=== PATIENT | male | born 1975 | race Caucasian/White ===

== ENCOUNTER 2018-07-21 09:37 | Emergency (ER) | payer OTHER, SELFPAY ==
[2018-07-21 09:38] VITALS: BP 122/66; PULSE 102; RESP 16; TEMP 36.7; O2SAT 99; BMI 35.9
[2018-07-21] MEDS: Smz/Tmp Ds Tablet 1 TABLET PO (11:36)
[2018-07-21] MEDS: Ketorolac 30 MG/ML Syringe IV (11:36)
[2018-07-21 13:46] VITALS: BP 135/85; PULSE 77; RESP 18; O2SAT 98
--- NOTE | 2018-07-21 13:53 | ED.DCSUM_ITS ---
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 He has never had an abscess in the past. No fevers or systemic symptoms. Not a diabetic. - Past Medical History (1) TIA (transient ischemic attack) Status: Chronic (2) Vitamin D deficiency Status: Chronic (3) Anxiety disorder Status: Chronic (4) DVT (deep venous thrombosis) Status: Chronic Past Medical History - Allergies and Home Meds Allergies/Adverse Reactions: Allergies cortisone Allergy (Verified 11/08/16 22:24) Shortness of breath Primary Care Physician: Gonzalo Barger MD [Family Provider] - 3-5 Days if not improving Surgical History: - - tailbone cyst removed left ankle triple arthrodesis Smoking Status: Unknown if ever smoked - Family History Paternal Family History: Reports: Diabetes, Heart Disease Review of Systems All systems negative except as indicated Gastrointestinal: Reports: Abdominal pain Skin: Reports: Rash, Abscess Physical Exam Inital Vital Signs reviewed: Yes General: Well nourished, Well developed, Obese Head: Normocephalic, Atraumatic Eyes: Perrl, EOMI ENT: Moist mucous membranes, No rhinorrhea Neck: Supple, Nontender Abdomen: Soft, Nondistended, Normal bowel sounds, Tender - skin-deep only; LLQ abd wall abscess w/ significant amount of surrounding cellulitis. Skin: - - palpable pointing abscess left lower abd wall w/ surr cellulitis. no spont d/c Neurological: Alert, Oriented x3, Cranial nerves II-XII grossly intact, Normal Strength, Normal Sensation Psychological: Normal affect Diagnostic/Tx/Re-eval - Medical Decision Making Patient requires incision and drainage along with antibiotics for what is a significant surrounding cellulitis around the cutaneous abscess. There is the appearance of a possible abrasion over right where the abscess is located, unknown if that actually occurred or not given the history. He was given a dose of IV vancomycin given the significant cellulitis diameter, which was more than 10 cm, and incision and drainage was performed. See procedure note. I luis a line around the area so that the patient can monitor this. We discussed withdrawing the packing in 48 hours as long as things are appearing to be improving. He was placed on Bactrim to cover suspected MRSA. Encouraged to return for any worsening problems or issues and he is comfortable with this plan. Procedures Procedure(s): complex I&D abscess left lower abd wall --prepped with chlorhexidine, locally anesthetized with 6 cc of plain 1% lidocaine, incised with a #11 blade, a large amount of pus was expressed, it was then probed and deloculated and further purulent discharge was expressed. Cavity was irrigated , packed with strip gauze, dressed with bacitracin. ED Disposition - Plan for ED Patient: Disposition: Home or Assisted Living Chief Complaint: Wound Diagnosis: Cutaneous abscess of abdominal wall Instructions: ED Abscess IandD Prescriptions: Smz/Tmp Ds [Bactrim Ds] 1 tab PO BID #20 tab Referrals: Gonzalo Barger MD [Family Provider] - 3-5 Days if not improving Additional Instructions: If redness/discharge/pain improving in 48 hours, pull packing out completely and discard. Then continue dressing as needed with gauze/antibiotic ointment. In the next 2 days, change dressing as often as you need to to keep clean, dry. Take antibiotics as prescribed until completely gone.
== END 2018-07-21 14:01 | disposition home or self-care (01) ==
PROVIDERS: Emergency Provider Emergency Medicine; PCP Family Medicine
DX: L02.211 Cutaneous abscess of abdominal wall (principal); E66.9 Obesity, unspecified; E55.9 Vitamin D deficiency, unspecified; F41.9 Anxiety disorder, unspecified; Z86.718 Personal history of other venous thrombosis and embolism; Z86.73 Personal history of transient ischemic attack (TIA), and cerebral infarction without residual deficits
CPT/HCPCS: 99285; J7040; A4216

== ENCOUNTER 2018-09-09 08:06 | Emergency (ER) | payer OTHER, SELFPAY ==
[2018-09-09 08:07] VITALS: BP 131/77; PULSE 98; RESP 17; TEMP 36.8; O2SAT 97; BMI 36.2
--- NOTE | 2018-09-09 08:27 | ED.VISSUMM ---
- ER Visit Summary Date of Service: 09/09/18 Chief Complaint: Abdominal abscess History of Present Illness: The patient is a 43 M who presents with abdominal abscess that has been getting worse over the past 3 days. Patient states that 3 weeks ago he had a abscess in the left lower quadrant of his abdomen. Patient had incision and drainage performed at that time. Patient feels like the abscess is returning. Patient also noted some redness and swelling over the suprapubic area. Patient states that the pain is worse with any pressure or palpation. Patient denies any discharge or drainage from that area. Patient admits to some mild purulent drainage from the left lower quadrant area. Patient denies any fevers but admits to subjective chills. Patient denies any nausea or vomiting. Patient denies any urinary complaints. Physical Examination: Vital signs are stable. Patient is afebrile. Patient is in no acute distress. Skin is warm and dry. There is erythema, tenderness, and induration over the suprapubic area. There is no fluctuance. There is no active discharge or drainage. There is also some mild tenderness and mild erythema over the left lower quadrant of the abdomen. There is no induration over this area. There is no active drainage. There is no fluctuance over this area. The remainder the abdomen is soft and nontender. Bowel sounds are normal. Heart was regular rate and rhythm. Lungs are clear and equal bilaterally. There is good respiratory effort noted. The remaining physical exam is within normal limits. Emergency Department Course and Treatment: I do not feel an area of fluctuance that would be amenable to incision and drainage at this time. Patient was instructed to use warm compresses to the areas. Patient was given prescription for clindamycin. Patient was instructed to follow-up with his primary care physician in 5-7 days. Patient understood and was agreeable with the plan. All questions were answered. Disposition: Discharged home Impression: Abdominal wall cellulitis This note was generated with [employer] dictation software. It may contain incorrect words, spelling, and punctuation that were not noted in review of the chart prior to signing ED Disposition - Plan for ED Patient: Disposition: Home or Assisted Living Chief Complaint: Wound Diagnosis: Abdominal wall cellulitis, Obesity (BMI 30-39.9) Instructions: ED Infec Skin Cellulitis Prescriptions: Clindamycin HCl [Cleocin] 300 mg PO Q6H #40 cap Referrals: Annette Jackson DO [Primary Care Provider] -
[2018-09-09 09:17] VITALS: BP 108/74; PULSE 62; RESP 15; O2SAT 98
== END 2018-09-09 09:18 | disposition home or self-care (01) ==
PROVIDERS: Emergency Provider Emergency Medicine; Family Provider Family Medicine; PCP Family Medicine
DX: L03.311 Cellulitis of abdominal wall (principal); K21.9 Gastro-esophageal reflux disease without esophagitis; F17.210 Nicotine dependence, cigarettes, uncomplicated
CPT/HCPCS: 99282

== ENCOUNTER 2020-07-03 21:45 | Emergency (ER) | payer OTHER, SELFPAY ==
[2020-07-03 21:46] VITALS: BP 143/70; PULSE 90; RESP 18; TEMP 37.1; O2SAT 98; BMI 36.2
--- NOTE | 2020-07-03 22:49 | ED.VIS.GEN ---
History of Present Illness Chief Complaint: Abscess Informant: Patient Onset: Yesterday Context: Gradual Onset Timing: Continuous Narrative: Patient is a 44-year-old male with history of acid reflux and abdominal wall abscesses presenting with abscesses to his lower abdominal wall. Patient states he first noticed them yesterday with some pain in his lower center of his abdomen and then today there started to be drainage. Patient states he has had prior abscesses in the past, last year and before, in similar areas that had to be drained and packed. 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 He sweats a lot all day. He denies any other complaints at this time. Is not take anything for pain. States he cannot take NSAIDs because of his stomach. Past Medical History - Allergies and Home Meds Allergies/Adverse Reactions: Allergies cortisone Allergy (Verified 07/03/20 21:48) Shortness of breath Primary Care Physician: Annette Jackson DO [Primary Care Provider] - Past Medical History: - - GERD, abscess Surgical History: - - tailbone cyst removed left ankle triple arthrodesis Smoking Status: Heavy Smoker (>10/day) - Family History Paternal Family History: Reports: Diabetes, Heart Disease Review of Systems General: Denies: Chills, Fever, Sweats Eyes: Denies: Visual changes - bilaterally, Diplopia ENT: Denies: Rhinorrhea, Sore throat Cardiovascular: Denies: Chest pain, Palpitations Respiratory: Denies: Dyspnea, Cough, Dyspnea on exertion Gastrointestinal: Denies: Abdominal pain, Nausea, Vomiting, Diarrhea, Melena, Hematochezia Genitourinary: Denies: Dysuria, Hematuria, Frequency Musculoskeletal: Denies: Back pain, Extremity Pain Skin: Reports: Abscess - Lower abdominal wall. Denies: Rash, Wounds Neurological: Denies: Headache, Weakness, Numbness Physical Exam Vital Signs/Narrative: Vital Signs Temp Pulse Resp BP Pulse Ox 07/03/20 21:46 98.8 F 90 18 143/70 H 98 Inital Vital Signs reviewed: Yes 1 - abscess 2 - abscess General: Well nourished, Well developed, No Acute Distress Head: Normocephalic, Atraumatic Eyes: Perrl, EOMI ENT: Moist mucous membranes, No rhinorrhea Neck: Supple, Nontender Cardiovascular: Regular rate, Regular rhythm, No murmurs Respiratory: No distress, CTA bilaterally, Chest nontender Abdomen: Soft, Nontender, Nondistended, Normal bowel sounds. Negative for: Guarding, Rebound tenderness Back: Nontender, Normal Inspection Extremities: Nontender, No edema Skin: Normal color, - - Multiple scattered areas of erythema consistent with abscess/folliculitis of the lower abdomen where the pannus fold is. Right lower abd abscess is 4 cm in length with overriding fluctuance, erythema and induration. Edema extends past the area of induration and fluctuance. Mid abdomen abscess is 3 cm in length with a small amount of purulent drainage already coming no significant induration. Above the right lower abscess is a 1 cm area of erythema with no associated fluctuance or drainage at this time. Neurological: Alert, Oriented x3, Cranial nerves II-XII grossly intact, Normal Strength, Normal Sensation Psychological: Normal affect, Normal Mood Diagnostic/Tx/Re-eval - Medical Decision Making Patient has abscess with surrounding erythema. Initially like 2 abscesses I suspect is actually 1 but tracks with 2 different areas of drainage. I&D is performed. See procedure note. Patient is given first dose of pain medication as well as antibiotics in the emergency room. He will also be prescribed in [place] for the other area of folliculitis. He is counseled on localized wound care for abscesses. He is given return precautions. He is instructed to try to keep the area clean and dry. He states he is off of the rest of the week from work. Procedures Procedure(s): Incision and drainage. Area anesthetized with 1% lidocaine. Once adequate analgesia is achieved #11 blade used to make a 1.5 cm incision across the area of maximal fluctuance. A large amount of purulent drainage is expressed. The second area, medial to the first is also open with a 0.5 cm incision after analgesia injected. Only blood expressed. Hemostats were used to open up loculations. Area is irrigated with normal saline. Quarter inch packing placed in the main site. Patient tolerated procedure well with no immediate complications. Bacitracin and dressing applied. ED Disposition - Plan for ED Patient: Disposition: Home or Assisted Living Diagnosis: Abscess of skin of abdomen Instructions: ED Abscess Incision And Drainage Prescriptions: Smz/Tmp Ds [Bactrim Ds] 1 tab PO BID #14 tab Prescription Printed Mupirocin [Bactroban] 1 applic TOPICAL TID #1 tube Prescription Printed Cephalexin [Keflex] 500 mg PO [id number] #28 cap Prescription Printed Hydrocodone Bitart/Apap 5-325 [[place] 5MG-325MG] 1 tab PO Q6H PRN PRN 3 Days #12 tab PRN Reason: Pain Prescription Printed Referrals: Annette Jackson DO [Primary Care Provider] - Additional Instructions: Bacitracin ointment to the areas that did not receive an incision and drainage today. Apply warm compresses to encourage further drainage. Please follow-up with your primary care doctor for wound recheck in 1 week. If packing was placed, please remove it after 3 to 5 days if it does not fall out on its own. Soaking in warm water before doing this will make it easier.
[2020-07-03] MEDS: HYDROcodone Bitartrate/Apap 5/325 Tablet PO (23:17)
[2020-07-03] MEDS: Smz/Tmp Ds Tablet 1 TABLET PO (23:17)
[2020-07-03] MEDS: Cephalexin 500 MG Capsule PO (23:17)
[2020-07-04 00:28] VITALS: BP 136/88; PULSE 92; RESP 18; O2SAT 97
== END 2020-07-04 00:28 | disposition home or self-care (01) ==
PROVIDERS: Emergency Provider Emergency Medicine; PCP Family Medicine
DX: L02.211 Cutaneous abscess of abdominal wall (principal); K21.9 Gastro-esophageal reflux disease without esophagitis; Z82.49 Family history of ischemic heart disease and other diseases of the circulatory system
CPT/HCPCS: 49020; 99283

== ENCOUNTER 2021-02-11 08:14 | Emergency (ER) | payer OTHER, SELFPAY ==
[2021-02-11 08:15] VITALS: BP 151/84; PULSE 107; RESP 16; TEMP 36.6; O2SAT 96; BMI 39.0
[2021-02-11] MEDS: Smz/Tmp Ds Tablet 1 TABLET PO (08:46)
--- NOTE | 2021-02-11 10:10 | ED.DCSUM_ITS ---
History of Present Illness Chief Complaint: Abscess Narrative: Patient presenting for evaluation secondary to abdominal wall abscess. Patient reports that he frequently gets these, typically has them incised and drained in the emergency department. Current one has been in place for approximately 2 to 3 days. There is pain associated with it. No fevers or constitutional symptoms. Patient denies that he is diabetic or immunosuppressed. Patient states that he is been taking [id number] analgesics for pain that have not really been alleviating his symptoms. Review of systems otherwise negative. Past Medical History - Allergies and Home Meds Allergies/Adverse Reactions: Allergies cortisone Allergy (Verified 07/03/20 21:48) Shortness of breath Primary Care Physician: Annette Jackson DO [Primary Care Provider] - Prior records reviewed: Yes Past Medical History: - - Higher history of skin abscesses Surgical History: - - tailbone cyst removed left ankle triple arthrodesis Lives: Spouse/ Significant Other Smoking Status: Never smoker Alcohol: None Drugs: None - Family History Paternal Family History: Reports: Diabetes, Heart Disease Review of Systems All systems negative except as indicated General: Denies: Chills, Fever, Sweats Eyes: Denies: Visual changes - bilaterally, Diplopia ENT: Denies: Rhinorrhea, Sore throat Cardiovascular: Denies: Chest pain, Palpitations Respiratory: Denies: Dyspnea, Cough, Dyspnea on exertion Gastrointestinal: Denies: Abdominal pain, Nausea, Vomiting, Diarrhea, Melena, Hematochezia Genitourinary: Denies: Dysuria, Hematuria, Frequency Musculoskeletal: Denies: Back pain, Extremity Pain Skin: Reports: Abscess Neurological: Denies: Headache, Weakness, Numbness Physical Exam Vital Signs/Narrative: Vital Signs Temp Pulse Resp BP Pulse Ox 02/11/21 08:15 97.9 F 107 H 16 151/84 H 96 Inital Vital Signs reviewed: Yes General: Well nourished, Well developed, Obese, No Acute Distress Head: Normocephalic, Atraumatic Eyes: Perrl, EOMI ENT: Moist mucous membranes, No rhinorrhea Neck: Supple, Nontender Cardiovascular: Regular rhythm, No murmurs, Tachycardia Respiratory: No distress, CTA bilaterally, Chest nontender Abdomen: Soft, Nondistended, Normal bowel sounds, - - Examination the abdomen shows a area of fluctuance near the right side of the suprapubic region with surrounding erythema. There is surrounding induration. No lymphangitic streaking. No subcutaneous emphysema. Fluctuance measures approximately 4 cm. Back: Nontender, Normal Inspection Extremities: Nontender, No edema Skin: Normal color, No rash Neurological: Alert, Oriented x3, Cranial nerves II-XII grossly intact, Normal Strength, Normal Sensation Psychological: Normal affect, Normal Mood Diagnostic/Tx/Re-eval - Medical Decision Making Patient presented with an abdominal abscess. I performed a bedside ultrasound on the patient to ensure that this was fluctuance and not from a hernia or bowel. I did confirm this. Incision and drainage was performed as noted in the procedure note. Patient will be placed on Bactrim due to concomitant cellulitis. Due to the recurrence of this the patient will be given a referral to plastic surgery. Procedures Procedure(s): Patient was given written consent for incision and drainage of his abdominal abscess. He was placed in a supine position. Direct lighting was utilized. Area was anesthetized using field block, a total of 10 cc of 1% lidocaine were utilized. The area was cleansed with alcohol. 10 blade was utilized and a superficial cruciate incision was made over the area of greatest fluctuance. A large amount of bloody purulent material was expressed. Loculations were broken with hemostats, the area was irrigated with 250 cc of saline. It was left open. I do not feel that packing was necessary. Patient t olerated this well. ED Disposition - Plan for ED Patient: Disposition: Home or Assisted Living Diagnosis: Abdominal wall abscess Instructions: ED Abscess Incision And Drainage Prescriptions: Smz/Tmp Ds [Bactrim Ds] 1 tablet PO BID #14 tab Transmission Status: Pending to [id number] Referrals: Gonzalo Hunt MD [STAFF PHYSICIAN] - 3-5 Days
[2021-02-11 10:30] VITALS: BP 119/81; PULSE 69; RESP 16; O2SAT 97
[2021-02-11] MEDS: Lidocaine 1% (20 ml mdv) 20 ML Vial INFILT (10:30)
== END 2021-02-11 10:55 | disposition home or self-care (01) ==
PROVIDERS: Emergency Provider Emergency Medicine; PCP Family Medicine
DX: L02.211 Cutaneous abscess of abdominal wall (principal); E66.9 Obesity, unspecified; Z82.49 Family history of ischemic heart disease and other diseases of the circulatory system; Z83.3 Family history of diabetes mellitus
CPT/HCPCS: 10060; 99282

== ENCOUNTER 2022-06-18 04:41 | Emergency (ER) | payer OTHER, SELFPAY ==
[2022-06-18 04:43] VITALS: BP 125/86; PULSE 94; RESP 16; TEMP 36.9; O2SAT 96; BMI 39.4
--- NOTE | 2022-06-18 05:12 | RAD_ITS ---
EXAM: XR LEFT WRIST COMPLETE, 3 OR MORE VIEWS CLINICAL INDICATION: pain pain TECHNIQUE: Frontal, lateral and oblique views of the left wrist. This report was created using [employer] report generation technology. COMPARISON: X-ray hand. FINDINGS: BONES/JOINTS: Unremarkable. No acute fracture. No subluxation. Normal alignment. Preservation of the joint space. No sclerotic or destructive changes observed. SOFT TISSUES: Unremarkable. No soft tissue swelling or gas. No radiopaque foreign body. RAD/Wrist min 3 Views IMPRESSION: Negative left wrist x-rays. Electronically Signed: Tony Wright MD at 6:19 EDT ,
--- NOTE | 2022-06-18 05:12 | RAD_ITS ---
EXAM: XR LEFT HAND COMPLETE, 3 OR MORE VIEWS CLINICAL INDICATION: pain pain TECHNIQUE: Frontal, lateral and oblique views of the left hand. This report was created using [employer] report generation technology. COMPARISON: X-ray left wrist. FINDINGS: BONES/JOINTS: Unremarkable. No acute fracture. No subluxation. Normal alignment. Preservation of the joint space. No sclerotic or destructive changes observed. SOFT TISSUES: Unremarkable. No soft tissue swelling or gas. No radiopaque foreign body. RAD/Hand Min 3 Views IMPRESSION: Negative left hand x-rays. Electronically Signed: Tony Wright MD at 6:19 EDT ,
[2022-06-18] MEDS: Ketorolac 30 MG/ML Syringe IM (05:22)
--- NOTE | 2022-06-18 06:38 | EDS_ITS ---
HPI History of Present Illness Chief Complaint: Upper Extremity Injury Narrative Narrative: Patient is a 46-year-old male with past medical history of transischemic attack as well as tobacco dependence who presents from work with left wrist injury. 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 He states he has pain with any type of motion and there was concern for underlying fracture with the symptoms and therefore he was sent in for evaluation. The patient reports he is right-hand dominant. [facility] Medical History (Updated 06/18/22 @ 06:[address] Tomasz Lewis, DO) Anxiety disorder DVT (deep venous thrombosis) GERD (gastroesophageal reflux disease) Hypoxia Left ankle effusion Left leg numbness Left leg weakness Lethargy Obesity (BMI 30-39.9) Smoker TIA (transient ischemic attack) Tobacco dependence Vitamin D deficiency Home Medications omeprazole 20 mg capsule,delayed release 20 mg PO DAILY 12/28/14 [History Last Taken 11/08/16] Vitamin D3 5,000 iu PO BID Vitamin D deficiency 01/17/16 [History Last Taken 11/08/16] Allergy/AdvReac Type Severity Reaction Status Date / Time cortisone Allergy Shortness Verified 02/13/21 08:51 of breath Social History (Updated 02/13/21 @ 14:54 by Estela MACARIO, PA-C) Smoking Status: Current some day smoker tobacco type: cigarettes ROS ROS ED Constitutional Constitutional ED: Denies chills or fever(s) ENT ENT ED: Denies sore throat Cardiovascular Cardiovascular: Denies chest pain Respiratory/Chest Respiratory/Chest: Denies cough or dyspnea Gastrointestinal Gastrointestinal: Denies abdominal pain, diarrhea, nausea or vomiting Genitourinary Genitourinary ED: Denies dysuria Musculoskeletal Musculoskeletal: Reports other Details: Positive left wrist pain ; Denies myalgias Integumentary Denies Abrasions or rash Neurologic Neurologic: Denies headache(s) or paresthesias Hematologic/Lymphatic Hematologic/Lymphatic: Denies easy bleeding or easy bruising EXAM Physical Exam Const Vital Signs: 06/18/22 04:43 Temperature 98.4 F Temperature Source Oral Pulse Rate 94 Respiratory Rate 16 Blood Pressure 125/86 H Blood Pressure Mean 99 Pulse Ox 96 Oxygen Delivery Method Room Air Positive well nourished, well developed and obese General Appearance ED: well developed Nutritional Appearance: obese Eyes PERRL and EOMs intact bilaterally Neck supple Resp normal respiratory effort and clear to auscultation bilaterally Cardio regular rate and regular rhythm Extremity Extremity Narrative: Left upper extremity is neurovascularly intact; AIN/PIN are intact and normal. There is soft tissue swelling dorsal aspect of the distal left forearm/wrist and hand. No obvious bony deformity or joint effusion. No ligamentous laxity or tendon injury noted. Active range of motion is decreased secondary to pain. No pain in the anatomical snuffbox. Remainder the exam is normal. Neuro oriented x3 and CN's II-XII intact bilaterally Sensorium / Orientation: alert Psych mental status grossly normal Skin no rashes or lesions noted MDM MDM MDM Narrative Medical decision making narrative: Patient presented to the ER after report of of sudden onset left pain with lifting. He does have soft tissue swelling but no obvious bony deformity or joint effusion. Clinically he presents as a wrist sprain but with concern for underlying fracture x-rays were ordered. X-rays revealed no acute fracture or dislocation or joint effusion or foreign body. Therefore at this time there is no need for further work-up he can be placed in a wrist brace for stabilization but as he is neurovascularly intact without signs of decreased blood flow or [place]ch [place] issue/injury he is otherwise safe for discharge Radiography Diagnostic Testing: Clinical Impression(s) from Imaging Studies Hand X-Ray 06/18/22 05:12 IMPRESSION: Negative left hand x-rays. Electronically Signed: Tony Wright MD at 6:19 EDT Reading Location ID and State: [facility] / [place] , Service support , Wrist X-Ray 06/18/22 05:12 IMPRESSION: Negative left wrist x-rays. Electronically Signed: Tony Wright MD at 6:19 EDT , Treatment and Re-Evaluation Narrative: X-ray of the left hand and left wrist as documented by the emergency medicine physician reveals no acute fracture dislocation joint effusion or foreign body Discharge Plan Triage Chief Complaint: Upper Extremity Injury ED Provider: Tomasz Lewis Dx/Rx/DC Orders Clinical Impression: Left wrist sprain, Tobacco dependence Instructions: ED Wrist Sprain Prescriptions: No Action omeprazole 20 MG capsule 20 mg PO DAILY Label Comments: heartburn Vitamin D3 5,000 iu PO BID Label Comments: supplement Stand Alone Forms: Work Status Form Primary Care Provider: Anentte Jackson Referrals: Annette Jackson DO [Primary Care Provider] - Disposition Disposition: Home, Self Care
[2022-06-18 06:46] VITALS: BP 134/96; PULSE 79; RESP 16; O2SAT 96
== END 2022-06-18 06:53 | disposition home or self-care (01) ==
PROVIDERS: Emergency Provider Emergency Medicine; PCP Family Medicine; Visit Provider Emergency Medicine
DX: S63.92XA Sprain of unspecified part of left wrist and hand, initial encounter (principal); F17.210 Nicotine dependence, cigarettes, uncomplicated; E55.9 Vitamin D deficiency, unspecified; Z79.899 Other long term (current) drug therapy; E66.9 Obesity, unspecified; Z68.39 Body mass index [BMI] 39.0-39.9, adult; K21.9 Gastro-esophageal reflux disease without esophagitis; Z86.718 Personal history of other venous thrombosis and embolism; X50.0XXA Overexertion from strenuous movement or load, initial encounter; Y93.89 Activity, other specified; Y99.0 Civilian activity done for income or pay; Y92.89 Other specified places as the place of occurrence of the external cause
CPT/HCPCS: 73110; 73130; 96372; 99283

== ENCOUNTER 2022-07-20 02:56 | Inpatient (IN) | payer OTHER, SELFPAY ==
[2022-07-20] VITALS (41 sets, daily range): BP systolic 136–187; BP diastolic 67–110; PULSE 54–93; RESP 1–27; TEMP 36.3–37.1; O2SAT 91–100; BMI 39.4; BMI 37.8
--- NOTE | 2022-07-20 03:00 | EKG12_ITS ---
Test Reason : CP Blood Pressure : / mmHG Vent. Rate : 066 BPM Atrial Rate : 066 BPM P-R Int : 152 ms QRS Dur : 086 ms QT Int : 400 ms P-R-T Axes : 035 063 047 degrees QTc Int : 419 ms Normal sinus rhythm Normal ECG Confirmed by JAZZY HUTCHINSON, ALVARADO ([id number]), makeup editor ALLY ZHENG ([id number]) on 07/21/2022 6:17:16 AM Referred By: BB Confirmed By:ALVARADO PURCELL MD
--- NOTE | 2022-07-20 03:14 | CT_ITS ---
STUDY: CT HEAD STROKE PROTOCOL W/O CONTRAST INJECTION REASON FOR EXAM: Male, 46 years old. Neurologic deficit, acute stroke suspected. Left sided weakness. TECHNIQUE: Transaxial CT imaging of the brain was performed without administration of intravenous contrast material. Individualized dose optimization techniques were used for this CT. COMPARISON: March 07, 2016. FINDINGS: Normal soft tissue structures. Normal calvarium. Normal size ventricles and extra-axial spaces for the patient''s age. Normal white matter tracts of the cerebral hemispheres. Old bilateral basal ganglia lacunar infarctions new since the prior study. Normal thalami. Normal brainstem. Normal cerebellum. There is a small area of low attenuation in the right insular cortex which is probably old. A subacute infarction cannot be entirely excluded. There is no intracranial hemorrhage. There are no findings of an acute ischemic infarction. Normal visualized paranasal sinuses. ASPECT score: 10 CT/STROKE Brain/Head without Cont IMPRESSION: No intracranial hemorrhage. Small area of low attenuation which probably represents old ischemia right insular cortex. A subacute infarction cannot be entirely excluded. Old bilateral basal ganglia lacunar infarctions. N.B. : The above Results were Read Back by Darwin Irizarry MD to Jason Bryant MD, and understanding confirmed on 07/20/2022 03:50:52 (ET). Electronically Signed: Darwin Irizarry MD at 4:00 EDT Reading Location ID and State: [id number] / , Service support ,
--- NOTE | 2022-07-20 03:14 | CT_ITS ---
We are attempting to reach an attending provider to discuss findings. An addendum with communication details will be sent when the communication is complete. STUDY: CTA HEAD AND NECK WITH CONTRAST REASON FOR EXAM: Male, 46 years old. Neurologic deficit. Left-sided weakness. RADIATION DOSAGE (If Supplied By Facility): CTDIvol = ( 26.59 ) mGy, DLP = ( 2144.85 ) mGycm TECHNIQUE: CT angiography was performed with a multi-detector CT scanner. Data acquisition was obtained from the skull base through the vertex following intravenous administration of 100 mL Isovue-370. MIP images were reconstructed from the axial data set. Post-processing of the angiographic images was performed, with multiplanar reformation and 3D reconstruction. Individualized dose optimization techniques were used for this CT. COMPARISON: CT head July 20, 2022. FINDINGS: Normal bilateral petrous carotid arteries. Normal right cavernous carotid artery with a normal supraclinoid bifurcation. Normal left cavernous carotid artery with a normal supraclinoid bifurcation. Normal right A1 segments of the anterior cerebral artery. Normal left A1 segments of the anterior cerebral artery. Normal intact anterior communicating artery (ACOM). Normal bilateral A2 segments of the anterior cerebral arteries. Normal right M1 and M2 segments of the middle cerebral arteries, with a normal M1 bifurcation. Normal left M1 and M2 segments of the middle cerebral arteries, with a normal M1 bifurcation. Normal right posterior communicating artery (PCOM). Normal left posterior communicating artery (PCOM). Normal bilateral vertebral arteries. Normal basilar artery with a normal basilar bifurcation. The visualized bilateral superior cerebellar (SCA) arteries are normal. Normal right P1, P2 and visualized P3 segments of the posterior cerebral artery. origin of the left posterior cerebral artery which is a normal variant. There is no demonstrated aneurysm of the [place]. No change in appearance of the brain since the prior recent study. AORTIC ARCH: Normal visualized aortic arch. Normal origins of the brachiocephalic, left common carotid, and left subclavian arteries. RIGHT CAROTID ARTERIES: Normal right common carotid artery (CCA). Normal right common carotid bulb. Normal origin of the right internal carotid (ICA) artery without a hemodynamically significant stenosis. Normal visualized cervical portion of the right internal carotid artery. Normal origin of the right external carotid artery (ECA). LEFT CAROTID ARTERIES: Normal left common carotid artery (CCA). Normal left common carotid bulb. Normal origin of the left internal carotid (ICA) artery without a hemodynamically significant stenosis. Normal visualized cervical portion of the left internal carotid artery. Normal origin of the left external carotid artery (ECA). VERTEBRAL ARTERIES: Normal bilateral vertebral arteries. CT/STROKE CTA Head AND Neck W/Con IMPRESSION: Normal CTA Head and neck with contrast. Electronically Signed: Darwin Irizarry MD at 4:09 EDT Reading Location ID and State: [id number] / , Service support ,
--- NOTE | 2022-07-20 03:14 | CT_ITS ---
STUDY: CTA CHEST REASON FOR EXAM: Male, 46 years old. Stroke symptoms, chest pain. RADIATION DOSAGE (If Supplied By Facility): CTDIvol = ( 26.59 ) mGy, DLP = ( 2144.85 ) mGycm TECHNIQUE: The examination was performed with the intravenous administration of 100 mL Isovue-370. Post-processing of the angiographic images was performed, with multiplanar reformation and maximum intensity projections.. Individualized dose optimization techniques were used for this CT. COMPARISON: None. FINDINGS: Normal enhancement of the main pulmonary artery and right and left pulmonary arteries. Normal enhancement of the bilateral peripheral pulmonary arteries. There is no demonstrated pulmonary embolism. Normal thoracic aorta and visualized great vessels. There is no demonstrated aortic dissection. Normal heart and pericardium. Coronary artery calcifications vs artifact. Normal mediastinum. Normal hilar regions. Normal visualized trachea and bronchi. The lungs are well expanded. No focal infiltrates or effusions. No pneumothorax. Normal pleura. Normal chest wall structures. Normal osseous structures. 1.5 cm stone dependent portion of the gallbladder. CT/CTA Chest W/WO Contrast IMPRESSION: No pulmonary embolus or thoracic aortic dissection. Coronary artery calcifications versus artifact. Cholelithiasis. Electronically Signed: Darwin Irizarry MD at 4:38 EDT Reading Location ID and State: [id number] / , Service support ,
--- NOTE | 2022-07-20 03:15 | ED.VIS.STROK ---
HPI History of Present Illness Chief Complaint: Chest Pain Informant: patient Onset/Context/Timing Onset: Hours (1) Context: Sudden Onset Timing: Continuous Quality and Location: Positive for Left Arm Parasthesia, Left Leg Parasthesia, Left Arm Weakness and Left Leg Weakness Onset: Sudden Current Severity: Severe Maximum Severity: Severe Worsened by: Nothing Relieved by: Nothing Associated Symptoms Associated Symptoms: Positive for Headache (Started after nitro given by EMS) and Chest Pain; Negative for Nausea or Vomiting Narrative Narrative: Patient states he was at work. He was lifting things and all of a sudden his left side gave out on him like it was not there anymore. He states shortly after that he had severe 10/10 chest pain. EMS was called, evaluated him, they gave him nitroglycerin for the chest pain, and brought him here to the emergency department. Patient states his left side still weak and numb. He states he had a TIA in 2013, he is supposed to be on aspirin every day but he does not take it, and he smokes. [facility] Medical History (Updated 07/20/22 @ 04:[address] Elza Kan MD) Anxiety disorder DVT (deep venous thrombosis) GERD (gastroesophageal reflux disease) Obesity (BMI 30-39.9) Smoker TIA (transient ischemic attack) Tobacco dependence Vitamin D deficiency Home Medications omeprazole 20 mg capsule,delayed release 20 mg PO DAILY 12/28/14 [History Last Taken 11/08/16] Vitamin D3 5,000 iu PO BID Vitamin D deficiency 01/17/16 [History Last Taken 11/08/16] Allergy/AdvReac Type Severity Reaction Status Date / Time cortisone Allergy Shortness Verified 07/20/22 03:02 of breath Family History (Updated 07/20/22 @ 03:[address] Elza Kan MD) Father Heart disease Diabetes Surgical History (Updated 07/20/22 @ 03:[address] Elza Kan MD) History of ankle surgery History of removal of cyst Hx of arthrodesis Social History (Updated 07/20/22 @ 03:[address] Elza Kan MD) household members: none Smoking Status: Current some day smoker tobacco type: cigarettes Smoking packs per day: 0.5 Smoking cigarettes per day: 10.0 alcohol intake: current alcohol intake frequency: a few times a month substance use type: does not use ROS ROS ED Constitutional Constitutional ED: Denies chills or fever(s) Eyes Eyes: Denies change in vision or diplopia ENT ENT ED: Denies rhinorrhea or sore throat Cardiovascular Cardiovascular: Reports chest pain; Denies palpitations Respiratory/Chest Respiratory/Chest: Denies cough or dyspnea Gastrointestinal Gastrointestinal: Denies abdominal pain, diarrhea, nausea or vomiting Genitourinary Genitourinary ED: Denies dysuria or hematuria Musculoskeletal Musculoskeletal: Denies back pain or neck pain Integumentary Denies abscess or rash Neurologic Neurologic: Reports headache(s), paresthesias and weakness Psychiatric Psychiatric: Denies anxiety or suicidal thoughts EXAM Physical Exam Const Vital Signs: 07/20/22 02:58 07/20/22 03:46 07/20/22 03:14 Temperature 97.9 F Temperature Source Temporal Pulse Rate 65 62 Respiratory Rate 18 27 H Blood Pressure 148/96 H 162/67 H 136/68 H Blood Pressure Mean 113 90 Blood Pressure Source Blood Pressure Position Blood Pressure Location Pulse Ox 91 96 Oxygen Delivery Method Room Air Room Air 07/20/22 03:20 07/20/22 03:46 07/20/22 04:01 Temperature 97.9 F 97.9 F Temperature Source Temporal Temporal Temporal Pulse Rate 62 62 55 L Respiratory Rate 25 H 27 H 17 Blood Pressure 136/68 H 136/68 H 156/110 H Blood Pressure Mean 90 90 125 Blood Pressure Source Monitor Monitor Monitor Blood Pressure Position Semi-Fowlers Semi-Fowlers Semi-Fowlers Blood Pressure Location Right Arm Right Arm Right Arm Pulse Ox 96 96 96 Oxygen Delivery Method Room Air Room Air Room Air 07/20/22 04:01 Temperature Temperature Source Pulse Rate 60 Respiratory Rate 22 H Blood Pressure 168/100 H Blood Pressure Mean 122 Blood Pressure Source Monitor Blood Pressure Position Semi-Fowlers Blood Pressure Location Right Arm Pulse Ox 97 Oxygen Delivery Method Room Air Positive well nourished and well developed General Appearance ED: well developed and NAD HEENT Reports moist mucous membranes normocephalic and atraumatic Eyes PERRL and EOMs intact bilaterally Neck full ROM, no lymphadenopathy and supple Neck Narrative: No audible carotid bruits Chest Wall inspection of chest normal and palpation of chest normal Resp normal respiratory effort and clear to auscultation bilaterally Cardio regular rate, regular rhythm, no murmurs and peripheral pulses 2+ throughout Rate: Negative for tachycardic Peripheral Pulses: radial pulses present bilateral 2+ GI non-tender and non-distended Auscultation: normoactive bowel sounds Palpation: soft Back/Spine no CVA tenderness General Back: other FROM Extremity normal to inspection General Extremety ED: Negative for edema, pulses abnormal or tenderness General Extremity: Negative for edema or pulses abnormal Neuro oriented x3 and CN's II-XII intact bilaterally Neuro Narrative: Weak on left side with decreased sensation no jeana-inattention see below Sensorium / Orientation: awake and alert Psych mental status grossly normal Skin no rashes or lesions noted and no wounds NIHSS NIHSS Initial: 1a Level of Consciousness: 0 1b LOC Questions (Score 2 if aphasic/stupor): 0 1c LOC Commands (Only score 1st attempt): 0 2 Best Gaze (If aphasic, use reflexive mvmts.): 0 3 Visual: 0 4 Facial Palsy: 0 5 Motor Arm Right (UN = amputation/fusion): 0 5 Motor Arm Left: 1 6 Motor Leg Right: 0 6 Motor Leg Left: 2 7 Limb ataxia (Only + if out of proportion): 0 8 Sensory (Aphasia/stupor=0 or 1, coma=2): 2 9 Best Language: 0 10 Dysarthria (mute, coma=2, intubated=UN): 0 11 Extinction and Inattention (only scored if +): 0 Total Score: 5 MDM MDM MDM Narrative Medical decision making narrative: EMS nor nursing gave me any indication that this patient may be an acute stroke but upon my evaluation I am concerned that he has an acute stroke. I called a stroke alert myself right after my evaluation. His NIH is 5, his leg is worse than his arm, and I do not think this is simply referred discomfort to his arm from his chest discomfort, which he states interestingly is almost completely resolved after the nitroglycerin that EMS gave. Furthermore, he is a smoker, with a history of a TIA and on the CT, lacunar infarct, and he is noncompliant with his aspirin and takes no antiplatelet or anticoagulant otherwise. He is high risk for a stroke and a tPA candidate given the severity of his deficits and the timing, and likelihood he is having an acute ischemic stroke. I discussed this with the patient, as well as a low risk of bleeding, and he was agreeable with my judgment. I went through the tPA checklist, he has no contraindications, I ordered tPA early, upon return from CT prior to [facility] being in, I reviewed the CT, showing no hemorrhage and radiologist confirming that, in looking at his aortic arch which I also CT aid in confirming that the patient does not have an acute dissection, I confirmed to nursing to give the tPA. During this, Dr. Riojas came on telemedicine monitor and evaluated the patient with me and agrees with giving tPA. His platelets returned at 268, and he has no contraindications. CTA negative for LVO. Plan is to admit to ICU. Lab Data Attestation: I reviewed the patient's lab results. Labs: Laboratory Results - last 24 hr 07/20/22 07/20/22 07/20/22 02:44 02:44 02:44 WBC 19.5 H RBC 4.73 Hgb 14.7 Hct 43.9 MCV 92.8 MCH 31.1 MCHC 33.5 RDW Std Deviation 44.0 H RDW Coeff of Francisca 12.9 Plt Count 268 MPV 10.8 Immature Gran % (Auto) 1.200 H Neut % (Auto) 71.5 H Lymph % (Auto) 15.3 L Moca % (Auto) 9.0 Eos % (Auto) 2.4 Baso % (Auto) 0.6 Absolute Neuts (auto) 14.0 H Absolute Lymphs (auto) 2.99 Nucleated RBC % 0 Diff Path Review May foll PT 13.2 INR 1.0 APTT 28.1 Sodium 138 Potassium 3.8 Chloride 106 Carbon Dioxide 25.0 Anion Gap 7 BUN 13 Creatinine 0.91 Estim Creat Clear Calc 108.03 Est GFR (MDRD) Af Amer 116 Est GFR (MDRD) Non-Af 95 BUN/Creatinine Ratio 14.3 Glucose 127 H Calcium 8.8 Magnesium Troponin I High Sens 5 TSH POC Glucose 07/20/22 07/20/22 02:44 03:18 WBC RBC Hgb Hct MCV MCH MCHC RDW Std Deviation RDW Coeff of Francisca Plt Count MPV Immature Gran % (Auto) Neut % (Auto) Lymph % (Auto) Moca % (Auto) Eos % (Auto) Baso % (Auto) Absolute Neuts (auto) Absolute Lymphs (auto) Nucleated RBC % Diff Path Review PT INR APTT Sodium Potassium Chloride Carbon Dioxide Anion Gap BUN Creatinine Estim Creat Clear Calc Est GFR (MDRD) Af Amer Est GFR (MDRD) Non-Af BUN/Creatinine Ratio Glucose Calcium Magnesium 2.0 Troponin I High Sens TSH 1.13 POC Glucose 137 H Radiography Diagnostic Testing: Clinical Impression(s) from Imaging Studies Brain CT 07/20/22 03:14 IMPRESSION: No intracranial hemorrhage. Small area of low attenuation which probably represents old ischemia right insular cortex. A subacute infarction cannot be entirely excluded. Old bilateral basal ganglia lacunar infarctions. N.B. : The above Results were Read Back by Darwin Irizarry MD to Jason Bryant MD, and understanding confirmed on 07/20/2022 03:50:52 (ET). Electronically Signed: Darwin Irizarry MD at 4:00 EDT Reading Location ID and State: [place] / , Service support , ADDENDUM: 07/20/22 0407 IMPRESSION: No intracranial hemorrhage. Small area of low attenuation which probably represents old ischemia right insular cortex. A subacute infarction cannot be entirely excluded. Old bilateral basal ganglia lacunar infarctions. N.B. : The above Results were Read Back by Darwin Irizarry MD to Jason Bryant MD, and understanding confirmed on 07/20/2022 03:50:52 (ET). Electronically Signed: Darwin Irizarry MD at 4:00 EDT Reading Location ID and State: [place] , Service support , Chest CTA 07/20/22 03:14 IMPRESSION: No pulmonary embolus or thoracic aortic dissection. Coronary artery calcifications versus artifact. Cholelithiasis. Electronically Signed: Darwin Irizarry MD at 4:38 EDT Reading Location ID and State: [place] / , Service support , Head/Neck CTA 07/20/22 03:14 IMPRESSION: Normal CTA Head and neck with contrast. Electronically Signed: Darwin Irizarry MD at 4:09 EDT Reading Location ID and State: [place] Es[place]ivel MD , Service support , ADDENDUM: 07/20/22 0445 IMPRESSION: Normal CTA Head and neck with contrast. N.B. : , AA, confirmed on 07/20/2022 04:38:37 (ET) that the referring physician received the results and does not require a verbal communication. Electronically Signed: Darwin Irizarry MD at 4:09 EDT , Rhythm Strip Rhythm Strip: Sinus Rhythm Rate: 65 Ectopy: None EKG Initial EKG: Attestation: I personally reviewed and interpreted this EKG as follows: Interpretation: Sinus Rhythm and No Acute Injury Pattern Comments: Normal EKG Stroke Documentation Questions Stroke Team Activated: Yes (Upon my evaluation in ED) Reviewed Inclusion/Exclusion criteria: Yes Was Patient considered for Endovascular Intervention?: No-CTA negative, determined not to be an endovascular candidate IV Alteplase (t-PA) Administered: Yes No contraindications for IV Alteplase (t-PA) administration.: Yes Alteplase (t-PA) risks, benefits, alternative discussed: Yes Critical Care Time Critical Care Time: Yes Critical care time (excluding procedures): 30-74 minutes (45 min), Including time spent:, Discussing w/Patient &/or Family/Personal Lines Agent, Discussing w/Consultants, Arranging Admission or Transfer and Performing Direct Patient Care at Bedside Discharge Plan Dx/Rx/DC Orders Clinical Impression: Acute ischemic right MCA stroke, Chest pain Disposition Disposition: Acute Care Hospital [facility]
[2022-07-20 03:36] LABS: Absolute Lymphocyte Count 2.99 X10^3/uL (0.83-4.51); Basophil# 0.11 X10^3/uL; Basophil% 0.6 % (0-1); Eosinophil# 0.46 X10^3/uL; Eosinophils% 2.4 % (0-5); Hematocrit 43.9 % (40-54); Hemoglobin 14.7 g/dL (13.0-16.5); Lymphocyte # 2.99 X10^3/ul (0.83-4.51); Lymphocyte % 15.3 % (19-41); Mean Corp Hgb Conc 33.5 g/dL (32-36); Mean Corpuscular Hgb 31.1 pg (27.0-32.0); Mean Corpuscular Volume 92.8 fL (80-94); Mean Platelet Vol. 10.8 fl (6.2-12.0); Monocyte# 1.75 X10^3/uL; NRBC Flagged by Analyzer 0 % (0-5); Neutrophil # 13.96 X10^3/uL (2.7-7.7); Neutrophil % 71.5 % (47-70); POSITIVE DIFFERENTIAL YES; Platelet Count 268 K/mm3 (150-450); RBC Distribution Width CV 12.9 % (11.6-14.6); Red Blood Count 4.73 M/mm3 (4.6-6.2); White Blood Count 19.5 K/mm3 (4.4-11.0)
[2022-07-20 03:40] LABS: Differential Indicated SCAN CRITERIA MET
[2022-07-20 03:41] LABS: Prothrombin Time (Protime)PT. 13.2 SECONDS (11.7-14.9)
[2022-07-20 03:42] LABS: Partial Thromboplast Time 28.1 Seconds (24.1-36.2)
[2022-07-20 03:50] LABS: Anion Gap 7 (5-15); BUN 13 mg/dL (7-18); BUN/Creat Ratio 14.3 RATIO (10-20); Calcium,Total 8.8 mg/dL (8.5-10.1); Chloride 106 mmol/L (98-107); Creatinine, Serum 0.91 mg/dL (0.70-1.30); EST Glomerular Filtration Rate 95 mL/min (>60); Est Glom Filt Rate - Afr Amer 116 mL/min (>60); Estimated Creatinine Clearance 108.03 ml/min; Glucose 127 mg/dL (74-106); Potassium 3.8 mmol/L (3.5-5.1); Sodium Level 138 mmol/L (136-145); Troponin-I HS 5 pg/mL (3.0-78.0)
[2022-07-20 04:01] LABS: Bedside Glucose 137 mg/dL (74-106)
--- NOTE | 2022-07-20 04:10 | RAD_ITS ---
STUDY: X-RAY CHEST REASON FOR EXAM: Male, 46 years old. Neurologic deficit, stroke suspected. TECHNIQUE: Single AP portable view of the chest. COMPARISON: February 06, 2016. FINDINGS: No focal infiltrates or effusions. No pneumothorax. Normal size heart. Normal mediastinum and eder. Normal visualized pulmonary arteries. Normal visualized aortic arch and descending thoracic aorta. Normal visualized thoracic spine. Normal visualized ribs, clavicles, and shoulders. There is no demonstrated abnormality of the visualized soft tissue structures of the upper abdomen. RAD/Chest 1 View IMPRESSION: No acute cardiopulmonary disease. Electronically Signed: Darwin Irizarry MD at 4:43 EDT Reading Location ID and State: [id number] / , Service support ,
--- NOTE | 2022-07-20 04:17 | PCM.HP.STD ---
HPI - General General Date of Admission: 07/20/22 Date of Service: 07/20/22 Chief Complaint: L sided weakness, paresthesias, chest pain. HPI Narrative The patient is a 46 y/o M w/ PMHx: Anxiety and Depression, GERD, Tobacco use, Obesity, Hx VTE (DVT), Hx TIA 2013 non-compliant with daily ASA therapy who presents to the [facility] ED on 07/20/22 with history of onset while at work at ~ 2 am while attempting to lift items, sudden onset L sided weakness and paresthesias with immediately onset following chest discomfort, noted to be severe, pressure-like sensation rated 10 out of 10 with associated dyspnea, diaphoresis, nausea without emesis with EMS call who administered NG with onset headache following w/ ongoing L sided weakness/paresthesias upon ED evaluation. Initial ED NIHSS 5 with 1 for left motor arm, 2 left motor leg, 2 sensory. Upon ED arrival he notes chest pain notably improved, 1-2/10 in severity with still some mild nausea complaints. Given presentation immediate stroke alert called and patient felt tPA candidate. Work-up in the ED included T97.9, heart rate 65, BP 140/96, respiratory rate 18, 91% on room air, CBC with WBC 19.5, hemoglobin 14.7, platelet 268 with left shift, unremarkable coags, BMP unremarkable aside glucose 127, troponin 5, CT brain with no acute intracranial hemorrhage, small area of low-attenuation probably personal banking representative of an old ischemic right insular cortex, however a subacute infarction cannot entirely be excluded, old bilateral basal ganglia lacunar infarctions, CTA head and neck without acute findings, CTPA with no pulmonary embolus or thoracic aortic dissection, coronary artery calcifications versus artifact and evidence of cholelithiasis, chest x-ray with no acute cardiopulmonary findings EKG with SR without acute evidence of ischemia. In the ED patient initiated on maintenance IV fluids, administer Tylenol 650 mg x 1 and as noted initiated on alteplase. Following onset TPA upon evaluation patient with improved sensation to the LLE, able to lift LLE off bed with drift but it does not hit and LUE also improved. [facility] Medical History (Updated 07/20/22 @ 04:[address] Elza Kan MD) Anxiety disorder DVT (deep venous thrombosis) GERD (gastroesophageal reflux disease) Obesity (BMI 30-39.9) Smoker TIA (transient ischemic attack) Tobacco dependence Vitamin D deficiency Home Medications omeprazole 20 mg capsule,delayed release 20 mg PO DAILY 12/28/14 [History Last Taken 11/08/16] Vitamin D3 5,000 iu PO BID Vitamin D deficiency 01/17/16 [History Last Taken 11/08/16] Allergy/AdvReac Type Severity Reaction Status Date / Time cortisone Allergy Shortness Verified 07/20/22 03:02 of breath Family History (Updated 07/20/22 @ 03:[address] Elza Kan MD) Father Heart disease Diabetes Family History other other (Patient denies knowledge of his maternal family history. She left when he was 8 years old.) Surgical History (Updated 07/20/22 @ 03:[address] Elza Kan MD) History of ankle surgery History of removal of cyst Hx of arthrodesis Social History (Updated 07/20/22 @ 04:[address] Elza Kan MD) household members: significant other Smoking Status: Current some day smoker tobacco type: cigarettes Smoking packs per day: 0.5 Smoking cigarettes per day: 10.0 alcohol intake: current alcohol intake frequency: a few times a month substance use type: does not use ROS ROS Narrative Admission Review of Systems: CONSTITUTIONAL: No weight loss, fever, chills, + weakness or fatigue. HEENT: Eyes: No visual loss, blurred vision, double vision or yellow sclerae. Ears, Nose, Throat: No hearing loss, sneezing, congestion, runny nose or sore throat. SKIN: No rash or itching, lesions, wounds. CARDIOVASCULAR: + chest pain, chest pressure or chest discomfort, No palpitations, edema, orthopnea, syncopal events. RESPIRATORY: No shortness of breath, cough or sputum, wheezing, hemoptysis. GASTROINTESTINAL: No anorexia, nausea, vomiting or diarrhea, abdominal pain, melena, BRBPR. GENITOURINARY: No dysuria, frequency, urgency or retention. NEUROLOGICAL: + Left-sided weakness, lower extremity greater than upper extremity, paresthesias, headache. No dizziness, syncope, paralysis, ataxia, change in bowel or bladder control, seizure. MUSCULOSKELETAL: + muscle, back pain, joint pain or stiffness. HEMATOLOGIC: No anemia, bleeding or bruising. LYMPHATICS: No enlarged nodes. No history of splenectomy. PSYCHIATRIC: + history of depression or anxiety. ENDOCRINOLOGIC: No reports of sweating, cold or heat intolerance. No polyuria or polydipsia. ALLERGIES: No history of asthma, hives, eczema or rhinitis. Vital Signs Vital Signs Vital Signs: 07/20/22 02:58 07/20/22 03:46 07/20/22 03:14 Temperature 97.9 F Temperature Source Temporal Pulse Rate 65 62 Respiratory Rate 18 27 H Blood Pressure 148/96 H 162/67 H 136/68 H Blood Pressure Mean 113 90 Blood Pressure Source Blood Pressure Position Blood Pressure Location Pulse Ox 91 96 Oxygen Delivery Method Room Air Room Air 07/20/22 03:20 Temperature 97.9 F Temperature Source Temporal Pulse Rate 62 Respiratory Rate 25 H Blood Pressure 136/68 H Blood Pressure Mean 90 Blood Pressure Source Monitor Blood Pressure Position Semi-Fowlers Blood Pressure Location Right Arm Pulse Ox 96 Oxygen Delivery Method Room Air Weight Weight: 283 lb 4.704 oz Body Mass Index (BMI) 39.4 Physical Exam Narrative Physical Examination: General: Awake, alert, oriented x 3 and cooperative, seated upright in the ED bed in no apparent distress, notes headache from NG, mild nausea, chest pain improved, 1-2/10 in severity. Skin: Normal color, normal turgor, no icterus, no cyanosis. HEENT: AT/NC, EOMI, PERRLA, MMM, no carotid bruits or JVD noted. Lungs: Mildly diminished, greater bases, poor effort, no rales, ronchi or wheezing. Heart: Regular rate and rhythm; no gallop, rub audible. Abdomen: Soft, obese, NTTP, ND, distant normal BS, no HSM. Extremities: No cyanosis, clubbing, or edema. Neurological: Patient awake, alert, oriented as noted, cognitive function appears baseline intact; pupils equally reactive to light and accommodation, cranial nerves grossly normal, moving all 4 extremities with improving left-sided weakness, left lower extremity greater than left upper extremity, difficulty with left-sided finger-nose and [id number] L sided but improved since initial evaluation per discussion with RN, right side intact, equivocal Babinski, sensation decreased/altered left side but improving, prior LLE without sensation, now tingling/pins, able to keep LLE off bed with drift, LUE minimal drift. Psychiatric: Affect appears fatigued otherwise normal, no acute evidence of depressive or anxiety feelings but does have underlying history. Results Lab / Micro Data Result Diagrams: 07/20/22 02:44 07/20/22 02:44 Labs: Laboratory Results - last 24 hr 07/20/22 02:44: WBC 19.5 H, RBC 4.73, Hgb 14.7, Hct 43.9, MCV 92.8, MCH 31.1, MCHC 33.5, RDW Std Deviation 44.0 H, RDW Coeff of Francisca 12.9, Plt Count 268, MPV 10.8, Immature Gran % (Auto) 1.200 H, Neut % (Auto) 71.5 H, Lymph % (Auto) 15.3 L, Bee % (Auto) 9.0, Eos % (Auto) 2.4, Baso % (Auto) 0.6, Absolute Neuts (auto) 14.0 H, Absolute Lymphs (auto) 2.99, Nucleated RBC % 0, Diff Path Review March07/20/22 02:44: PT 13.2, INR 1.0, APTT 28.1 07/20/22 02:44: Sodium 138, Potassium 3.8, Chloride 106, Carbon Dioxide 25.0, Anion Gap 7, BUN 13, Creatinine 0.91, Estim Creat Clear Calc 108.03, Est GFR (MDRD) Af Amer 116, Est GFR (MDRD) Non-Af 95, BUN/Creatinine Ratio 14.3, Glucose 127 H, Calcium 8.8, Troponin I High Sens 5 07/20/22 03:18: POC Glucose 137 H Rhythm Strip Rhythm Strip: Sinus Rhythm Rate: 65 Ectopy: None Radiology Impression Brain CT 07/20/22 03:14 IMPRESSION: No intracranial hemorrhage. Small area of low attenuation which probably represents old ischemia right insular cortex. A subacute infarction cannot be entirely excluded. Old bilateral basal ganglia lacunar infarctions. N.B. : The above Results were Read Back by Darwin Irizarry MD to Jason Bryant MD, and understanding confirmed on 07/20/2022 03:50:52 (ET). Electronically Signed: Darwin Irizarry MD at 4:00 EDT Reading Location ID and State: [phone] / , Service support , ADDENDUM: 07/20/22 0407 IMPRESSION: No intracranial hemorrhage. Small area of low attenuation which probably represents old ischemia right insular cortex. A subacute infarction cannot be entirely excluded. Old bilateral basal ganglia lacunar infarctions. N.B. : The above Results were Read Back by Darwin Irizarry MD to Jason Bryant MD, and understanding confirmed on 07/20/2022 03:50:52 (ET). Electronically Signed: Darwin Irizarry MD at 4:00 EDT Reading Location ID and State: [phone] / , Service support , Head/Neck CTA 07/20/22 03:14 IMPRESSION: Normal CTA Head and neck with contrast. Electronically Signed: Darwin Irizarry MD at 4:09 EDT Reading Location ID and State: [id number] / , Service support , Assessment & Plan Assessment/Plan (1) CVA (cerebral vascular accident): (2) Chest pain: PLAN: Plan The patient is a 46 y/o M w/ PMHx: Anxiety and Depression, GERD, Tobacco use, Obesity, Hx VTE (DVT), Hx TIA 2013 non-compliant with daily ASA therapy who presents to the [facility] ED on 07/20/22 with history of onset while at work at ~ 2 am while attempting to lift items, sudden onset L sided weakness and paresthesias with immediately onset following chest discomfort, noted to be severe, pressure-like sensation rated 10 out of 10 with associated dyspnea, diaphoresis, nausea without emesis with EMS call who administered NG with onset headache following w/ ongoing L sided weakness/paresthesias upon ED evaluation. #1. Left upper extremity weakness, paresthesias concerning for CVA with history of prior TIA: Patient was administered tPA in the ED. Will admit to the ICU per protocol, request medical laboratory manager consultation, request neurology consultation, will obtain MRI Brain, obtain echocardiogram, PT/OT/Speech/Nutrition evaluation per protocol. Will consult Neurology for evaluation. Will allow permissive HTN with as needed agents especially given tPA administration, plan to initiate antiplatelet therapy once follow-up CT head in 24 hours with no acute intracranial findings, placed on high-dose statin w/ AM FLP, fall precautions. FLP in AM. Magnesium level pending. TSH pending. Hemoglobin A1c pending. However of note from review of external medication source patient had been prescribed 12/09/2021 metformin 500 mg p.o. twice daily by his primary care physician thus suspected underlying at least prediabetes. UDS requested per Neurology recommendation. #2. Chest Pain: EKG in ED with SR without acute evidence of ischemia, CTPA with no acute evidence PE or dissection, initial trop 5. Will place on a monitored bed to assure no acute myocardial infarction with serial cardiac enzymes once allowed following TPA administration lab enforced holiday and EKGs. Magnesium level pending. FLP in AM. Given attempt for permissive hypertension we will hold on usage of nitroglycerin. Plan to initiate antiplatelet therapy once repeat CT head demonstrates no acute intracranial findings 24 hours from tPA administration. Echo requested as noted above. Pending evaluation of #1 may consider further work-up for chest discomfort. #3. Elevated BP without hypertensive diagnosis: Patient from review of records into the past has had several visits with elevated blood pressures above baseline however there are several with normal range as well, current presentation with BP above goal however given #1 we will maintain permissive hypertension with as needed agents per stroke protocol. #4. Leukocytosis, unclear etiology: Admission CBC with WBC 19.5 with notable left shift, unclear specific etiology, CTPA with no acute evidence of PE or dissection nor any acute cardiopulmonary findings, will request UA/UCx. Procalcitonin requested. #5. Transient Hypoxia: Unclear specific etiology, CTPA with no acute evidence of PE or dissection, denies history with prior remote testing but certainly potential AUSTEN underlying etiology thus will maintain on continuous pulse oximeter. Following initial 91% improved and remained 97-98% on RA. #6. Suspected Diabetes mellitus type II versus Prediabetes: From outside medication evaluation patient had been prescribed 12/09/2021 metformin 500 mg p.o. twice daily by his primary care physician however this from records has not been refilled since. Admission glucose 127. Hemoglobin A1c pending. Will maintain in the interim on ADA diet, Accu-Cheks with insulin sliding scale with nutrition consultation. #7. Anxiety and depression: Patient had previously been on regimen, encourage continued follow-up with counseling and medications if appropriate. #8. Tobacco Abuse: Encouraged cessation, inpatient consultation per RT, NR if desired. #9. Obesity: Weight loss and lifestyle changes encouraged. #10. History DVT: Given acute presentation #1 with usage of tPA will defer any chemoprophylaxis at this time #11. GERD: We will maintain on PPI. #12. DVT prophylaxis: SCDs, hold chemoprophylaxis given tPA administration, initiate once repeat CT head with no acute intracranial findings. Charges/Coding Visit Charges Inpatient E&M: 26229 Init Hosp L3
[2022-07-20 04:44] LABS: Color, Urine Yellow (Yellow); Glucose, Dipstick Normal (Normal); Ketone-Dipstick Negative (Negative); Leukocyte Esterase-Dipstick Negative /ul (Negative); Nitrite-Dipstick Negative (Negative); Occult Blood-Urine 25 /ul (Negative); Protein-Dipstick 15 mg/dl (Negative); Specific Gravity, Urine 1.015 (1.002-1.030); Squamous Epithelial Cells - UA 0 SEEN /hpf (0-5); Urine Bilirubin Dipstick Negative (Negative); Urine Clarity Clear (Clear); Urine Urobilinogen Normal (Normal); Urine pH 6.5 (5.0 - 8.0); White Blood Cells 0 SEEN /hpf (0-5)
[2022-07-20 04:45] LABS: Thyroid Stim Hormone (TSH) 1.13 uIU/mL (0.358-3.74)
[2022-07-20 04:51] LABS: Bacteria RARE /hpf (None Seen); Mucous, Urine RARE /hpf (<or=2+); Red Blood Cells-Urine 0-5 SEEN /hpf (0-5)
[2022-07-20] MEDS: Acetaminophen 325 MG Tablet 650 MG PO ×3 (05:07→22:51)
[2022-07-20] MEDS: Ondansetron 4 MG/2 ML Vial IV ×2 (05:08→11:23)
[2022-07-20 05:26] LABS: Amphetamine Urine VISTA NEGATIVE (<1000 ng/mL); Barbiturate Urine VISTA NEGATIVE (< 200 ng/mL); Benzodiazepine Urine VISTA NEGATIVE (< 200 ng/mL); Cocaine Urine VISTA NEGATIVE (< 300 ng/mL); Ecstacy Urine VISTA NEGATIVE (< 500 ng/mL); Methadone Urine VISTA NEGATIVE (< 300 ng/mL); PCP Urine VISTA NEGATIVE (< 25 ng/mL); THC Urine VISTA NEGATIVE (< 50 ng/mL); Vista UDS pH Range 5
--- NOTE | 2022-07-20 05:41 | ECHOCS_ITS ---
Reason For Study: CVA Procedure This was a 2D Doppler, Color Flow transthoracic echocardiogram. The study was technically difficult. PT was scanned in supine position, refused to lie in left lateral position for imaging. Contrast injection was performed. Exam performed portable in ICU/CCU. Left Ventricle Based upon the 2D echocardiographic and contrast enhanced images obtained there appears to be grossly normal left ventricular size, wall motion, and systolic function. The estimated ejection fraction is 55 %. No evidence for diastolic dysfunction. Right Ventricle Based upon the 2D echocardiographic images obtained there appears to be grossly normal right ventricular size and systolic function. Atria Normal left atrium. Normal right atrium. No doppler evidence for ASD. Bubble contrast study negative for right to left interatrial shunt. Mitral Valve There is no mitral annular calcification. Normal mitral valve. Trivial mitral valve insufficiency. Tricuspid Valve Normal tricuspid valve. Aortic Valve The aortic valve is not well visualized. Pulmonic Valve The pulmonic valve is not well visualized. Great Vessels The aortic root is not well visualized. Pericardium/Pleural No pericardial effusion. Medication Performed a rapid injection of agitated mix of 9 cc saline and 1cc air to assess for atrial septal defect. Diluted definity 4.0ml given slow IV push to enhance endocardial definition. MMode/2D Measurements & Calculations RVDd: 2.8 cm LAV(MOD-bp): 64.0 ml LA A4 area: 20.8 cm2 LAV(MOD-bp) Indexed: 26.7 ml/m2 LAV(MOD-sp2): 58.2 ml LAV(MOD-sp4): 68.5 ml RA A4 area: 13.3 cm2 Time Measurements MV dec time: 0.21 sec Doppler Measurements & Calculations MV E max gilbert: 90.5 cm/sec Lat Peak E' Gilbert: 18.3 cm/sec Med Peak E' Gilbert: 14.0 cm/sec MV A max gilbert: 46.3 cm/sec E/E' lat: 4.9 E/E' med: 6.5 MV E/A: 2.0 MV V2 max: 95.5 cm/sec Ao V2 max: 149.8 cm/sec MV max P.7 mmHg MV dec slope: 441.5 cm/sec2 Ao max P.0 mmHg MV V2 mean: 41.7 cm/sec Ao V2 mean: 106.1 cm/sec MV mean P.90 mmHg Ao mean P.0 mmHg MV V2 VTI: 28.2 cm Ao V2 VTI: 32.7 cm LV V1 max: 105.4 cm/sec PA V2 max: 110.1 cm/sec LV V1 max P.4 mmHg LV V1 mean P.0 mmHg LV V1 mean: 67.0 cm/sec LV V1 VTI: 21.0 cm ECHO/Echo Complete W/ Contrast Interpretation Summary The study was technically difficult. Contrast injection was performed. Based upon the 2D echocardiographic and contrast enhanced images obtained there appears to be grossly normal left ventricular size, wall motion, and systolic function. The estimated ejection fraction is 55 %. Trivial mitral valve insufficiency. The aortic root is not well visualized. No evidence for diastolic dysfunction. Bubble contrast study negative for right to left interatrial shunt. Ordering Physician: Elza Kan Referring Physician: Annette Jackson Performed By: Myrtle Delcid, JOHNATHAN, RVT
[2022-07-20] MEDS: 0.9% Normal Saline 1,000 ML 100 ML IV (06:13)
[2022-07-20 06:45] LABS: Cholesterol 223 mg/dL (200); High Density Lipoprotein 33 mg/dL; Triglycerides 128 mg/dL; Very Low Density Lipoprotein 26 mg/dL (5-40)
--- NOTE | 2022-07-20 07:18 | EX.PCM.CONCC ---
Assessment & Plan Assessment/Plan (1) Obesity (BMI 30-39.9): (2) Tobacco dependence: (3) Left leg numbness: PLAN: Plan RECOMMENDATIONS: 1. Continue post tPA protocol 2. Therapies as ordered 3. Anticipate neurology consultation after 24 hours 4. As needed blood pressure control. Cannot exclude nicardipine drip 5. Await hemoglobin A1c IMPRESSIONS: 1. Left-sided weakness and paresthesia with history of TIA Clinical concern for acute CVA. Patient evaluated by neurology who recommended tPA. Patient appears to be tolerating this well for now. Patient will need to have 24 hours of monitoring and post tPA protocol in the intensive care unit. Patient's blood pressures have been trending up. Cannot exclude the need for initiation of nicardipine drip. Patient does appear to have hypertension at baseline with elevated triglycerides. Telemetry to be continue to evaluate for arrhythmia 2. Chest pain/hypertension EKG shows no acute evidence of ischemia. Initial troponin of 5. Likely initiate antiplatelet therapy once 24 hours has elapsed and no intracranial complications are noted. Echocardiogram was ordered and evaluation of problem #1. Clinical suspicion for elevated BP at baseline. Patient not on any antihypertensives at this time. Will use as needed in the acute phase given tPA, but cannot exclude the need for initiation of medications prior to discharge. 3. Transient hypoxia Unclear etiology. Saturations have been doing well on room air. Patient is a non-smoker. Patient would likely benefit from outpatient complete pulmonary function test for quantification clarification of lung function. This, but no infiltrates are appreciated on CT of the chest. Patient also has no evidence of dissection or PE. Did encourage smoking cessation. 4. Obesity/anxiety/depression/tobacco abuse/history of TIA/history of DVT/GERD Complicates care, management, recovery and prognosis. Patient will likely need to be placed on Lovenox once tPA window is closed. Encourage smoking cessation. No PE is noted. Patient does not have swelling of the lower extremities to suggest DVT. D-dimer likely of low utility given tPA. HPI Consult Data Date of Consult: 07/20/22 HPI Narrative Reason for Consultation: CVA HPI Narrative: IRASEMA CUTLER is a 46 M, with past medical history listed below, who presents to [facility] on 07/20/2022 secondary to acute onset of chest pain. Patient described this as 10 out of 10 and sudden in onset. Patient reportedly was unlocking a padlock when it happened. Patient had reported that he had paresthesia and weakness of left leg and had fallen. EMS was called and patient was given nitroglycerin and brought to the emergency department. Patient reportedly did have a history of a TIA in 2013 and is supposed to be an aspirin daily, but denies taking it. Patient is an active tobacco user. In the ER, patient was afebrile and hypertensive at 162/67. Patient was saturating well on room air at 96%, but tachypneic at 22 breaths/min. An NIH was performed and he received 1.4 motor left arm, 2 points for motor left leg and one-point for sensory with a total NIH of 4. Laboratory data showed a white blood cell count of 19.5, hemoglobin of 14.7 and platelets of 268. Coagulation studies and chemistries were unremarkable. Multiple CTs were completed and personally reviewed. CT of the head was unremarkable except for old bilateral basal ganglia lacunar infarcts. CTA of the chest was unremarkable except for coronary artery calcifications and a CTA of the head and neck was unremarkable. Telestroke was consulted and patient was given tPA and transferred to the intensive care unit for further evaluation. Since being in the intensive care unit, patient reports his lower extremity is slightly improved compared to previous. Patient previously had no sensation and now reports [id number]. Patient has not had any bleeding complications reported. Patient is not reporting any recent trauma, but did sprain his wrist 3 weeks ago. Patient has been going through therapy. No bleeding has been reported. Patient does report that he does not follow with his PCP on a regular basis. Patient does not check his blood pressures routinely. Patient denies any illicit drug use or alcohol. Patient reports he was of his usual health yesterday. Patient has not had pain like this previously. Patient reportedly has never had a cardiac work-up in the last 5 years. Review of systems otherwise negative from a constitutional, HEENT, respiratory, cardiovascular, GI, genitourinary, musculoskeletal, skin, neurologic, psychiatric and hematologic system unless stated above. FORMERLY [facility], 1928–1983 Medical History Anxiety disorder DVT (deep venous thrombosis) GERD (gastroesophageal reflux disease) Obesity (BMI 30-39.9) Smoker TIA (transient ischemic attack) Tobacco dependence Vitamin D deficiency Home Medications omeprazole 20 mg capsule,delayed release 20 mg PO DAILY 12/28/14 [History Last Taken 11/08/16] Vitamin D3 5,000 iu PO BID Vitamin D deficiency 01/17/16 [History Last Taken 11/08/16] Allergy/AdvReac Type Severity Reaction Status Date / Time cortisone Allergy Shortness Verified 07/20/22 03:02 of breath Family History Father Heart disease Diabetes Family History other Surgical History History of ankle surgery History of removal of cyst Hx of arthrodesis Social History household members: significant other Smoking Status: Current every day smoker tobacco type: cigarettes alcohol intake: current alcohol intake frequency: a few times a month substance use type: does not use ROS ROS Narrative See HPI Physical Exam Const alert and oriented x3 General Appearance: cooperative HEENT normocephalic and head/scalp atraumatic HEENT Narrative: No facial droop Eyes PERRL, EOMs intact bilaterally and conjunctivae normal Neck full ROM and no lymphadenopathy Lymph Lymphatic: no lymphadenopathy noted Chest inspection of chest normal Resp normal respiratory effort and no use of accessory muscles Effort and Inspection: able to speak in complete sentences; Negative for actively coughing or uses accessory muscles Auscultation: clear to auscultation bilaterally; Negative for rales, rhonchi or wheezes Cardio regular rate, regular rhythm, S1 normal heart sound, S2 normal heart sound, no murmurs, no rub and no gallops GI normal to inspection, nondistended, normoactive bowel sounds no CVA tenderness Extremity no clubbing, cyanosis or edema Skin no rashes or lesions noted Neuro oriented x3 and CN's II-XII intact bilaterally Neuro Narrative: Decreased sensation on Left. No dysarthria. Left-sided weakness. Psych cooperative and affect normal Lab / Micro Data Result Diagrams: 07/20/22 02:44 07/20/22 02:44 Labs: Laboratory Results - last 24 hr 07/20/22 02:44: WBC 19.5 H, RBC 4.73, Hgb 14.7, Hct 43.9, MCV 92.8, MCH 31.1, MCHC 33.5, RDW Std Deviation 44.0 H, RDW Coeff of Francisca 12.9, Plt Count 268, MPV 10.8, Immature Gran % (Auto) 1.200 H, Neut % (Auto) 71.5 H, Lymph % (Auto) 15.3 L, [place] % (Auto) 9.0, Eos % (Auto) 2.4, Baso % (Auto) 0.6, Absolute Neuts (auto) 14.0 H, Absolute Lymphs (auto) 2.99, Nucleated RBC % 0, Diff Path Review March foll 07/20/22 02:44: PT 13.2, INR 1.0, APTT 28.1 07/20/22 02:44: Sodium 138, Potassium 3.8, Chloride 106, Carbon Dioxide 25.0, Anion Gap 7, BUN 13, Creatinine 0.91, Estim Creat Clear Calc 108.03, Est GFR (MDRD) Af Amer 116, Est GFR (MDRD) Non-Af 95, BUN/Creatinine Ratio 14.3, Glucose 127 H, Calcium 8.8, Troponin I High Sens 5 07/20/22 02:44: Magnesium 2.0, TSH 1.13 07/20/22 02:44: Triglycerides 128, Cholesterol 223 H, LDL Cholesterol 164 H, VLDL Cholesterol 26, HDL Cholesterol 33 L 07/20/22 03:18: POC Glucose 137 H 07/20/22 04:38: Urine Opiates Screen NEGATIVE, Urine Methadone Screen NEGATIVE, Ur Barbiturates Screen NEGATIVE, Ur Phencyclidine Scrn NEGATIVE, Ur Amphetamines Screen NEGATIVE, MDMA (Ecstasy) Screen NEGATIVE, U Benzodiazepines Scrn NEGATIVE, Urine Cocaine Screen NEGATIVE, U Cannabinoids Screen NEGATIVE, Ur Drug Screen Comment 07/20/22 04:38: Urine Color Yellow, Urine Clarity Clear, Urine pH 6.5, Ur Specific [place] 1.015, Urine Protein 15 H, Urine Glucose (UA) Normal, Urine Ketones Negative, Urine Occult Blood 25 H, Urine Nitrite Negative, Urine Bilirubin Negative, Urine Urobilinogen Normal, Ur Leukocyte Esterase Negative, Urine RBC 0-5 SEEN, Urine WBC 0 SEEN, Ur Squamous Epith Cells 0 SEEN, Urine Bacteria RARE, Urine Mucus RARE Micro: Microbiology 07/20/22 04:21 Nasal Secretion SARS-CoV-2 Antigen (Rapid) - Final Rhythm Strip Rhythm Strip: Sinus Rhythm Rate: 65 Ectopy: None Radiology Impression Brain CT 07/20/22 03:14 IMPRESSION: No intracranial hemorrhage. Small area of low attenuation which probably represents old ischemia right insular cortex. A subacute infarction cannot be entirely excluded. Old bilateral basal ganglia lacunar infarctions. N.B. : The above Results were Read Back by Darwin Irizarry MD to Jason Bryant MD, and understanding confirmed on 07/20/2022 03:50:52 (ET). Electronically Signed: Darwin Irizarry MD at 4:00 EDT Reading Location ID and State: [place] Esqu[place] MD , Service support , ADDENDUM: 07/20/22 0407 IMPRESSION: No intracranial hemorrhage. Small area of low attenuation which probably represents old ischemia right insular cortex. A subacute infarction cannot be entirely excluded. Old bilateral basal ganglia lacunar infarctions. N.B. : The above Results were Read Back by Darwin Irizarry MD to Jason Bryant MD, and understanding confirmed on 07/20/2022 03:50:52 (ET). Electronically Signed: Darwin Irizarry MD at 4:00 EDT Reading Location ID and State: [place] Es[place] MD , Service support , Chest CTA 07/20/22 03:14 IMPRESSION: No pulmonary embolus or thoracic aortic dissection. Coronary artery calcifications versus artifact. Cholelithiasis. Electronically Signed: Darwin Irizarry MD at 4:38 EDT Reading Location ID and State: [place] Es[place] MD , Service support , Head/Neck CTA 07/20/22 03:14 IMPRESSION: Normal CTA Head and neck with contrast. Electronically Signed: Darwin Irizarry MD at 4:09 EDT Reading Location ID and State: [place] MD , Service support , ADDENDUM: 07/20/22 0445 IMPRESSION: Normal CTA Head and neck with contrast. N.B. : , AA, confirmed on 07/20/2022 04:38:37 (ET) that the referring physician received the results and does not require a verbal communication. Electronically Signed: Darwin Irizarry MD at 4:09 EDT Reading Location ID and State: [place] / , Service support , Chest X-Ray 07/20/22 04:10 IMPRESSION: No acute cardiopulmonary disease. Electronically Signed: Darwin Irizarry MD at 4:43 EDT Reading Location ID and State: [place] / , Service support , Charges/Coding Visit Charges Inpatient E&M: 17678 Init Hosp L3
[2022-07-20 07:20] LABS: Hemoglobin A1c 5.5 % (3.8-5.6)
[2022-07-20 08:00] LABS: Bedside Glucose 149 mg/dL (74-106)
[2022-07-20] MEDS: Pantoprazole Sodium 20 MG Tablet PO (08:15)
[2022-07-20 11:25] LABS: Bedside Glucose 148 mg/dL (74-106)
--- NOTE | 2022-07-20 11:50 | CASEMGMT ---
LIV CHAUDHARI Face to Face with patient for initial transition planning/care coordination assessment. RN CM introduced self and role at [facility]. Patient lying in bed, alert and oriented, significant other at bedside. Patient willing to participate in assessment and is able to answer all questions appropriately. Care providers, pharmacy, and demographics verified. Patient wishes to discharge home. Patient has been on bedrest, will monitor patient's activity and need for outpatient therapy vs HHC. Patient states he has no further needs or concerns at this time. CM to follow for discharge planning needs that may arise. PCP: Renetta Specialists: none Preferred Pharmacy: [facility]; [facility] retail at discharge Insurance: MMO Prescription Benefit: yes Living Will/HPOA: yes, significant other LNOK: significant other Living Arrangements: Patient lives with significant other in a 2 story home with bed and bath on first floor. 2 steps and no railing to enter. Patient states he was independent at home prior to hospitalization. Transportation: self, DME/HHC: Patient denies DME in the home. No previous HHC or SNF. Disposition Plan: Patient to discharge home with family support and follow-up plans in place. Will follow for outpatient therapy vs HHC. Christine FLORES, RN, CM
[2022-07-20 13:54] LABS: Procalcitonin < 0.04 ng/mL (0.00-0.09)
[2022-07-20 16:15] LABS: Bedside Glucose 106 mg/dL (74-106)
[2022-07-20] MEDS: Atorvastatin Calcium 80 MG Tablet PO (20:53)
[2022-07-20] MEDS: Labetalol (Prefilled) 20 MG/4 ML IV (21:09)
[2022-07-20] MEDS: 0.9% Saline Lock 10 ML Syringe IV (21:10)
[2022-07-20 21:16] LABS: Bedside Glucose 98 mg/dL (74-106)
[2022-07-21] VITALS (24 sets, daily range): BP systolic 108–159; BP diastolic 64–97; PULSE 63–90; RESP 14–26; TEMP 35.8–36.6; O2SAT 91–99; BMI 37.8
--- NOTE | 2022-07-21 04:00 | CT_ITS ---
We are attempting to reach an attending provider to discuss findings. An addendum with communication details will be sent when the communication is complete. EXAM: CT HEAD WITHOUT INTRAVENOUS CONTRAST CLINICAL INDICATION: TPA administration [address] head TECHNIQUE: Multiple axial images were obtained of the head without intravenous contrast. CTDIvol = ( 44 ) mGy, DLP = ( 914 ) mGycm This CT exam was performed using one or more of the following dose reduction techniques: automated exposure control, adjustment of the mA and/or kV according to patient size, and/or use of iterative reconstruction technique. This report was created using Mevvy report Fromlab technology. COMPARISON: 07/20/2022 CT FINDINGS: BRAIN AND EXTRA-AXIAL SPACES: Unremarkable. No intra- or extra-axial hemorrhage. No evidence of acute infarct. No intracranial mass or mass effect. There is preservation of the mendez/white matter interface. Posterior fossa structures are unremarkable. Ventricles are appropriate for age. No hydrocephalus. Basal cisterns are patent. BONES/JOINTS: Unremarkable. No discrete lytic or blastic abnormalities. SINUSES: Unremarkable as visualized. Clear. MASTOID AIR CELLS: Unremarkable. Clear. ORBITS: Visualized globes, extraocular muscles, optic nerves and retrobulbar fat appear unremarkable. CT/STROKE Brain/Head without Cont IMPRESSION: Negative head/brain CT without intravenous contrast. Stroke ASPECTS score 10. Electronically Signed: Tomasz Harrell MD at 4:17 EDT ,
[2022-07-21 04:47] LABS: Absolute Neutrophil Count 9.9 X10^3/uL (2.0-7.7); Basophil# 0.11 X10^3/uL; Basophil% 0.8 % (0-1); Eosinophil# 0.65 X10^3/uL; Eosinophils% 4.5 % (0-5); Hematocrit 44.4 % (40-54); Hemoglobin 14.6 g/dL (13.0-16.5); Lymphocyte % 16.7 % (19-41); Mean Corp Hgb Conc 32.9 g/dL (32-36); Mean Corpuscular Hgb 30.7 pg (27.0-32.0); Mean Corpuscular Volume 93.5 fL (80-94); Mean Platelet Vol. 9.9 fl (6.2-12.0); Monocyte# 1.18 X10^3/uL; Monocyte% 8.2 % (0-10); NRBC Flagged by Analyzer 0 % (0-5); Neutrophil # 9.89 X10^3/uL (2.7-7.7); Neutrophil % 68.9 % (47-70); Platelet Count 219 K/mm3 (150-450); RBC Distribution Width CV 12.9 % (11.6-14.6); RBC Distribution Width SD 44.5 fl (35.1-43.9); Red Blood Count 4.75 M/mm3 (4.6-6.2); White Blood Count 14.4 K/mm3 (4.4-11.0)
[2022-07-21 05:12] LABS: ALB/GLOB Ratio 0.7 RATIO (0.9-2.4); AST(SGOT) 12 U/L (15-37); Alanine Aminotransfer ALT/SGPT 25 U/L (16-61); Albumin, Serum 2.9 g/dL (3.2-5.0); Alkaline Phosphatase 63 U/L (45-117); Anion Gap 6 (5-15); BUN 9 mg/dL (7-18); BUN/Creat Ratio 10.1 RATIO (10-20); Calcium,Total 8.6 mg/dL (8.5-10.1); Chloride 104 mmol/L (98-107); Creatinine, Serum 0.89 mg/dL (0.70-1.30); EST Glomerular Filtration Rate 97 mL/min (>60); Est Glom Filt Rate - Afr Amer 117 mL/min (>60); Estimated Creatinine Clearance 110.46 ml/min; Globulin 4.4 g/dL (2.2-4.2); Glucose 148 mg/dL (74-106); Potassium 3.9 mmol/L (3.5-5.1); Protein, Total 7.3 g/dL (6.4-8.2); Sodium Level 136 mmol/L (136-145)
[2022-07-21] MEDS: 0.9% Saline Lock 10 ML Syringe IV (05:56)
--- NOTE | 2022-07-21 06:31 | PN.CC_ITS ---
Assessment & Plan Assessment/Plan (1) Obesity (BMI 30-39.9): (2) Tobacco dependence: (3) Left leg numbness: PLAN: Plan RECOMMENDATIONS: 1. Await MRI 2. Therapies as ordered 3. Okay to obtain neurology consultation 4. Consider initiation of JENIFER inhibitor 5. Statin and aspirin have been ordered. IMPRESSIONS: 1. Left-sided weakness and paresthesia with history of TIA Resolved. Clinical concern for acute CVA. Patient evaluated by neurology who recommended tPA. Patient appears to have tolerated tPA well with a current NIH of 0. Clinical suspicion that global weakness is secondary to decreased mobility over the last 24 hours. Therapy to evaluate today. 2. Chest pain/hypertension EKG shows no acute evidence of ischemia. Initial troponin of 5. Likely initiate antiplatelet therapy once 24 hours has elapsed and no intracranial complications are noted. Echocardiogram was ordered and evaluation of problem #1. Clinical suspicion for elevated BP at baseline. Patient likely should be initiated on an JENIFER inhibitor or beta-sonia. Defer to hospitalist. 3. Transient hypoxia Unclear etiology. No recurrence has been noted. Saturations have been doing well on room air. Patient is a non-smoker. Patient would likely benefit from outpatient complete pulmonary function test for quantification clarification of lung function. This, but no infiltrates are appreciated on CT of the chest. Patient also has no evidence of dissection or PE. Did encourage smoking cessation. 4. Obesity/anxiety/depression/tobacco abuse/history of TIA/history of DVT/GERD Complicates care, management, recovery and prognosis. Okay to initiate Lovenox from my perspective. Encourage smoking cessation. No PE is noted. Patient does not have swelling of the lower extremities to suggest DVT. D-dimer likely of low utility given tPA. Subjective Subjective Patient did okay overnight. No acute issues were reported. Patient did have a CT scan early this morning showing no acute bleed. Patient is reporting global weakness, but NIH is 0. Patient tolerating p.o. well. Patient did require 1 as needed dose of antihypertensives overnight. Objective Data Objective Data Vital Signs: Vital Signs Temp Pulse Resp BP Pulse Ox O2 Del Method 35.9 C L 68 20 H 139/79 H 95 Room Air 07/21/22 04:00 07/21/22 06:00 07/21/22 06:00 07/21/22 06:00 07/21/22 05:40 07/21/22 06:00 Oxygen Delivery Method Room Air Weight: 123.4 kg Body Mass Index (BMI) 37.8 Intake & Output: Intake and Output for Last 24 Hours 07/19/22 07/20/22 07/21/22 23:59 23:59 23:59 Intake Total / Output Total 2600 / 2600 200 / 200 Balance -584.00 / -584.00 -200 / -200 Lab / Micro Data Attestation: I reviewed the patient's lab results. Result Diagrams: 07/21/22 04:40 07/21/22 04:40 Labs: Laboratory Results - last 24 hr 07/20/22 02:44: Hemoglobin A1c 5.5 07/20/22 02:44: Triglycerides 128, Cholesterol 223 H, LDL Cholesterol 164 H, VLDL Cholesterol 26, HDL Cholesterol 33 L 07/20/22 05:03: Procalcitonin < 0.04 07/20/22 07:41: POC Glucose 149 H 07/20/22 11:03: POC Glucose 148 H 07/20/22 15:54: POC Glucose 106 07/20/22 20:50: POC Glucose 98 07/21/22 04:40: WBC 14.4 H, RBC 4.75, Hgb 14.6, Hct 44.4, MCV 93.5, MCH 30.7, MCHC 32.9, RDW Std Deviation 44.5 H, RDW Coeff of Francisca 12.9, Plt Count 219, MPV 9.9, Immature Gran % (Auto) 0.900, Neut % (Auto) 68.9, Lymph % (Auto) 16.7 L, [place] % (Auto) 8.2, Eos % (Auto) 4.5, Baso % (Auto) 0.8, Absolute Neuts (auto) 9.9 H, Absolute Lymphs (auto) 2.40, Nucleated RBC % 0 07/21/22 04:40: Sodium 136, Potassium 3.9, Chloride 104, Carbon Dioxide 26.0, Anion Gap 6, BUN 9, Creatinine 0.89, Estim Creat Clear Calc 110.46, Est GFR (MDRD) Af Amer 117, Est GFR (MDRD) Non-Af 97, BUN/Creatinine Ratio 10.1, Glucose 148 H, Calcium 8.6, Total Bilirubin 0.40, AST 12 L, ALT 25, Alkaline Phosphatase 63, Total Protein 7.3, Albumin 2.9 L, Globulin 4.4 H, Albumin/Globulin Ratio 0.7 L Micro: Microbiology 07/20/22 04:21 Nasal Secretion SARS-CoV-2 Antigen (Rapid) - Final Radiography Diagnostic Testing: Radiology Impression Echocardiogram 07/20/22 05:41 Interpretation Summary The study was technically difficult. Contrast injection was performed. Based upon the 2D echocardiographic and contrast enhanced images obtained there appears to be grossly normal left ventricular size, wall motion, and systolic function. The estimated ejection fraction is 55 %. Trivial mitral valve insufficiency. The aortic root is not well visualized. No evidence for diastolic dysfunction. Bubble contrast study negative for right to left interatrial shunt. Ordering Physician: Elza Kan Referring Physician: Annette Jackson Performed By: Myrtle Delcid, RDCS, RVT Brain CT 07/21/22 04:00 IMPRESSION: Negative head/brain CT without intravenous contrast. Stroke ASPECTS score 10. Electronically Signed: Tomasz Harrell MD at 4:17 EDT Reading Location ID and State: [facility] / [place] Tel , Service support , ADDENDUM: 07/21/22444 IMPRESSION: undefined ADDENDUM: 07/21/22446 IMPRESSION: undefined Rhythm Strip Rhythm Strip: Sinus Rhythm Rate: 65 Ectopy: None Physical Exam Const alert and oriented x3 General Appearance: cooperative HEENT normocephalic and head/scalp atraumatic Eyes PERRL, EOMs intact bilaterally and conjunctivae normal Neck full ROM and no lymphadenopathy Lymph Lymphatic: no lymphadenopathy noted Chest inspection of chest normal Resp normal respiratory effort and no use of accessory muscles Effort and Inspection: able to speak in complete sentences; Negative for actively coughing or uses accessory muscles Auscultation: clear to auscultation bilaterally; Negative for rales, rhonchi or wheezes Cardio regular rate, regular rhythm, S1 normal heart sound, S2 normal heart sound, no murmurs, no rub and no gallops GI normal to inspection, nondistended, normoactive bowel sounds no CVA tenderness Extremity no clubbing, cyanosis or edema Skin no rashes or lesions noted Neuro oriented x3, CN's II-XII intact bilaterally, moves all extremities and no focal motor deficits Psych cooperative and affect normal Charges/Coding Visit Charges Inpatient E&M: 95826 Subs Hosp L2
--- NOTE | 2022-07-21 08:50 | TELEMED_ITS ---
[facility] Telemed has confirmed receipt of a request for visit. This document confirms receipt of the order initiating the consult. To find the results of the consultation, please view the patient's reports for the scanned Telemed Consult.
[2022-07-21 08:58] LABS: Pathologist Review Reviewed
[2022-07-21 09:00] LABS: Bedside Glucose 115 mg/dL (74-106)
--- NOTE | 2022-07-21 09:00 | MRI_ITS ---
STUDY: MRI BRAIN WITHOUT CONTRAST REASON FOR EXAM: Male, 46 years old. CVA -- MRI 24 hours after IV alteplase TECHNIQUE: Standardized multiplanar fat and water weighted pulse sequences were obtained. COMPARISON: Head CT dated July 21, 2022 FINDINGS: There is mild cerebral atrophy with widening of the extra-axial spaces and ventricular dilatation. There are multiple white matter hyperintensities, distributed throughout the deep white matter tracts of the cerebral hemispheres, consistent with mild to moderate chronic white matter ischemic changes. There is no evidence for recent intracranial ischemia or other cause of cytotoxic edema on diffusion weighted imaging (DWI). Normal T2* images of the brain without demonstrated susceptibility artifact. There is no demonstrated hemosiderin stain. Normal bilateral basal ganglia. Normal thalami. There is no extra-axial fluid accumulation. Normal flow voids within the major intracranial circulation suggesting patency by spin echo criteria. Normal sella turcica, pituitary gland, infundibular stalk, optic chiasm and hypothalamus. Normal tectal plate and pineal gland. Normal midbrain, leilani and medulla. Normal cerebellum. Normal basal cisterns. Normal bilateral temporal bones. Normal bilateral internal auditory canals. No demonstrated orbital abnormality, within the constraints of a routine brain study. Normal visualized paranasal sinuses. Normal calvarium and skull base. Normal visualized soft tissue structures. Normal visualized upper cervical spine. MRI/Brain without Contrast IMPRESSION: 1. Mild to moderate chronic ischemic changes of the brain, as described above. 2. No demonstrated acute infarct or intracranial hemorrhage. Electronically Signed: Agustin Dent MD at 10:34 EDT ,
--- NOTE | 2022-07-21 09:05 | NURSING ---
transferred off floor via [facility], heat treat supervisor for MRI
[2022-07-21] MEDS: Aspirin 81 MG TAB.CHEW PO (10:18)
[2022-07-21] MEDS: Pantoprazole Sodium 20 MG Tablet PO (10:19)
[2022-07-21] MEDS: Lisinopril 10 MG Tablet PO (10:19)
--- NOTE | 2022-07-21 12:22 | DCINST_ITS ---
Discharge Instructions Diet Discharge Diet: Low fat / Low cholesterol Activity Discharge Activity: Return to Normal Activity Dressing / Incision Call your doctor if you observe: Fever of 101 or Higher, Shortness of breath, Dizziness, Fainting spells, Swelling in the ankles, Chest pain and Increased palpitations (irregular heartbeat) Follow Up Care Test Results: Test results from this visit will be discussed in further detail at your follow- up appointment, if applicable. Discharge Plan Admission Admit Date/Time: 07/20/22 04:07 Attending Provider: Abimael Shea Primary Care Provider: Annette Jackson Consulting Providers: Elza Kan ; Shine Cage Discharge Orders/Prescriptions Prescriptions: New aspirin 81 mg Tablet,Chewable 81 mg PO BREAKFAST Qty: 30 0RF atorvastatin 80 mg Tablet 80 mg PO QHS Qty: 30 0RF lisinopril 10 mg Tablet 10 mg PO DAILY Qty: 30 0RF Continued omeprazole 20 MG capsule 20 mg PO DAILY Label Comments: heartburn Vitamin D3 5,000 iu PO BID Label Comments: supplement Referrals / Follow Up: Annette Jackson DO [Primary Care Provider] - Within 1 Week Raffaele Callahan MD [Non-Staff] - Within 1 Month Disposition Disposition (needs filled in before D/C Order can be placed): Home, Self Care
--- NOTE | 2022-07-21 12:25 | PCM.DC.SUM ---
Providers Date of Admission: 07/20/22 Primary Care Physician: Dr. Annette Jackson, Consultations 07/20/22 05:41 Consult: Gum Machine Filler / Pulmonary Medicine Routine Consulting Provider: Shine Cage Reason for Consult: CVA, administered TPA EMERGENT Consult: No MD Notified: Yes Date Notified: 07/20/22 Time Notified: 04:12 Method of Notification: Text Reason For Visit: CVA S/P TPA Diagnosis Discharge Diagnosis (1) Obesity (BMI 30-39.9): Status: Chronic Code(s): E66.9 - Obesity, unspecified (2) Tobacco dependence: Status: Chronic Code(s): F17.200 - Nicotine dependence, unspecified, uncomplicated (3) Left leg numbness: Status: Acute Code(s): R20.0 - Anesthesia of skin Medications at Discharge Home Medications omeprazole 20 mg capsule,delayed release 20 mg PO DAILY 12/28/14 Vitamin D3 5,000 iu PO BID Vitamin D deficiency 01/17/16 aspirin 81 mg chewable tablet 81 mg PO BREAKFAST #30 tabs 07/21/22 atorvastatin 80 mg tablet 80 mg PO QHS #30 tabs 07/21/22 lisinopril 10 mg tablet 10 mg PO DAILY #30 tabs 07/21/22 Hospital Course Operations None Procedures 2-D Echocardiogram Summary of Care Provided Minutes Spent on Discharge: 42 Hospital Course: Per HPI: The patient is a 46 y/o M w/ PMHx: Anxiety and Depression, GERD, Tobacco use, Obesity, Hx VTE (DVT), Hx TIA 2013 non-compliant with daily ASA therapy who presents to the [facility] ED on 07/20/22 with history of onset while at work at ~ 2 am while attempting to lift items, sudden onset L sided weakness and paresthesias with immediately onset following chest discomfort, noted to be severe, pressure-like sensation rated 10 out of 10 with associated dyspnea, diaphoresis, nausea without emesis with EMS call who administered NG with onset headache following w/ ongoing L sided weakness/paresthesias upon ED evaluation. Initial ED NIHSS 5 with 1 for left motor arm, 2 left motor leg, 2 sensory.? Upon ED arrival he notes chest pain notably improved, 1-2/10 in severity with still some mild nausea complaints. Given presentation immediate stroke alert called and patient felt tPA candidate.? 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 In the ED patient initiated on maintenance IV fluids, administer Tylenol 650 mg x 1 and as noted initiated on alteplase. Following onset TPA upon evaluation patient with improved sensation to the LLE, able to lift LLE off bed with drift but it does not hit and LUE also improved. Hospital Course: 1. Left upper extremity and left lower extremity weakness with paresthesias concerning for CVA status post tPA/chest pain/hypertension?46-year-old male with previous medical history that he was noncompliant with medications for presented to the hospital with signs and symptoms concerning for stroke, in the ER CTA of the head and neck was unremarkable as was CT of the brain. He did have a CTA of the chest because of his chest pain which was also unremarkable. MRI was negative the day after presentation however he did have tPA with improvement of his left upper extremity weakness but he still has some left lower extremity weakness requiring a possible walker and physical therapy upon discharge. Chest pain is completely resolved, echo was unremarkable. There is no signs of any IN as his troponins were also unremarkable. He was started on lisinopril because of his elevated blood pressures as well as Lipitor and aspirin. It was made abundantly clear that he needs to be compliant and consistent with these medications and to also quit smoking as he is at higher risk for repeated strokes and heart attacks. I discussed with him the plan for possible discharge today and he expressed understanding of the risk benefits of going home and he would like to go home today. He will need to follow-up with both his PCP as well as neurology as an outpatient for monitoring. 2. Suspected type 2 diabetes, anxiety, depression, GERD, obesity, tobacco abuse are all chronic medical conditions which complicate his care. His home medications were continued where appropriate. It does look like he had been prescribed metformin in the past however he has been noncompliant with this. His BMI is still 37.9 so we had a discussion on weight loss as well. Physical Exam Narrative General: Alert, Oriented x3, Cooperative, No apparent distress HEENT: Atraumatic, PERRLA, EOMI, Normocephalic Oral: Moist Mucosa Neck: Supple, No JVD Lungs: Clear to auscultation, Normal air movement, No rhonchi, No wheeze, No rales Cardiovascular: Regular rate, Regular Rhythm, Normal S1, Normal S2, No murmurs Abdomen: Soft, Non Tender, Non-Distended, No Hepato-splenomegaly Extremities: No edema, Capillary Refill Less than 3 Seconds Skin: No rashes, No breakdown Musculoskeletal: No Tenderness to Palpation of Joints or Extremities Neurological: Cranial nerves II-XII grossly intact, NIH of 0. Sensation is intact. Strength is 4/5 on his left lower extremity otherwise strength is normal Psych/Mental Status: Normal Affect, Appropriate Weight / BMI Weight Weight: 272 lb 0.807 oz Body Mass Index (BMI) 37.8 ABG / Lab / Microbiology Data Result Diagrams: 07/21/22 04:40 07/21/22 04:40 Laboratory: Laboratory Results - last 24 hr 07/20/22 02:44: Diff Path Review Reviewed 07/20/22 05:03: Procalcitonin < 0.04 07/20/22 15:54: POC Glucose 106 07/20/22 20:50: POC Glucose 98 07/21/22 04:40: WBC 14.4 H, RBC 4.75, Hgb 14.6, Hct 44.4, MCV 93.5, MCH 30.7, MCHC 32.9, RDW Std Deviation 44.5 H, RDW Coeff of Francisca 12.9, Plt Count 219, MPV 9.9, Immature Gran % (Auto) 0.900, Neut % (Auto) 68.9, Lymph % (Auto) 16.7 L, Brooke % (Auto) 8.2, Eos % (Auto) 4.5, Baso % (Auto) 0.8, Absolute Neuts (auto) 9.9 H, Absolute Lymphs (auto) 2.40, Nucleated RBC % 0 07/21/22 04:40: Sodium 136, Potassium 3.9, Chloride 104, Carbon Dioxide 26.0, Anion Gap 6, BUN 9, Creatinine 0.89, Estim Creat Clear Calc 110.46, Est GFR (MDRD) Af Amer 117, Est GFR (MDRD) Non-Af 97, BUN/Creatinine Ratio 10.1, Glucose 148 H, Calcium 8.6, Total Bilirubin 0.40, AST 12 L, ALT 25, Alkaline Phosphatase 63, Total Protein 7.3, Albumin 2.9 L, Globulin 4.4 H, Albumin/Globulin Ratio 0.7 L 07/21/22 08:42: POC Glucose 115 H Microbiology: Microbiology 07/20/22 04:21 Nasal Secretion SARS-CoV-2 Antigen (Rapid) - Final Radiography Diagnostic Testing: Radiology Impression Echocardiogram 07/20/22 05:41 Interpretation Summary The study was technically difficult. Contrast injection was performed. Based upon the 2D echocardiographic and contrast enhanced images obtained there appears to be grossly normal left ventricular size, wall motion, and systolic function. The estimated ejection fraction is 55 %. Trivial mitral valve insufficiency. The aortic root is not well visualized. No evidence for diastolic dysfunction. Bubble contrast study negative for right to left interatrial shunt. Ordering Physician: Elza Kan Referring Physician: Annetet Jackson Performed By: Myrtle Delcid, JOHNATHAN, RVT Brain CT 07/21/22 04:00 IMPRESSION: Negative head/brain CT without intravenous contrast. Stroke ASPECTS score 10. Electronically Signed: Tomasz Harrell MD at 4:17 EDT , ADDENDUM: 07/21/22444 IMPRESSION: undefined ADDENDUM: 08/30/22 0447 IMPRESSION: undefined Brain MRI 07/21/22 09:00 IMPRESSION: 1. Mild to moderate chronic ischemic changes of the brain, as described above. 2. No demonstrated acute infarct or intracranial hemorrhage. Electronically Signed: Agustin Dent MD at 10:34 EDT Reading Location ID and State: [address] [place] [address] , Service support , D/C Instructions Discharge Diet: Low fat / Low cholesterol Call your doctor if you observe: Fever of 101 or Higher, Shortness of breath, Dizziness, Fainting spells, Swelling in the ankles, Chest pain and Increased palpitations (irregular heartbeat) Meaningful Use Info Meaningful Use Diagnoses (Choose all that apply): None applicable Discharge Plan Admission Admit Date/Time: 07/20/22 04:07 Attending Provider: Abimael Shea Primary Care Provider: Annette Jackson Consulting Providers: Elza Kan ; Shine Cage Discharge Orders/Prescriptions Prescriptions: New aspirin 81 mg Tablet,Chewable 81 mg PO BREAKFAST Qty: 30 0RF atorvastatin 80 mg Tablet 80 mg PO QHS Qty: 30 0RF lisinopril 10 mg Tablet 10 mg PO DAILY Qty: 30 0RF Continued omeprazole 20 MG capsule 20 mg PO DAILY Label Comments: heartburn Vitamin D3 5,000 iu PO BID Label Comments: supplement Referrals / Follow Up: Annette Jackson DO [Primary Care Provider] - Within 1 Week Raffaele Callahan MD [Non-Staff] - Within 1 Month Disposition Disposition (needs filled in before D/C Order can be placed): Home, Self Care Charges/Coding Visit Charges Inpatient E&M: 23691 Disch Hosp
[2022-07-21 12:30] LABS: Bedside Glucose 120 mg/dL (74-106)
--- NOTE | 2022-07-21 12:41 | CASEMGMT ---
LIV CHAUDHARI updated by therapy that patient will need outpatient therapy and walker at discharge. LIV CHAUDHARI received scripts from hospitalist. LIV CHAUDHARI in room to discuss discharge needs with patient. Patient provided list of DME agencies in his geographical area and in-network with his insurance. Patient states he prefers [facility] for DME. Discussed outpatient, patient states he prefers to schedule on his own. Patient provided with script and information card for [facility] to schedule appointment. LIV CHAUDHARI sent referral via [facility] to [facility] and called Shawna at [facility] to arrange for walker to be delivered to patient's room prior to discharge. Patient had no further questions or concerns at this time.
== END 2022-07-21 14:46 | disposition home or self-care (01) | DRG 93 ==
LOC: ED 04:13 → ICU 04:26
PROVIDERS: Admitting Provider Family Medicine; Emergency Provider Emergency Medicine; PCP Family Medicine; Visit Provider Family Medicine
DX: R20.0 Anesthesia of skin (principal); E11.9 Type 2 diabetes mellitus without complications; F17.210 Nicotine dependence, cigarettes, uncomplicated; K21.9 Gastro-esophageal reflux disease without esophagitis; I10 Essential (primary) hypertension; F41.9 Anxiety disorder, unspecified; M62.81 Muscle weakness (generalized); R20.2 Paresthesia of skin; E66.9 Obesity, unspecified; R07.9 Chest pain, unspecified; R09.02 Hypoxemia; F32.A Depression, unspecified; Z86.73 Personal history of transient ischemic attack (TIA), and cerebral infarction without residual deficits; Z86.718 Personal history of other venous thrombosis and embolism; Z68.39 Body mass index [BMI] 39.0-39.9, adult
CPT/HCPCS: 70450; 70496; 70498; 70551; 71045; 71275; 80048; 80053; 80061; 80307; 81001; 82962; 83036; 83735; 84145; 84443; 84484; 85025; 85610; 85730; 87086; 87088; 87811; 92610; 93005; 93306; 97162; 97166; 97802; 97803; 99251; 99284; J2997; J7030; Q9967; A4216; C8929; G0463; J2405

== ENCOUNTER 2022-09-29 14:00 | Emergency (ER) | payer OTHER, SELFPAY ==
[2022-09-29 14:01] VITALS: BP 140/86; PULSE 111; RESP 18; TEMP 36.6; O2SAT 97; BMI 40.1
--- NOTE | 2022-09-29 14:10 | EKG12_ITS ---
Test Reason : PAIN Blood Pressure : / mmHG Vent. Rate : 097 BPM Atrial Rate : 097 BPM P-R Int : 174 ms QRS Dur : 080 ms QT Int : 340 ms P-R-T Axes : 053 072 050 degrees QTc Int : 431 ms Normal sinus rhythm Normal ECG Confirmed by JAZZY HUTCHINSON, ALVARADO ([id number]), editorial writer BLAKE MÉNDEZ ([id number]) on 09/30/2022 11:19:19 AM Referred By: Confirmed By:ALVARADO PURCELL MD
--- NOTE | 2022-09-29 14:12 | ED.VIS.LOWEX ---
HPI History of Present Illness Chief Complaint: Lower Extremity Injury Detail of Chief Complaint: Left leg pain with swelling and complaints of dyspnea Informant: patient Onset/Context/Timing Onset: Days (Leg pain has been present for a couple of days the shortness of breath started today) Context: Sudden Onset Timing: Continuous Quality of Pain: Aching Location: Left leg posterior Current Severity: Mild Maximum Severity: Moderate Worsened by: Palpation Relieved by: Nothing Associated Symptoms Associated Symptoms: Negative for Parasthesia, Weakness or Loss of Funtion Narrative Narrative: Patient is a 47-year-old male with his hypertension, hyper cholesterolemia and recent CVA who presents because of leg pain with swelling and shortness of breath. The pain has been present for couple of days. The shortness of breath started today. Patient denies fever, chills night sweats patient denies rhinorrhea, congestion, postnasal drainage sore throat. Patient denies cough. Patient denies orthopnea or PND. Patient denies GI symptoms. Patient denies urologic symptoms. Patient states he is on a blood thinner. Based on discharge summary and present records he is on aspirin only. Tetanus Immunization: 5-10 years Prior similar symptoms: No Recent Illness/Hospitalization: Yes (Admitted end of all risk for CVA, right hemisphere) [facility] Medical History Acute ischemic right MCA stroke Anxiety disorder CVA (cerebral vascular accident) DVT (deep venous thrombosis) GERD (gastroesophageal reflux disease) Obesity (BMI 30-39.9) Smoker TIA (transient ischemic attack) Tobacco dependence Vitamin D deficiency Home Medications omeprazole 20 mg capsule,delayed release 20 mg PO DAILY 12/28/14 [History Last Taken 11/08/16] Vitamin D3 5,000 iu PO BID Vitamin D deficiency 01/17/16 [History Last Taken 11/08/16] aspirin 81 mg chewable tablet 81 mg PO BREAKFAST #30 tabs 07/21/22 [Rx Last Taken Unknown] atorvastatin 80 mg tablet 80 mg PO QHS #30 tabs 07/21/22 [Rx Last Taken Unknown] lisinopril 10 mg tablet 10 mg PO DAILY #30 tabs 07/21/22 [Rx Last Taken Unknown] Allergy/AdvReac Type Severity Reaction Status Date / Time cortisone Allergy Shortness Verified 09/29/22 14:01 of breath Family History Father Heart disease Diabetes Surgical History History of ankle surgery History of removal of cyst Hx of arthrodesis Social History household members: significant other Smoking Status: Current every day smoker tobacco type: cigarettes alcohol intake: current alcohol intake frequency: a few times a month substance use type: does not use ROS ROS ED Constitutional Constitutional ED: Denies chills, fever(s), subjective, sweats or weight loss Eyes Eyes: Denies blurry vision, change in vision or diplopia ENT ENT ED: Denies ear pain, rhinorrhea or sore throat Cardiovascular Cardiovascular: Denies chest pain, orthopnea, palpitations, paroxysmal nocturnal dyspnea or racing heartbeat Respiratory/Chest Respiratory/Chest: Reports dyspnea and dyspnea on exertion; Denies cough, orthopnea, paroxysmal nocturnal dyspnea or sputum Gastrointestinal Gastrointestinal: Denies abdominal pain, constipation, diarrhea, nausea or vomiting Genitourinary Genitourinary ED: Denies dysuria, hematuria or urinary frequency Musculoskeletal Musculoskeletal: Denies arthralgias, back pain, myalgias or neck pain Integumentary Denies abscess, Abrasions or rash Neurologic Neurologic: Denies headache(s), paresthesias or weakness Psychiatric Psychiatric: Denies anxiety, depression, suicidal ideation or suicidal thoughts Endocrine Endocrinology: Denies polydipsia, polyphagia or polyuria Hematologic/Lymphatic Hematologic/Lymphatic: Denies easy bleeding or easy bruising EXAM Physical Exam Const Vital Signs: 09/29/22 14:01 09/29/22 14:20 09/29/22 16:46 Temperature 98 F Temperature Source Temporal Pulse Rate 111 H 100 86 Respiratory Rate 18 25 H 18 Blood Pressure 140/86 H 136/82 H 142/85 H Blood Pressure Mean 104 100 104 Pulse Ox 97 Oxygen Delivery Method Room Air Positive well nourished, well developed and obese General Appearance ED: well developed and NAD Nutritional Appearance: obese HEENT Reports moist mucous membranes HEENT Narrative: Ears normal. Nares patent. Uvula midline. No deviation tongue or protrusion. There is no erythema or exudate the posterior pharynx. normocephalic and atraumatic Eyes Eyes Narrative: Pupils equal round reactive. Extract muscle intact. Sclera is anicteric. Neck full ROM and supple Neck Narrative: There is no JVD. Chest Wall inspection of chest normal and palpation of chest normal Resp normal respiratory effort, no retractions and clear to auscultation bilaterally Cardio regular rhythm, S1 normal heart sound, S2 normal heart sound and no murmurs Rate: tachycardic GI non-tender, non-distended and no masses Auscultation: normoactive bowel sounds Palpation: soft Back/Spine no CVA tenderness Extremity Negative for normal to inspection Extremity Narrative: There is swelling of the left lower extremity compared to the right. There is tenderness on the disposition deep venous system. DP pulses palpable. Neuro oriented x3, CN's II-XII intact bilaterally and moves all extremities Sensorium / Orientation: alert Psych mental status grossly normal Skin no wounds Lesions: no lesions Rashes: no rashes MDM MDM MDM Narrative Medical decision making narrative: Concern patient has DVT. If his venous duplex study is negative since he is complaining of tachycardia and dyspnea will obtain CTA if D-dimer is elevated. If venous duplex is positive we will treat as if he has concurrent DVT and PE. Basic metabolic panel was obtained to assess renal function determine if the anticoagulant dose needs to be adjusted. CBC to rule out anemia. Lab Data Attestation: I reviewed the patient's lab results. Lab results narrative: White count is slightly elevated with no shift. This is nonspecific. Venous duplex study was negative for DVT. Labs: Laboratory Results - last 24 hr 09/29/22 09/29/22 09/29/22 14:23 14:23 14:23 WBC 14.2 H RBC 4.59 L Hgb 14.1 Hct 41.9 MCV 91.3 MCH 30.7 MCHC 33.7 RDW Std Deviation 43.6 RDW Coeff of Francisca 13.1 Plt Count 234 MPV 10.2 Immature Gran % (Auto) 0.700 Neut % (Auto) 69.5 Lymph % (Auto) 19.3 Allen % (Auto) 6.6 Eos % (Auto) 3.2 Baso % (Auto) 0.7 Absolute Neuts (auto) 9.9 H Absolute Lymphs (auto) 2.75 Nucleated RBC % 0 D-Dimer Quant (PE/DVT) 0.50 H Sodium 139 Potassium 3.8 Chloride 108 H Carbon Dioxide 27.0 Anion Gap 4 L BUN 12 Creatinine 0.95 Estim Creat Clear Calc 102.38 Est GFR (MDRD) Af Amer 109 Est GFR (MDRD) Non-Af 90 BUN/Creatinine Ratio 12.6 Glucose 134 H Calcium 8.8 Radiography Diagnostic Testing: Clinical Impression(s) from Imaging Studies Venous Doppler Study 09/29/22 14:18 Interpretation Summary There is no evidence of left lower extremity deep vein thrombosis. Left great saphenous vein appears patent and compressible segmentally. Normal flow patterns right common femoral vein Ordering Physician: Michael Nugent Referring Physician: Annette Jackson Performed By: Christine Stein T Chest CTA 09/29/22 16:12 IMPRESSION: Normal CTA chest examination, without a demonstrated pulmonary embolism or arterial dissection. Electronically Signed: Gómez Pimentel MD at 17:25 EST , EKG Initial EKG: Attestation: I personally reviewed and interpreted this EKG as follows: Interpretation: Sinus Rhythm (Normal sinus rhythm with a rate of 97. EKG is normal. AL interval is 174. QRS durations 80 ms. QT duration 340 ms. [place] is normal.) Discharge Plan Triage Chief Complaint: Lower Extremity Injury Other Complaint: Headache ED Provider: Michael Nugent Dx/Rx/DC Orders Clinical Impression: Acute pain of left lower extremity, Left leg swelling, History of deep vein thrombosis, Acute dyspnea, D-dimer, elevated Instructions: ED Dyspnea, ED Pain, Acute, Uncertain Cause Prescriptions: No Action omeprazole 20 MG capsule 20 mg PO DAILY Label Comments: heartburn Vitamin D3 5,000 iu PO BID Label Comments: supplement aspirin 81 mg Tablet,Chewable 81 mg PO BREAKFAST Qty: 30 0RF atorvastatin 80 mg Tablet 80 mg PO QHS Qty: 30 0RF lisinopril 10 mg Tablet 10 mg PO DAILY Qty: 30 0RF Primary Care Provider: Jose Luis Camp Referrals: Annette Jackson DO [Med Staff - Active Staff] - 3-5 Days if not improving Disposition Disposition: Home, Self Care
--- NOTE | 2022-09-29 14:18 | VDLE_ITS ---
Reason For Study: Pain RIGHT LEFT CFV is compressible, spontaneous, phasic, GSV is normal. competent and demonstrates normal CFV is compressible, spontaneous, phasic, augmentation. competent, and demonstrates normal Procedure augmentation. This is a venous duplex using B-mode, color FV is compressible, spontaneous, phasic, flow and spectral Doppler. competent and demonstrates normal Exam performed portable in ED. augmentation. A preliminary report was called and/or faxed POP V is compressible, spontaneous, phasic, to Raffi. competent and demonstrates normal augmentation. T/P Trunk is compressible. PTV is compressible. LT PerV is compressible. VL/Venous Duplex US, Unilateral Interpretation Summary There is no evidence of left lower extremity deep vein thrombosis. Left great s aphenous vein appears patent and compressible segmentally. Normal flow patterns right common femoral vein Ordering Physician: Michael Nugent Referring Physician: Annette Jackson Performed By: Christine Stein RVT
[2022-09-29 14:20] VITALS: BP 136/82; PULSE 100; RESP 25
[2022-09-29 14:35] LABS: Absolute Lymphocyte Count 2.75 X10^3/uL (0.83-4.51); Absolute Neutrophil Count 9.9 X10^3/uL (2.0-7.7); Basophil% 0.7 % (0-1); Eosinophil# 0.45 X10^3/uL; Eosinophils% 3.2 % (0-5); Hematocrit 41.9 % (40-54); Hemoglobin 14.1 g/dL (13.0-16.5); Lymphocyte # 2.75 X10^3/ul (0.83-4.51); Lymphocyte % 19.3 % (19-41); Mean Corp Hgb Conc 33.7 g/dL (32-36); Mean Corpuscular Hgb 30.7 pg (27.0-32.0); Mean Corpuscular Volume 91.3 fL (80-94); Mean Platelet Vol. 10.2 fl (6.2-12.0); Monocyte# 0.94 X10^3/uL; Monocyte% 6.6 % (0-10); NRBC Flagged by Analyzer 0 % (0-5); Neutrophil # 9.88 X10^3/uL (2.7-7.7); Neutrophil % 69.5 % (47-70); Platelet Count 234 K/mm3 (150-450); RBC Distribution Width CV 13.1 % (11.6-14.6); RBC Distribution Width SD 43.6 fl (35.1-43.9); Red Blood Count 4.59 M/mm3 (4.6-6.2); White Blood Count 14.2 K/mm3 (4.4-11.0)
[2022-09-29 14:47] LABS: Anion Gap 4 (5-15); BUN 12 mg/dL (7-18); BUN/Creat Ratio 12.6 RATIO (10-20); Calcium,Total 8.8 mg/dL (8.5-10.1); Chloride 108 mmol/L (98-107); Creatinine, Serum 0.95 mg/dL (0.70-1.30); EST Glomerular Filtration Rate 90 mL/min (>60); Est Glom Filt Rate - Afr Amer 109 mL/min (>60); Estimated Creatinine Clearance 102.38 ml/min; Glucose 134 mg/dL (74-106); Potassium 3.8 mmol/L (3.5-5.1); Sodium Level 139 mmol/L (136-145)
--- NOTE | 2022-09-29 16:12 | CT_ITS ---
STUDY: CTA CHEST REASON FOR EXAM: Male, 47 years old. Dyspnea, elevated D-dimer tachycardia RADIATION DOSAGE (If Supplied By Facility): CTDIvol = ( 19.79 ) mGy, DLP = ( 574.29 ) mGycm TECHNIQUE: The examination was performed with the intravenous administration of IV 100mL Isovue-370. Post-processing of the angiographic images was performed, with multiplanar reformation and 3D reconstruction. Individualized dose optimization techniques were used for this CT. COMPARISON: None. FINDINGS: Normal enhancement of the main pulmonary artery and right and left pulmonary arteries. Normal enhancement of the bilateral peripheral pulmonary arteries. There is no demonstrated pulmonary embolism. Normal thoracic aorta and visualized great vessels. There is no demonstrated aortic dissection. Normal heart and pericardium. Normal mediastinum. Normal hilar regions. Normal visualized trachea and bronchi. The lungs are well expanded. Normal pulmonary parenchyma. Normal pleura. Normal chest wall structures. Normal osseous structures. Partially calcified gallstone in the fundus the gallbladder consistent with cholelithiasis. CT/CTA Chest W/WO Contrast IMPRESSION: Normal CTA chest examination, without a demonstrated pulmonary embolism or arterial dissection. Electronically Signed: Gómez Pimentel MD at 17:25 [facility] ,
[2022-09-29 16:46] VITALS: BP 142/85; PULSE 86; RESP 18
[2022-09-29 18:00] VITALS: BP 142/85; PULSE 98; O2SAT 100
== END 2022-09-29 18:05 | disposition home or self-care (01) ==
PROVIDERS: Emergency Provider Emergency Medicine; PCP Family Medicine; Visit Provider Emergency Medicine
DX: M79.605 Pain in left leg (principal); Z86.73 Personal history of transient ischemic attack (TIA), and cerebral infarction without residual deficits; E78.00 Pure hypercholesterolemia, unspecified; F17.210 Nicotine dependence, cigarettes, uncomplicated; I10 Essential (primary) hypertension; R06.00 Dyspnea, unspecified; M79.89 Other specified soft tissue disorders; Z86.718 Personal history of other venous thrombosis and embolism
CPT/HCPCS: 71275; 80048; 85025; 85379; 93005; 93971; 99285; Q9967

== ENCOUNTER → 2022-10-02 | Outpatient (CLI) | payer OTHER, SELFPAY | END | disposition home or self-care (01) | LOC: SL 11:45 | PROVIDERS: PCP Family Medicine; Visit Provider Family Medicine | DX: G47.30 Sleep apnea, unspecified (principal) | CPT/HCPCS: 95806 ==

== ENCOUNTER 2022-11-19 12:00 | Outpatient (RCR) | payer OTHER, SELFPAY ==
--- NOTE | 2022-07-31 10:20 | HP.OTEVAL ---
Patient's Visit Information IRASEMA CUTLER is a 46 year old M, referred to Occupational Therapy by Dr. Abimael Shea MD, with a diagnosis of CVA. Date of Evaluation: 07/31/22 Occupational Therapist: Shona Weaver, JANISR/Santiago, CHT - Subjective This 46 year old male was seen for OT eval with dx of CVA. pt states he had stroke on 2021. pt states his left side went numb- blood pressure was high and he feels his left leg is really. weak- Pt states his left arm is getting better. 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 Pt was driving and took care of the yard work- pt would like to be back to work at 6 weeks. - ADLs Dressing: Socks Comments: is helping with left donning sock - Comments: pt lives in two story home with FF set up- two entry but has no difficulty with steps-. pt is using WW. tub shower combination- is helping him- . pt is getting his own meal- - ROM ROM Comments: pt demo ROM WNL - Strength Shoulder: right 26# peak force left 18# Elbow: right 26# left 25# [employer] Groom: right 110# left 100# Lateral Pinch: right 24# left 20# Tripod Pinch: right 18# left 18# Tip-to-Tip Pinch: right 16# left 12# - Sensation Sensation Comments: tingling at times but IND with buttons - Stroke Specific Quality of Life Total SS-QOL Score: 177 - Quick DASH-Disab of Arm,Shoulder& Hand Quick DASH Score: 55.0000 - Rehabilitation General Assessment: pt demo with bilateral UE ROM WNL and strength, no decrease in FM or sensation. pt is reporting he is EROS with dressing and light meal prep- Pts main concern is walking and balance. Pt would like to focus on his LE at this time- Therapist advised to initiate his prio UB free wt exercise and to perform while sitting. Pt agrees with his PLOC. - Anticipated Interventions Home Program, Other - Visit Plan General Plan: Pt will work with HEP for UB and will see Physical therapy for LE weakness and balance. TEXT: Thank you for the opportunity to evaluate your patient. For Medicare and Medicare HMO plans, please review the plan of care and approve it. It will need to be FAXED BACK to us at [phone] for Medicare purposes. Please let me know if there are questions or concerns regarding this plan of care. Physician Signature: Date:
--- NOTE | 2022-07-31 14:51 | HP.PTEVAL_ITS ---
Patient's Visit Information IRASEMA CUTLER is a 46 year old M referred to Physical Therapy by Dr. Abimael Shea MD with a diagnosis of CVA. Date of Evaluation: 07/31/22 Physical Therapist: Gonzalo Raya, PT, Cert MDT, OCS - Visit Plan Frequency: 2x /Week Duration: 6 Weeks Plan: PT INTERVETIONS PROGRESSIVE GAIT AND BALANCE TRAINING ,STRENGTHNEING LLE ,FUNCTIONAL STRENGTHENING AND ENDURANCE - Subjective This 46 y/o male presents to physical therapy with CVA . Patient had CVA affected left side leg which occurred on July 19 . Patient had CVA at work at [employer]. Patient went to ER via ambulance. CATSCAN showed TIA . Patient diagnostics revealed embolism (blood clot). Patient was in hospital for ~ 3 days. Patient d/c to home with fww . Recommended outpatient PT . Seen Family DRAntony Patient is trying to stop smoking. Patient lives with fianc?e. Home situation 2 story home 3 steps with rails. The bed and bath 1st floor. Tub/shower set up .Patient denies paresthesia/tingling. Patient reports no falls . Patient was found to have BP and elevated cholestral. Patient goals return to work and walk. - Objective POSTURE: mild forward posture. NEURO: c/o paresthesia left leg ,hypotonicity LLE ,reflexes Achilles /patella 1/3 ,light touch intact. GAIT: ambulates with fww slow fransisco with decrease swing -stance LLE. BALANCE: fair with fww. MMT( peak force) : LLE quads 3.7,hip flexion ,abduction 0 ,hamstrings 5.8,ankle DF 5.7. STAIRS : one step at time with rails. TRANSFERS: mod I with handrails - Balance/Special Test Scores CATSIB Score (Max score 120 seconds): 0 Lower Extremity Functional Score: 12 30 Second Chair Rise Test Seconds: 3 - Goals Goal 1:: Patient to be I with HEP Goal Time Frame: 6-8 Weeks Goal 2:: Patient to ambulate with no least restrictive device with improved gait pattern Goal Time Frame: 6-8 Weeks Goal 3:: Patient to improve dynamic balance to good- with increasing CATSIBE by 10 points Goal Time Frame: 6-8 Weeks Goal 4:: Patient to increase peak force of LLE by 10-15 to improve function and gait Goal Time Frame: 6-8 Weeks Goal 5:: Patient to improve LFES score by 10-15 points to improve QOL and RTW Goal Time Frame: 6-8 Weeks Goal 6:: Patient to increase 30sec sit-stand by 5-6 reps to improve functional strength Goal Time Frame: 6-8 Weeks - Rehabilitation Potential Physical Therapy Diagnosis: This patient had CVA affecting left side mainly left leg with weakness ,decrease balance , gait and function thus unable to RTW and ADL's thus benefit from skilled PT Rehabilitation Potential: Good - Anticipated Interventions Patient/Client Instruction: Educate patient on: Condition, Plan of Care, Risk Factors For the Purpose of:: To decrease pain, To increase ROM, To improve muscle performance and motor function, To improve ability to perform ADL's, To increase tolerance to activity/condition/position, To improve performance and independence with ADL's, To improve ability of physical actions for home/community/work/leisure, To improve gait and locomotor functions, To improve endurance, To improve balance, To improve self management, To improve tolerance to ADL's Therapeutic Exercise to Include: Strength training, Endurance training, Balance training, Gait and locomotor training, Active ROM Comment: LLE For the Purpose of:: To improve muscle performance and motor function, To improve ability to perform ADL's, To increase tolerance to activity/condition/position, To improve performance and independence with ADL's, To improve ability of physical actions for home/community/work/leisure, To improve gait and locomotor functions, To increase flexibility/ROM, To improve endurance, To improve balance, To improve safety with gait, To improve tolerance to ADL's Thank you for the opportunity to evaluate your patient. For Medicare and Medicare HMO plans, please review the plan of care and approve it. It will need to be FAXED BACK to us at [phone] for Medicare purposes. For Medicare only, by signing this I certify the plan of care. Please let me know if there are questions or concerns regarding this plan of care. Physician Signature: Dat e:
--- NOTE | 2022-11-19 13:19 | HP.PTREVAL ---
Dr. Annette Jackson, DO, It has been my pleasure to treat IRASEMA CUTLER over the last 26 visits for CVA. Please see the progress note below for an update on the physical therapy plan of care! Subjective: Doing okay seen Neuroligist Objective/Function: POSTURE: WFL. GAIT : reciprocal pattern decrease stance. MMT: (peak force) quads 34.7 ,hams 32.6,hip flexion 41. STAIRS: one step at time Plan Plan: cont with POC 2X/WEEK 4WEEKS. PT INTERVETIONS PROGRESSIVE GAIT AND BALANCE TRAINING, STRENGTHNEING LLE, FUNCTIONAL STRENGTHENING AND ENDURANCE ADD DEPTH PRECEPTION EX'S Balance/Gait/Functional tests - Balance/Special Test Scores Functional Gait Assessment Score: 17 % Disability: 43.3400 CATSIB Score (Max score 120 seconds): 100 Lower Extremity Functional Score: 47 30 Second Chair Rise Test Seconds: 10 Goals Goal 1:: Patient to be I with HEP Goal Time Frame: 6-8 Weeks Goal Progress: Progressing Goal 2:: Patient to ambulate with no least restrictive device with improved gait pattern( GOAL MET). NEW GOAL. Patient to improve 30sec sit-stand by 5 reps to improve endurance and function Goal Time Frame: 6-8 Weeks Goal Progress: Goal Met Goal 3:: Patient to improve dynamic balance to good- with increasing CATSIBE by 10 points ( NEW GOAL) Goal Time Frame: 6-8 Weeks Goal Progress: Progressing Goal 4:: Patient to increase peak force of LLE by 5-10 to improve function and gait( NEW GOALS) Goal Time Frame: 6-8 Weeks Goal Progress: Progressing Goal 5:: Patient to improve LFES score by 10-15 points to improve QOL and RTW Goal Time Frame: 6-8 Weeks Goal Progress: Progressing Goal 6:: Patient to increase 30sec sit-stand by 5 reps to improve functional strength( NEW GOALS) Goal Time Frame: 6-8 Weeks Anticipated Interventions Patient/Client Instruction: Educate patient on: Condition, Plan of Care, Risk Factors For the Purpose of:: To decrease pain, To increase ROM, To improve muscle performance and motor function, To improve ability to perform ADL's, To increase tolerance to activity/condition/position, To improve performance and independence with ADL's, To improve ability of physical actions for home/community/work/leisure, To improve gait and locomotor functions, To improve endurance, To improve balance, To improve self management, To improve tolerance to ADL's Therapeutic Exercise to Include: Strength training, Endurance training, Balance training, Gait and locomotor training, Active ROM Comment: LLE For the Purpose of:: To improve muscle performance and motor function, To improve ability to perform ADL's, To increase tolerance to activity/condition/position, To improve performance and independence with ADL's, To improve ability of physical actions for home/community/work/leisure, To improve gait and locomotor functions, To increase flexibility/ROM, To improve endurance, To improve balance, To improve safety with gait, To improve tolerance to ADL's Please do not hesitate to contact me at [phone] by phone or if you have questions or concerns regarding this new plan of care! Sincerely, Gonazlo Raay, PT, Cert MDT, OCS
== END 2022-11-19 19:00 | disposition home or self-care (01) ==
LOC: PT 12:00
PROVIDERS: PCP Family Medicine; Referring Provider Family Medicine; Visit Provider Family Medicine
DX: I69.344 Monoplegia of lower limb following cerebral infarction affecting left non-dominant side (principal)
CPT/HCPCS: 97110; 97162; 97166; 97530

== ENCOUNTER → 2022-11-19 | Outpatient (CLI) | payer OTHER, SELFPAY ==
[2022-11-19 12:22] LABS: Absolute Lymphocyte Count 2.94 X10^3/uL (0.83-4.51); Basophil# 0.08 X10^3/uL; Basophil% 0.8 % (0-1); Eosinophil# 0.45 X10^3/uL; Eosinophils% 4.2 % (0-5); Hematocrit 43.3 % (40-54); Hemoglobin 14.7 g/dL (13.0-16.5); Lymphocyte # 2.94 X10^3/ul (0.83-4.51); Lymphocyte % 27.7 % (19-41); Mean Corp Hgb Conc 33.9 g/dL (32-36); Mean Corpuscular Volume 94.1 fL (80-94); Mean Platelet Vol. 10.8 fl (6.2-12.0); Monocyte# 0.98 X10^3/uL; Monocyte% 9.2 % (0-10); NRBC Flagged by Analyzer 0 % (0-5); Neutrophil % 56.7 % (47-70); Platelet Count 268 K/mm3 (150-450); RBC Distribution Width CV 13.2 % (11.6-14.6); RBC Distribution Width SD 45.2 fl (35.1-43.9); White Blood Count 10.6 K/mm3 (4.4-11.0)
[2022-11-19 12:34] LABS: Cholesterol 220 mg/dL (200); High Density Lipoprotein 31 mg/dL; Triglycerides 109 mg/dL; Very Low Density Lipoprotein 22 mg/dL (5-40)
[2022-11-19 12:37] LABS: Hemoglobin A1c 5.6 % (3.8-5.6)
[2022-11-19 12:53] LABS: Erythrocyte Sedimentation Rate 39 mm/hr (0-20)
[2022-11-20 17:06] LABS: ANTINUCLEAR ANTIBODIES DIRECT Negative (Negative)
[2022-11-25 12:08] LABS: Complement C3 156 mg/dL (82-167); Dilute Prothrombin Time (dPT) 41.2 sec (0.0-47.6); Dilute Russell Viper Venom 40.9 sec (0.0-47.0); PTT-LA 38.3 sec (0.0-51.9); Protein C Antigen 76 % (60-150); Protein S, Free 116 % (61-136); Thrombin Time 15.7 sec (0.0-23.0)
[2022-11-25 19:24] LABS: Anti-Cardiolipin Ab, IgA, Qn < 9 APL U/mL (0-11); Anti-Cardiolipin Ab, IgG, Qn < 9 GPL U/mL (0-14); Anti-Cardiolipin Ab, IgM, Qn 20 MPL U/mL (0-12); Anti-Thrombin 3 AG, Immunol 96 % (72-124); Antithrombin 3 Function 104 % (75-135); Complement CH50 > 60 U/mL (>41); Interpretation Comment: (.); Protein C, Functional 107 % (73-180); Protein S, Funtional 88 % (63-140); Protein S, Total 107 % (60-150)
== END | disposition home or self-care (01) ==
LOC: MTLAB 10:47
PROVIDERS: PCP Family Medicine; Referring Provider Psychiatry & Neurology Neurology; Visit Provider Psychiatry & Neurology Neurology
DX: I67.9 Cerebrovascular disease, unspecified (principal)
CPT/HCPCS: 36415; 80061; 81240; 81241; 83036; 85025; 85300; 85301; 85302; 85303; 85305; 85306; 85652; 86038; 86147; 86160; 86162; 86225; 86235

== ENCOUNTER → 2023-04-02 | Outpatient (CLI) | payer BC, SELFPAY ==
[2023-04-02 10:26] LABS: Vitamin B12 253 pg/mL (211-911)
[2023-04-02 10:34] LABS: ALB/GLOB Ratio 0.8 RATIO (0.9-2.4); AST(SGOT) 16 U/L (15-37); Alanine Aminotransfer ALT/SGPT 27 U/L (16-61); Albumin, Serum 3.3 g/dL (3.2-5.0); Alkaline Phosphatase 71 U/L (45-117); Anion Gap 6 (5-15); BUN 14 mg/dL (7-18); BUN/Creat Ratio 13.7 RATIO (10-20); Chloride 105 mmol/L (98-107); Cholesterol 166 mg/dL (200); Creatinine, Serum 1.02 mg/dL (0.70-1.30); EST Glomerular Filtration Rate 83 mL/min (>60); Est Glom Filt Rate - Afr Amer 100 mL/min (>60); Globulin 4.3 g/dL (2.2-4.2); Glucose 104 mg/dL (74-106); High Density Lipoprotein 34 mg/dL; Protein, Total 7.6 g/dL (6.4-8.2); Sodium Level 137 mmol/L (136-145); Thyroid Stim Hormone (TSH) 2.96 uIU/mL (0.358-3.74); Triglycerides 79 mg/dL; Very Low Density Lipoprotein 16 mg/dL (5-40)
[2023-04-03 17:07] LABS: Anti-Cardiolipin Ab, IgA, Qn < 9 APL U/mL (0-11); Anti-Cardiolipin Ab, IgG, Qn < 9 GPL U/mL (0-14); Anti-Cardiolipin Ab, IgM, Qn < 9 MPL U/mL (0-12)
== END | disposition home or self-care (01) ==
LOC: MTLAB 08:02
PROVIDERS: PCP Family Medicine; Referring Provider Psychiatry & Neurology Neurology; Visit Provider Psychiatry & Neurology Neurology
DX: I67.9 Cerebrovascular disease, unspecified (principal); E78.5 Hyperlipidemia, unspecified; R53.83 Other fatigue
CPT/HCPCS: 36415; 80053; 80061; 82607; 84443; 86147

== ENCOUNTER 2023-04-09 13:27 | Inpatient (IN) | payer BC, SELFPAY ==
[2023-04-09] VITALS (29 sets, daily range): BP systolic 119–151; BP diastolic 70–99; PULSE 54–88; RESP 10–22; TEMP 35.7–36.5; O2SAT 95–100; BMI 39.7; BMI 38.4
--- NOTE | 2023-04-09 13:30 | ED.RN ---
Dr. Fenton at bedside for pt arrival via EMS. stroke alert not called at this time. pt very minimally responsive- see glascow coma scale charting. unable to perform NIH on arrival to ED.
--- NOTE | 2023-04-09 13:32 | CT_ITS ---
STUDY: CT BRAIN WITHOUT CONTRAST REASON FOR EXAM: Male, 47 years old. AMS. Unresponsive. RADIATION DOSAGE (If Supplied By Facility): CTDIvol = ( 44.99 ) mGy, DLP = ( 914.22 ) mGycm TECHNIQUE: Transaxial CT imaging of the brain was performed without administration of intravenous contrast material. Individualized dose optimization techniques were used for this CT. COMPARISON: Comparison is made with prior study July 21, 2022. FINDINGS: Normal soft tissue structures. Normal calvarium. Normal size ventricles and extra-axial spaces for the patient''s age. Normal white matter tracts of the cerebral hemispheres. Normal basal ganglia and thalami. Normal brainstem. Normal cerebellum. There is no intracranial hemorrhage. There are no findings of an acute ischemic infarction. Minimal mucosal thickening of the posterior aspect of the right maxillary sinus. CT/Brain/Head without Contrast IMPRESSION: Normal unenhanced CT scan of the brain. Electronically Signed: Chi Zeng MD at 13:57 EDT ,
--- NOTE | 2023-04-09 13:32 | EKG12_ITS ---
Test Reason : UNRESP Blood Pressure : / mmHG Vent. Rate : 083 BPM Atrial Rate : 083 BPM P-R Int : 186 ms QRS Dur : 086 ms QT Int : 368 ms P-R-T Axes : 055 068 046 degrees QTc Int : 432 ms Sinus rhythm with Premature ventricular complexes or Fusion complexes Otherwise normal ECG Confirmed by JODI HUTCHINSON, CHIDI ([id number]), scientific editor BLAKE MÉNDEZ ([id number]) on 04/12/2023 10:30:34 AM Referred By: Confirmed By:CHIDI ZAPATA MD
--- NOTE | 2023-04-09 13:33 | EX.ED.DYSGE1 ---
HPI History of Present Illness Chief Complaint: Unresponsive Informant: EMS Limited: other (Mental status change) Narrative Narrative: Patient is a 47-year-old female with history of stroke, DVT, obstructive sleep apnea, hypertension, GERD, obesity and anxiety presenting for altered mental status. Apparently patient was out working in the garden when he called out for help and was found on the ground. EMS was called. Patient would intermittently moan out for EMS. Blood sugar was in the 90s per EMS. is now at the bedside. She states that he was out in the garden when he called for help and ask for chair. When she got back he was laying on the ground. He was not making any meaningful conversation. She thinks that he may have he is on Plavix or aspirin but does not think he is on anything more than that. He was in his normal state of health before this. She states he had something similar at their wedding (a month ago) where he was dancing and then started get really red and hot and said he could not breathe. He had to sit down for some time. He did have what sounds like an MCA distribution stroke in October 2022. [facility] Medical History Acute ischemic right MCA stroke Anxiety disorder CVA (cerebral vascular accident) DVT (deep venous thrombosis) GERD (gastroesophageal reflux disease) Obesity (BMI 30-39.9) Smoker TIA (transient ischemic attack) Tobacco dependence Vitamin D deficiency Home Medications Vitamin D3 5,000 iu PO BID Vitamin D deficiency 01/17/16 [History Last Taken 11/08/16] aspirin 81 mg chewable tablet 81 mg PO BREAKFAST #30 tabs 07/21/22 [Rx Last Taken Unknown] lisinopril 10 mg tablet 10 mg PO DAILY #30 tabs 07/21/22 [Rx Last Taken Unknown] rosuvastatin 40 mg tablet 40 mg PO DAILY 03/30/23 [History Last Taken Unknown] esomeprazole magnesium 40 mg capsule,delayed release 40 mg PO DAILY 04/09/23 [History Last Taken Unknown] Allergy/AdvReac Type Severity Reaction Status Date / Time cortisone Allergy Severe Shortness Verified 04/09/23 13:28 of breath Family History Father Heart disease Diabetes Surgical History History of ankle surgery History of removal of cyst Hx of arthrodesis Social History household members: significant other Smoking Status: Light Smoker (<10/day) Tobacco: How many years used: 47 second hand exposure: No alcohol intake: current alcohol intake frequency: a few times a month details: rarely substance use type: does not use what type of physical activity do you participate in: walking and other details: OT - PT armando/buddhism: Adventism seatbelt use: always ROS ROS ED Review of Systems ROS Unobtainable: due to mental status EXAM Physical Exam Const Vital Signs: 04/09/23 13:28 04/09/23 13:48 04/09/23 13:59 Temperature 97.7 F L Temperature Source Temporal Pulse Rate 88 82 87 Respiratory Rate 22 H 18 18 Blood Pressure 142/77 H 144/86 H 127/83 H Blood Pressure Mean 98 105 97 Blood Pressure Source Blood Pressure Position Blood Pressure Location Pulse Ox 97 97 98 Oxygen Delivery Method Room Air Room Air Room Air 04/09/23 14:14 04/09/23 14:04 04/09/23 14:19 Temperature 97.6 F L 97.3 F L Temperature Source Temporal Temporal Pulse Rate 79 79 Respiratory Rate 18 18 Blood Pressure 127/83 H Blood Pressure Mean Blood Pressure Source Monitor Monitor Blood Pressure Position Semi-Fowlers Semi-Fowlers Blood Pressure Location Right Arm Right Arm Pulse Ox 97 95 Oxygen Delivery Method Room Air Room Air Positive well nourished, well developed and obese General Appearance ED: well developed Nutritional Appearance: obese HEENT Reports moist mucous membranes Negative for trauma Eyes Eyes Narrative: Pupils equal round reactive to light. When I attempt to open his eyes as he does not open them spontaneously he will squeeze his eyelid shut. He has a wandering gaze but does seem to intermittently fixate on my face and then keep moving his eyes around. No directional deviation appreciated. No nystagmus. Neck supple Chest Wall inspection of chest normal and palpation of chest normal Resp normal respiratory effort and clear to auscultation bilaterally Cardio regular rate, regular rhythm and no murmurs GI normal to inspection, nondistended, normoactive bowel sounds Extremity normal to inspection General Extremety ED: Negative for edema or tenderness General Extremity: Negative for edema Neuro Wild Coma Scale: document GCS findings None Localizes to Pain Incomprehensible 8 Skin no rashes or lesions noted and no wounds MDM MDM MDM Narrative Medical decision making narrative: Patient arrived with altered mental status. Is obtunded upon arrival. When he returned from CT he is reevaluated is now sitting up. Complaint of nausea. Patient now was noted to have left-sided deficits with slurred speech. See NIH below. Stroke alert is called. CT was read as no acute process. Patient reevaluated continue to have the same deficits, slurred speech and left-sided weakness with paresthesias. Telestroke is currently delayed as they are in another call. Decision was made to give TNKase do not delay it as patient is having clear stroke symptoms with a last known well of 1 PM. Patient does not meet any exclusion criteria. Case is discussed with neurology on-call at [facility], Dr. Giuliano Carrington, who agrees on my decision to give TNK. Discussed the other differential would include a postictal state however there is no observed seizure-like activity. Patient does not have any change on his mental status/neuro exam immediately after the TNK. Lab work remarkable for mild leukocytosis 12.1 which is nonspecific. Remainder of work-up is largely normal. Ammonia is minimally elevated at 34 but I do not think this explains his neurologic symptoms. CT of the brain, chest x-ray and CT of the head and neck are normal. This is communicated to me by Dr. Bhatt, radiology. Patient will be admitted to the ICU for close neurologic monitoring and further work-up. History & Record Review Discussion w/independent historian: EMS personnel and Significant other Additional record(s) reviewed:: Prior inpatient record Lab Data Attestation: I reviewed the patient's lab results. Labs: Laboratory Results - last 24 hr 04/09/23 04/09/23 04/09/23 13:24 13:24 13:24 WBC 12.1 H RBC 4.49 L Hgb 13.8 Hct 41.4 MCV 92.2 MCH 30.7 MCHC 33.3 RDW Std Deviation 42.6 RDW Coeff of Francisca 12.8 Plt Count 204 MPV 10.0 Immature Gran % (Auto) 1.100 H Neut % (Auto) 52.5 Lymph % (Auto) 31.5 Phillips % (Auto) 10.0 Eos % (Auto) 4.1 Baso % (Auto) 0.8 Absolute Neuts (auto) 6.4 Absolute Lymphs (auto) 3.83 Nucleated RBC % 0 PT 13.4 INR 1.0 APTT 29.2 Sodium 138 Potassium 4.2 Chloride 106 Carbon Dioxide 25.0 Anion Gap 7 BUN 13 Creatinine 1.01 Estim Creat Clear Calc 96.30 Est GFR (MDRD) Af Amer 102 Est GFR (MDRD) Non-Af 84 BUN/Creatinine Ratio 12.9 Glucose 94 Calcium 9.0 Total Bilirubin 0.40 AST 32 ALT 33 Alkaline Phosphatase 76 Ammonia Troponin I High Sens < 3 L Total Protein 7.8 Albumin 3.3 Globulin 4.5 H Albumin/Globulin Ratio 0.7 L Urine Color Urine Clarity Urine pH Ur Specific [place] Urine Protein Urine Glucose (UA) Urine Ketones Urine Occult Blood Urine Nitrite Urine Bilirubin Urine Urobilinogen Ur Leukocyte Esterase Urine RBC Urine WBC Ur Squamous Epith Cells Urine Bacteria Hyaline Casts Urine Mucus Urine Opiates Screen Urine Methadone Screen Ur Barbiturates Screen Ur Phencyclidine Scrn Ur Amphetamines Screen MDMA (Ecstasy) Screen U Benzodiazepines Scrn Urine Cocaine Screen U Cannabinoids Screen Ur Drug Screen Comment Ethyl Alcohol POC Glucose 04/09/23 04/09/23 04/09/23 13:24 13:24 13:31 WBC RBC Hgb Hct MCV MCH MCHC RDW Std Deviation RDW Coeff of Francisca Plt Count MPV Immature Gran % (Auto) Neut % (Auto) Lymph % (Auto) Phillips % (Auto) Eos % (Auto) Baso % (Auto) Absolute Neuts (auto) Absolute Lymphs (auto) Nucleated RBC % PT INR APTT Sodium Potassium Chloride Carbon Dioxide Anion Gap BUN Creatinine Estim Creat Clear Calc Est GFR (MDRD) Af Amer Est GFR (MDRD) Non-Af BUN/Creatinine Ratio Glucose Calcium Total Bilirubin AST ALT Alkaline Phosphatase Ammonia 34.0 H Troponin I High Sens Total Protein Albumin Globulin Albumin/Globulin Ratio Urine Color Urine Clarity Urine pH Ur Specific [place] Urine Protein Urine Glucose (UA) Urine Ketones Urine Occult Blood Urine Nitrite Urine Bilirubin Urine Urobilinogen Ur Leukocyte Esterase Urine RBC Urine WBC Ur Squamous Epith Cells Urine Bacteria Hyaline Casts Urine Mucus Urine Opiates Screen Urine Methadone Screen Ur Barbiturates Screen Ur Phencyclidine Scrn Ur Amphetamines Screen MDMA (Ecstasy) Screen U Benzodiazepines Scrn Urine Cocaine Screen U Cannabinoids Screen Ur Drug Screen Comment Ethyl Alcohol < 3.0 POC Glucose 93 04/09/23 04/09/23 13:45 13:45 WBC RBC Hgb Hct MCV MCH MCHC RDW Std Deviation RDW Coeff of Francisca Plt Count MPV Immature Gran % (Auto) Neut % (Auto) Lymph % (Auto) Phillips % (Auto) Eos % (Auto) Baso % (Auto) Absolute Neuts (auto) Absolute Lymphs (auto) Nucleated RBC % PT INR APTT Sodium Potassium Chloride Carbon Dioxide Anion Gap BUN Creatinine Estim Creat Clear Calc Est GFR (MDRD) Af Amer Est GFR (MDRD) Non-Af BUN/Creatinine Ratio Glucose Calcium Total Bilirubin AST ALT Alkaline Phosphatase Ammonia Troponin I High Sens Total Protein Albumin Globulin Albumin/Globulin Ratio Urine Color Yellow Urine Clarity Clear Urine pH 5.0 Ur Specific [place] 1.025 Urine Protein 15 H Urine Glucose (UA) Normal Urine Ketones 5 H Urine Occult Blood Negative Urine Nitrite Negative Urine Bilirubin Negative Urine Urobilinogen 4 H Ur Leukocyte Esterase 25 H Urine RBC 0 SEEN Urine WBC 0 SEEN Ur Squamous Epith Cells 0 SEEN Urine Bacteria 0 SEEN Hyaline Casts 0-5 SEEN Urine Mucus 0 SEEN Urine Opiates Screen NEGATIVE Urine Methadone Screen NEGATIVE Ur Barbiturates Screen NEGATIVE Ur Phencyclidine Scrn NEGATIVE Ur Amphetamines Screen NEGATIVE MDMA (Ecstasy) Screen NEGATIVE U Benzodiazepines Scrn NEGATIVE Urine Cocaine Screen NEGATIVE U Cannabinoids Screen NEGATIVE Ur Drug Screen Comment Ethyl Alcohol POC Glucose ABG Data ABG results: ABG 04/09/23 13:55 Specimen Type ART Sample Site L Radial pH 7.41 Bicarbonate Actual 25.9 Total CO2 27 Base Excess 1 O2 Saturation 94 L ABG pCO2 40.8 ABG pO2 72 L Kenton Test Positive O2 Delivery Device Room Air Radiography Chest X-Ray - ED: 1 View, Read by ED Physician, Read by Radiologist and No Acute Disease Diagnostic Testing: Clinical Impression(s) from Imaging Studies Brain CT 04/09/23 13:32 IMPRESSION: Normal unenhanced CT scan of the brain. Electronically Signed: Chi Zeng MD at 13:57 EDT , Chest X-Ray 04/09/23 13:40 IMPRESSION: No acute abnormality is seen. Electronically Signed: Chi Zeng MD at 13:57 EDT , Head/Neck CTA 04/09/23 13:59 IMPRESSION: Normal CTA Head and neck with contrast. N.B. : The above Results were Read Back by Chi Zeng MD to Deysi Fenton and understanding confirmed on 04/09/2023 14:28:41 (ET). Electronically Signed: Chi Zeng MD at 14:30 EDT , ADDENDUM: 04/09/23 1437 IMPRESSION: Normal CTA Head and neck with contrast. N.B. : The above Results were Read Back by Chi Zeng MD to Deysi Fenton and understanding confirmed on 04/09/2023 14:28:41 (ET). Electronically Signed: Chi Zeng MD at 14:30 EDT , Rhythm Strip Rhythm Strip: Sinus Rhythm Rate: 83 Ectopy: PVC(s) EKG Initial EKG: Attestation: I personally reviewed and interpreted this EKG as follows: Interpretation: Sinus Rhythm Comments: Normal sinus rhythm at a rate of 83 bpm with a PVC present Normal intervals Normal axis Normal ST segments Management Discussion w/another healthcare provider: Hospitalist and Professor Of Environmental Engineering Discharge Plan Triage Chief Complaint: Unresponsive ED Provider: Deysi Fenton Dx/Rx/DC Orders Clinical Impression: Acute left-sided muscle weakness, Slurred speech, Stroke-like symptoms, Hypertension, AMS (altered mental status) Prescriptions: No Action rosuvastatin 40 mg tablet 40 mg PO DAILY Vitamin D3 5,000 iu PO BID Label Comments: supplement aspirin 81 mg Tablet,Chewable 81 mg PO BREAKFAST Qty: 30 0RF lisinopril 10 mg Tablet 10 mg PO DAILY Qty: 30 0RF esomeprazole magnesium 40 mg capsule,delayed release(DR/EC) 40 mg PO DAILY Label Comments: TAKE 1 CAPSULE BY MOUTH ONCE DAILY Primary Care Provider: Annette Jackson Referrals: Annette Jackson, [Primary Care Provider] - Disposition Disposition: Acute Care Hospital [facility] NIHSS NIHSS 1a. Level of Consciousness: Not alert; 1b. LOC Questions: Answers BOTH questions correctly. 1c. LOC Commands: Performs both tasks correctly. 2. Best Gaze: Normal 3. Visual: No visual loss 4. Facial Palsy: Normal symmetrical movements 5a. Left Arm: Some effort against gravity; 5b. Right Arm: No drift; arm holds 90 (or 45) degrees for full 10 seconds 6a. Left Leg: Some effort against gravity; 6b. Right Leg: No drift; leg holds 30-degree position for full 5 seconds 7. Limb Ataxia: Absent 8. Sensory: Ixfo-rm-klaevnmo sensory loss; 9. Best Language: Nban-ju-zddkqfth aphasia; 10. Dysarthria: Cfyc-ge-dqarfwbp dysarthria; 11. Extinction and Inattention: No abnormality Total: 8 Stroke Questions Stroke Team Activated: Yes a.Reviewed Inclusion/Exclusion criteria: Yes IV Thrombolytic Administered: Yes No contraindications from thrombolytic administration: Yes Risks, Benefits, Alternatives Discussed: Yes Critical care time (excluding procedures): 30-74 minutes (35-discussing with family, discussing with neurology, admitting physician.)
--- NOTE | 2023-04-09 13:40 | RAD_ITS ---
STUDY: X-RAY CHEST REASON FOR EXAM: Male, 47 years old. AMS TECHNIQUE: Single AP portable view of the chest. COMPARISON: Comparison is made with prior study dated July 20, 2022. FINDINGS: EKG electrodes are seen. The lungs are clear and expanded. There is no demonstrated pleural abnormality. Normal size heart. Normal mediastinum and eder. Normal visualized pulmonary arteries. Normal visualized aortic arch and descending thoracic aorta. There are degenerative changes of the visualized thoracic spine. Normal visualized ribs, clavicles, and shoulders. There is no demonstrated abnormality of the visualized soft tissue structures of the upper abdomen. RAD/Chest 1 View (Portable) IMPRESSION: No acute abnormality is seen. Electronically Signed: Chi Zeng MD at 13:57 EDT ,
[2023-04-09 13:42] LABS: Absolute Lymphocyte Count 3.83 X10^3/uL (0.83-4.51); Absolute Neutrophil Count 6.4 X10^3/uL (2.0-7.7); Basophil% 0.8 % (0-1); Eosinophils% 4.1 % (0-5); Hematocrit 41.4 % (40-54); Hemoglobin 13.8 g/dL (13.0-16.5); Lymphocyte # 3.83 X10^3/ul (0.83-4.51); Lymphocyte % 31.5 % (19-41); Mean Corp Hgb Conc 33.3 g/dL (32-36); Mean Corpuscular Hgb 30.7 pg (27.0-32.0); Mean Corpuscular Volume 92.2 fL (80-94); Monocyte# 1.22 X10^3/uL; NRBC Flagged by Analyzer 0 % (0-5); Neutrophil # 6.36 X10^3/uL (2.7-7.7); Neutrophil % 52.5 % (47-70); Platelet Count 204 K/mm3 (150-450); RBC Distribution Width CV 12.8 % (11.6-14.6); RBC Distribution Width SD 42.6 fl (35.1-43.9); Red Blood Count 4.49 M/mm3 (4.6-6.2); White Blood Count 12.1 K/mm3 (4.4-11.0)
[2023-04-09 13:57] LABS: Prothrombin Time (Protime)PT. 13.4 SECONDS (11.7-14.9)
[2023-04-09 13:57] LABS: Bacteria 0 SEEN /hpf (None Seen); Mucous, Urine 0 SEEN /hpf (<or=2+); Red Blood Cells-Urine 0 SEEN /hpf (0-5); Squamous Epithelial Cells - UA 0 SEEN /hpf (0-5); White Blood Cells 0 SEEN /hpf (0-5)
--- NOTE | 2023-04-09 13:57 | ED.RN ---
Dr. Fenton back in room to reassess pt. Patient awake now, able to perform NIH. stroke alert called at 1357. pt back down to CT scanner for CTA. [facility] called by this RN. Stated to call back when pt in room. Spoke with Dr. Fenton, who is ordering tenectaplase. States she does not need to beam in on robot computer with [facility] and will talk to them by phone. This RN called [facility] - the neurologist is on another call and they will call back to ED. When they called back, the neurologist beamed in to perform assessment on robot. See charting for time tenectaplase given on JAN.
[2023-04-09 13:58] LABS: Partial Thromboplast Time 29.2 Seconds (24.1-36.2)
--- NOTE | 2023-04-09 13:59 | CT_ITS ---
STUDY: CTA HEAD AND NECK WITH CONTRAST REASON FOR EXAM: Male, 47 years old. Neuro deficit, acute, stroke suspected RADIATION DOSAGE (If Supplied By Facility): CTDIvol = ( 24.03 ) mGy, DLP = ( 773.97 ) mGycm TECHNIQUE: CT angiography was performed with a multi-detector CT scanner. Data acquisition was obtained from the skull base through the vertex following intravenous administration of IV 100mL [id number]-[id number]. MIP images were reconstructed from the axial data set. Post-processing of the angiographic images was performed, with multiplanar reformation and 3D reconstruction. Individualized dose optimization techniques were used for this CT. COMPARISON: Comparison is made with prior examination dated July 20, 2022. FINDINGS: Normal bilateral petrous carotid arteries. Normal right cavernous carotid artery with a normal supraclinoid bifurcation. Normal left cavernous carotid artery with a normal supraclinoid bifurcation. Normal right A1 segments of the anterior cerebral artery. Normal left A1 segments of the anterior cerebral artery. Normal intact anterior communicating artery (ACOM). Normal bilateral A2 segments of the anterior cerebral arteries. Normal right M1 and M2 segments of the middle cerebral arteries, with a normal M1 bifurcation. Normal left M1 and M2 segments of the middle cerebral arteries, with a normal M1 bifurcation. Normal right posterior communicating artery (PCOM). Normal left posterior communicating artery (PCOM). Normal bilateral vertebral arteries. Normal basilar artery with a normal basilar bifurcation. The visualized bilateral superior cerebellar (SCA) arteries are normal. Normal bilateral P1, P2 and visualized P3 segments of the posterior cerebral arteries. There is no demonstrated aneurysm of the point [place] of [place]. There is no demonstrated abnormality of the visualized brain. AORTIC ARCH: Normal visualized aortic arch. Normal origins of the brachiocephalic, left common carotid, and left subclavian arteries. Mild calcific plaque at the origin of the left subclavian artery. RIGHT CAROTID ARTERIES: Normal right common carotid artery (CCA). Normal right common carotid bulb. Normal origin of the right internal carotid (ICA) artery without a hemodynamically significant stenosis. Normal visualized cervical portion of the right internal carotid artery. Normal origin of the right external carotid artery (ECA). LEFT CAROTID ARTERIES: Normal left common carotid artery (CCA). Normal left common carotid bulb. Normal origin of the left internal carotid (ICA) artery without a hemodynamically significant stenosis. Normal visualized cervical portion of the left internal carotid artery. Normal origin of the left external carotid artery (ECA). VERTEBRAL ARTERIES: Normal bilateral vertebral arteries. CT/STROKE CTA Head AND Neck W/Con IMPRESSION: Normal CTA Head and neck with contrast. N.B. : The above Results were Read Back by Chi Zeng MD to Deysi Fenton and understanding confirmed on 04/09/2023 14:28:41 (ET). Electronically Signed: Chi Zeng MD at 14:30 EDT ,
[2023-04-09 14:00] LABS: Allen Test Positive; Base Excess 1 mmol/L (-2 to +2); Bicarbonate 25.9 mmol/L (22-26); Blood Gas Specimen Type ART; O2 Delivery Device Room Air; PO2 72 mmHG (75-100); SITE L Radial; SO2 94 % (95-99); Total Carbon Dioxide 27 mmol/L; pCO2 40.8 mmHg (35-45); pH 7.41 (7.35-7.45)
[2023-04-09 14:01] LABS: Color, Urine Yellow (Yellow); Glucose, Dipstick Normal (Normal); Ketone-Dipstick 5 mg/dl (Negative); Leukocyte Esterase-Dipstick 25 /ul (Negative); Nitrite-Dipstick Negative (Negative); Occult Blood-Urine Negative /ul (Negative); Protein-Dipstick 15 mg/dl (Negative); Specific Gravity, Urine 1.025 (1.002-1.030); Urine Bilirubin Dipstick Negative (Negative); Urine Clarity Clear (Clear); Urine Urobilinogen 4 mg/dl (Normal)
--- NOTE | 2023-04-09 14:01 | CM.ED ---
Social Work SW introduced self and role to family member. SW provided emotional support to spouse that was tearful in patient's room. Janet Zimmerman GRAIN DRIER OPERATOR, AUTO PARTS PROFESSIONAL
[2023-04-09 14:07] LABS: ALB/GLOB Ratio 0.7 RATIO (0.9-2.4); AST(SGOT) 32 U/L (15-37); Alanine Aminotransfer ALT/SGPT 33 U/L (16-61); Albumin, Serum 3.3 g/dL (3.2-5.0); Alkaline Phosphatase 76 U/L (45-117); Anion Gap 7 (5-15); BUN 13 mg/dL (7-18); BUN/Creat Ratio 12.9 RATIO (10-20); Chloride 106 mmol/L (98-107); Creatinine, Serum 1.01 mg/dL (0.70-1.30); EST Glomerular Filtration Rate 84 mL/min (>60); Est Glom Filt Rate - Afr Amer 102 mL/min (>60); Globulin 4.5 g/dL (2.2-4.2); Glucose 94 mg/dL (74-106); Potassium 4.2 mmol/L (3.5-5.1); Protein, Total 7.8 g/dL (6.4-8.2); Sodium Level 138 mmol/L (136-145); Troponin-I HS (w/2H Reflex) < 3 pg/mL (3.0-78.0)
[2023-04-09 14:10] LABS: Bedside Glucose 93 mg/dL (74-106)
[2023-04-09 14:10] LABS: Alcohol, Blood (Medical)-Serum < 3.0 mg/dL
[2023-04-09 14:10] LABS: Hyaline Cast 0-5 SEEN /lpf (0-5)
[2023-04-09] MEDS: 0.9% Saline Lock 10 ML Syringe IV ×3 (14:13→20:04)
[2023-04-09] MEDS: Tenecteplase 25 MG in Syringe 1 EACH 3600 MG IV (14:14)
[2023-04-09] MEDS: Ondansetron 4 MG/2 ML Vial IV (14:15)
[2023-04-09] MEDS: 0.9% Normal Saline 1,000 ML 100 ML IV ×2 (14:16→22:03)
[2023-04-09 14:21] LABS: Amphetamine Urine VISTA NEGATIVE (<1000 ng/mL); Barbiturate Urine VISTA NEGATIVE (< 200 ng/mL); Benzodiazepine Urine VISTA NEGATIVE (< 200 ng/mL); Cocaine Urine VISTA NEGATIVE (< 300 ng/mL); Ecstacy Urine VISTA NEGATIVE (< 500 ng/mL); Methadone Urine VISTA NEGATIVE (< 300 ng/mL); PCP Urine VISTA NEGATIVE (< 25 ng/mL); THC Urine VISTA NEGATIVE (< 50 ng/mL); Vista UDS pH Range 5
--- NOTE | 2023-04-09 14:30 | HP.PCM.HOS_ITS ---
HPI - General General Date of Admission: 04/09/23 Date of Service: 04/09/23 Chief Complaint: altered mental status HPI Narrative IRASEMA CUTLER, is a 47 M with a PMH as outlined who presents via the ED on 04/09/2023 with a complaint of altered mental status. HE had a stroke back in October 2022 for which he received tPA. He was in the garden today and called his because he was feeling weak. He asked for a chair; when she came back with the chair, she found him obtunded. He is on aspirin, and didnt take it today. He was noted to have left sided weakness and some left sided deficits. He denied any worsening of the left sided weakness. On arrival in the ED, NIHSS was 8. He was given tenecteplase. says he was largely unresponsive prior to the EMS arriving. His last known well was just around 1pm. Vitals at time of review were pulse rate of 79, RR of 18 and temp of 97.3F, with him saturating at 95% on room air. CBC showed hb of 13.8, wbc of 12.1 and plaelets of 204. CHemistry was unremarkable, as well as ABGs. CT of the brain showed no acute intracranial pathology. He is being admitted to be managed for acute encephalopathy, to rule out a stroke. At time of review, patient had expressive aphasia and couldnt give much of a history. History was mainly taken from his who was at his bedside. [facility] Medical History Acute ischemic right MCA stroke Anxiety disorder CVA (cerebral vascular accident) DVT (deep venous thrombosis) GERD (gastroesophageal reflux disease) Obesity (BMI 30-39.9) Smoker TIA (transient ischemic attack) Tobacco dependence Vitamin D deficiency Home Medications Vitamin D3 5,000 iu PO BID Vitamin D deficiency 01/17/16 [History Last Taken 11/08/16] aspirin 81 mg chewable tablet 81 mg PO BREAKFAST #30 tabs 07/21/22 [Rx Last Taken Unknown] lisinopril 10 mg tablet 10 mg PO DAILY #30 tabs 07/21/22 [Rx Last Taken Unknown] rosuvastatin 40 mg tablet 40 mg PO DAILY 03/30/23 [History Last Taken Unknown] esomeprazole magnesium 40 mg capsule,delayed release 40 mg PO DAILY 04/09/23 [History Last Taken Unknown] Allergy/AdvReac Type Severity Reaction Status Date / Time cortisone Allergy Severe Shortness Verified 04/09/23 13:28 of breath bee venom protein (honey bee) Allergy Other Verified 04/09/23 14:55 [bees] Family History Father Heart disease Diabetes Surgical History History of ankle surgery History of removal of cyst Hx of arthrodesis Social History household members: significant other Smoking Status: Current every day smoker tobacco type: cigarettes and cigars Tobacco: How many years used: 47 second hand exposure: No alcohol intake: current alcohol intake frequency: a few times a month details: rarely substance use type: does not use what type of physical activity do you participate in: walking and other details: OT - PT armando/baptism: Mandaen seatbelt use: always ROS Review of Systems ROS Unobtainable: Denies due to encephalopathy Constitutional Constitutional: Reports fatigue, malaise and weakness; Denies anorexia, chills or fever(s) Eyes Eyes: Denies blurry vision, change in vision or double vision ENT HEENT: Denies dysphagia, headache(s) or nasal discharge Cardiovascular Cardiovascular: Denies dyspnea on exertion, edema, lightheadedness, orthopnea, paroxysmal nocturnal dyspnea, rapid heart rate or syncope Respiratory/Chest Respiratory/Chest: Denies cough, productive cough, shortness of breath at rest or shortness of breath with exertion Gastrointestinal Gastrointestinal: Denies abdominal pain, constipation, diarrhea, nausea or vomiting Genitourinary Genitourinary: Denies dysuria Musculoskeletal Musculoskeletal: Denies arthralgias Neurologic Neurologic: Reports confusion, disequilibrium, numbness and tingling; Denies dizziness, focal weakness, headache(s), paresthesias, seizure-like activity, seizures, syncope or tremor(s) Psychiatric Psychiatric: Denies anxiety Vital Signs Vital Signs Vital Signs: 04/09/23 13:28 04/09/23 13:48 04/09/23 13:59 Temperature 97.7 F L Temperature Source Temporal Pulse Rate 88 82 87 Respiratory Rate 22 H 18 18 Blood Pressure 142/77 H 144/86 H 127/83 H Blood Pressure Mean 98 105 97 Blood Pressure Source Blood Pressure Position Blood Pressure Location Pulse Ox 97 97 98 Oxygen Delivery Method Room Air Room Air Room Air 04/09/23 14:14 04/09/23 14:04 Temperature 97.6 F L Temperature Source Temporal Pulse Rate 79 Respiratory Rate 18 Blood Pressure 127/83 H Blood Pressure Mean Blood Pressure Source Monitor Blood Pressure Position Semi-Fowlers Blood Pressure Location Right Arm Pulse Ox 97 Oxygen Delivery Method Room Air Weight Weight: 285 lb 0.923 oz Body Mass Index (BMI) 39.7 Physical Exam Const alert Orientation / Consciousness: confused HEENT normocephalic and hearing grossly normal bilaterally Mouth: oral and palatal mucosa normal Eyes PERRL and EOMs intact bilaterally Neck no lymphadenopathy and supple Resp normal respiratory effort, no retractions, no use of accessory muscles and clear to auscultation bilaterally Cardio regular rate, regular rhythm, S1 normal heart sound, S2 normal heart sound and no murmurs GI normal to inspection, nondistended, normoactive bowel sounds, soft to palpation, non-tender and non-distended Extremity normal to inspection, full ROM and no clubbing, cyanosis or edema Neuro Neuro Narrative: alert, confused, disoriented, power in LUE and LLE is 2/5, moderately decreased sensation to light touch and pressure on left UE and LLE. NIHSS was ~ 8. NO visible mouth droop Sensorium / Orientation: awake and alert Psych Psych Narrative: flat affect Results Lab / Micro Data Result Diagrams: 04/10/23 05:12 04/10/23 05:12 Labs: Laboratory Results - last 24 hr 04/09/23 13:24: WBC 12.1 H, RBC 4.49 L, Hgb 13.8, Hct 41.4, MCV 92.2, MCH 30.7, MCHC 33.3, RDW Std Deviation 42.6, RDW Coeff of Francisca 12.8, Plt Count 204, MPV 10.0, Immature Gran % (Auto) 1.100 H, Neut % (Auto) 52.5, Lymph % (Auto) 31.5, Christian % (Auto) 10.0, Eos % (Auto) 4.1, Baso % (Auto) 0.8, Absolute Neuts (auto) 6.4, Absolute Lymphs (auto) 3.83, Nucleated RBC % 0 04/09/23 13:24: PT 13.4, INR 1.0, APTT 29.2 04/09/23 13:24: Sodium 138, Potassium 4.2, Chloride 106, Carbon Dioxide 25.0, Anion Gap 7, BUN 13, Creatinine 1.01, Estim Creat Clear Calc 96.30, Est GFR (MDRD) Af Amer 102, Est GFR (MDRD) Non-Af 84, BUN/Creatinine Ratio 12.9, Glucose 94, Calcium 9.0, Total Bilirubin 0.40, AST 32, ALT 33, Alkaline Phosphatase 76, Troponin I High Sens < 3 L, Total Protein 7.8, Albumin 3.3, Globulin 4.5 H, Albumin/Globulin Ratio 0.7 L 04/09/23 13:24: Ethyl Alcohol < 3.0 04/09/23 13:24: Ammonia 34.0 H 04/09/23 13:31: POC Glucose 93 04/09/23 13:45: Urine Color Yellow, Urine Clarity Clear, Urine pH 5.0, Ur Specific [place] 1.025, Urine Protein 15 H, Urine Glucose (UA) Normal, Urine Ketones 5 H, Urine Occult Blood Negative, Urine Nitrite Negative, Urine Bilirubin Negative, Urine Urobilinogen 4 H, Ur Leukocyte Esterase 25 H, Urine RBC 0 SEEN, Urine WBC 0 SEEN, Ur Squamous Epith Cells 0 SEEN, Urine Bacteria 0 SEEN, Hyaline Casts 0-5 SEEN, Urine Mucus 0 SEEN 04/09/23 13:45: Urine Opiates Screen NEGATIVE, Urine Methadone Screen NEGATIVE, Ur Barbiturates Screen NEGATIVE, Ur Phencyclidine Scrn NEGATIVE, Ur Amphetamines Screen NEGATIVE, MDMA (Ecstasy) Screen NEGATIVE, U Benzodiazepines Scrn NEGATIVE, Urine Cocaine Screen NEGATIVE, U Cannabinoids Screen NEGATIVE, Ur Drug Screen Comment ABG Data ABG results: ABG 04/09/23 13:55 Specimen Type ART Sample Site L Radial pH 7.41 Bicarbonate Actual 25.9 Total CO2 27 Base Excess 1 O2 Saturation 94 L ABG pCO2 40.8 ABG pO2 72 L [place] Test Positive O2 Delivery Device Room Air Radiology Impression Brain CT 04/09/23 13:32 IMPRESSION: Normal unenhanced CT scan of the brain. Electronically Signed: Chi Zeng MD at 13:57 EDT , Chest X-Ray 04/09/23 13:40 IMPRESSION: No acute abnormality is seen. Electronically Signed: Chi Zeng MD at 13:57 EDT , Assessment & Plan Assessment/Plan (1) Stroke-like symptoms: (2) Slurred speech: (3) Acute left-sided muscle weakness: PLAN: Plan #Acute left sided weakness and expressive aphasia, concerning for acute CVA * admit to ICU * patient last known well was ~ 1pm. Received tenecteplase on arrival in the ED. IT was administered at 14;14 * CT of the brain showed no evidence of stroke. CTA head and neck was normal and showed no large vessel occlusion * hold off on aspirin and plavix as patient received tenecteplase * high intensity statin * hold BP meds to allow for permissive hypertension * admit to ICU as he received tenecteplase * consult critical care * get MRI tomorrow 24 hours after tenecteplase * PT/OT consult. Fall precautions * #Hyperlipidemia: on statin. Check lipid panel #History of CVA: aspirin and plavix on hold due to patient receiving tenecteplase. #Hypertension; on lisinopril. Will hold. IV nicardipine prn DVT prophylaxis: SCDs. Hold anticoagulant as he received tPA Code status: full code Charges/Coding Visit Charges Inpatient E&M: 83316 Init Hosp L3
--- NOTE | 2023-04-09 15:23 | ECHOCS_ITS ---
Reason For Study: TIA/CVA Procedure This was a 2D Doppler, Color Flow transthoracic echocardiogram. Contrast injection was performed. Exam performed portable in ICU/CCU. Left Ventricle Normal left ventricle. The estimated ejection fraction is 55-60 %. Right Ventricle Normal right ventricle. Normal systolic function. Atria Normal left atrium. Normal right atrium. Mitral Valve The mitral valve is structurally normal. No prolapse or stenosis seen. No mitral valve insufficiency. Tricuspid Valve Normal tricuspid valve. No tricuspid valve insufficiency. Aortic Valve Normal aortic valve. Pulmonic Valve The pulmonic valve is not well visualized. Great Vessels Normal aortic root. Pericardium/Pleural No pericardial effusion. Medication Diluted definity 2.5ml given slow IV push to enhance endocardial definition. MMode/2D Measurements & Calculations LVIDd: 4.6 cm IVSd: 0.98 cm Ao root diam: 2.4 cm LVIDs: 3.1 cm LVPWd: 0.98 cm RVDd: 3.5 cm FS: 32.5 % LAV(MOD-bp): 29.1 ml LVAd ap4: 28.8 cm2 SV(MOD-sp4): 48.8 ml LAV(MOD-bp) Indexed: 11.9 ml/m2 LVLd ap4: 7.3 cm LAV(MOD-sp2): 28.6 ml EDV(MOD-sp4): 90.8 ml LAV(MOD-sp4): 23.6 ml EDV(sp4-el): 95.9 ml LVAs ap4: 17.8 cm2 LVLs ap4: 6.3 cm ESV(MOD-sp4): 41.9 ml ESV(sp4-el): 42.8 ml EF(MOD-sp4): 53.8 % EF(sp4-el): 55.4 % SV(sp4-el): 53.1 ml LA A4 area: 12.6 cm2 LA dimension(2D): 3.1 cm RA A4 area: 14.7 cm2 Time Measurements MV dec time: 0.19 sec Doppler Measurements & Calculations MV E max gilbert: 82.1 cm/sec Lat Peak E' Gilbert: 13.3 cm/sec Med Peak E' Gilbert: 11.0 cm/sec MV A max gilbert: 62.0 cm/sec E/E' lat: 6.2 E/E' med: 7.5 MV E/A: 1.3 MV dec slope: 424.6 cm/sec2 Ao V2 max: 151.3 cm/sec LV V1 max: 119.9 cm/sec Ao max P.2 mmHg LV V1 max P.7 mmHg Ao V2 mean: 100.5 cm/sec Ao mean P.8 mmHg Ao V2 VTI: 32.8 cm PA V2 max: 106.2 cm/sec ECHO/Echo Complete W/ Contrast Interpretation Summary The estimated ejection fraction is 55-60 %. Normal LV systolic function No significant change from prior echocardiogram on July 20, 2022. Ordering Physician: Milka Perkins Referring Physician: Annette Jackson Performed By: Shilpa Mon, JOHNATHAN, RVT
[2023-04-09 15:39] LABS: Reflex Troponin-HS? (from REC) Y
[2023-04-09 16:42] LABS: Troponin-I HS 4 pg/mL (3.0-78.0)
--- NOTE | 2023-04-09 17:32 | CASEMGMT ---
Addendum entered by Candida Bay 04/09/23 17:40: Pt and family live in a 2-story home w/one step to enter. [employer]. Pt has appt w/Dr Mendoza April 27 @ 8:30 AM. This was added in DC plan. Original Note: RN?CM?LAUNDRY SORTER?CM?to room to meet with patient for initial transition planning/care coordination?assessment.?RN?CM?introduced self and role at [facility].? Pt voices understanding and consents to?assessment?at this time.? Pt resting in bed in no distress at this time.? @ bedside. Pt is A/O at this time and answers all questions appropriately.?? Care providers, pharmacy, and demographics verified/updated at this time. PCP: Dr Jackson Specialists: Dr Mendoza-neurology [facility] [employer] Prescription Benefit:?Yes Living Will/HPOA:?Pt does not currently have LW/HCPOA LNOK: Myesha Living Arrangements: Lives w/ and 3 step-children. Pt has 2 children that live next door. Independent w/ADL's @ baseline and has been back to working since Nov. and pt share home mgnt tasks. Transportation:?Pt states drives self and states no transportation concerns at this time.? also drives. DME: States has the following DME:?CPAP thru [employer]. Has a walker available but does not use. ? No need for further DME at this time.? HHC/SNF: No hx of either. Went to [facility] for OP therapy after last stroke in Jun, 2022. Pt on bedrest until 1414 tomorrow. PT/OT evals pending. CM?to follow for discharge planning/needs.? Pt and voice no concerns/needs at this time.? Advised them to ask for?CM?if any questions/concerns/needs arise.? They voice understanding. PLAN:??TBD by progress w/therapy. PT/OT evals pending. Chyna WILDEN?RN?CM
[2023-04-09 20:38] LABS: Troponin-I HS 4 pg/mL (3.0-78.0)
[2023-04-09] MEDS: Cholecalciferol (Vit D3) 125 MCG CAPSULE (5,000 UNITS) PO (21:03)
[2023-04-09] MEDS: Atorvastatin Calcium 80 MG Tablet PO (21:03)
[2023-04-10] VITALS (25 sets, daily range): BP systolic 93–144; BP diastolic 47–99; PULSE 53–83; RESP 15–21; TEMP 36.1–36.6; O2SAT 93–100; BMI 38.5
[2023-04-10 05:35] LABS: Absolute Lymphocyte Count 2.51 X10^3/uL (0.83-4.51); Absolute Neutrophil Count 6.6 X10^3/uL (2.0-7.7); Basophil# 0.06 X10^3/uL; Basophil% 0.6 % (0-1); Eosinophil# 0.41 X10^3/uL; Eosinophils% 3.9 % (0-5); Hematocrit 38.5 % (40-54); Hemoglobin 12.9 g/dL (13.0-16.5); Lymphocyte # 2.51 X10^3/ul (0.83-4.51); Lymphocyte % 23.7 % (19-41); Mean Corp Hgb Conc 33.5 g/dL (32-36); Mean Corpuscular Hgb 31.1 pg (27.0-32.0); Mean Corpuscular Volume 92.8 fL (80-94); Mean Platelet Vol. 10.4 fl (6.2-12.0); Monocyte# 0.96 X10^3/uL; Monocyte% 9.1 % (0-10); NRBC Flagged by Analyzer 0 % (0-5); Neutrophil # 6.57 X10^3/uL (2.7-7.7); Platelet Count 201 K/mm3 (150-450); RBC Distribution Width CV 13.1 % (11.6-14.6); RBC Distribution Width SD 44.4 fl (35.1-43.9); Red Blood Count 4.15 M/mm3 (4.6-6.2); White Blood Count 10.6 K/mm3 (4.4-11.0)
[2023-04-10 05:57] LABS: Anion Gap 3 (5-15); BUN 10 mg/dL (7-18); BUN/Creat Ratio 13.4 RATIO (10-20); Calcium,Total 8.3 mg/dL (8.5-10.1); Chloride 109 mmol/L (98-107); Cholesterol 168 mg/dL (200); Creatinine, Serum 0.75 mg/dL (0.70-1.30); EST Glomerular Filtration Rate 119 mL/min (>60); Est Glom Filt Rate - Afr Amer 143 mL/min (>60); Estimated Creatinine Clearance 129.68 ml/min; Glucose 92 mg/dL (74-106); High Density Lipoprotein 28 mg/dL; Potassium 4.3 mmol/L (3.5-5.1); Sodium Level 140 mmol/L (136-145); Triglycerides 99 mg/dL; Very Low Density Lipoprotein 20 mg/dL (5-40)
--- NOTE | 2023-04-10 06:04 | CON.PCM.CC_ITS ---
Assessment & Plan Assessment/Plan (1) Acute left-sided muscle weakness: PLAN: Plan RECOMMENDATIONS: 1. Follow-up head imaging this afternoon. 2. Obtain echocardiogram. 3. PT/OT evaluations after follow-up imaging is complete. 4. Obtain neurology follow-up. 5. Encourage incentive spirometer use while in bed. IMPRESSIONS: 1. Questionable CVA status post tenecteplase The patient was initially admitted to the hospital after being found unresponsive by his . The patient had neurological deficits noted on presentation raising the concern for potential CVA. The patient had a similar presentation in June 2022 with unremarkable neurologic work-up. The patient did receive tenecteplase in the emergency department and was admitted to the ICU. Continue routine care post tenecteplase. Plan for repeat head imaging later this afternoon with plans for PT/OT evaluations afterwards. 2. History of hyperlipidemia/hypertension/obesity Complicates care, management, recovery and prognosis. Continue home medications as indicated. This note was generated with [employer] dictation software. It may contain incorrect words, spelling, and punctuation that were not noted in checking the note before signing. HPI Consult Data Date of Consult: 04/11/23 HPI Narrative Reason for Consultation: Encephalopathy HPI Narrative: The patient is a 47-year-old male, with a history as outlined below, who presented to the emergency department on April 09 with altered mental status. The patient was reportedly outside gardening when he became unresponsive. His subsequently called EMS. The patient had a similar episode in June 2022 while at work. At that time, there was concern for a stroke as well. The patient did receive tPA at that time. Subsequent MRI only demonstrated mild to moderate bilateral periventricular white matter chronic small vessel ischemic disease. He was diagnosed with hypertension at that time. The patient is currently being followed by Dr. Landeros of neurology on an outpatient basis. On presentation to the emergency department, the patient was noted to be afebrile hemodynamically stable. He was maintaining appropriate oxygen saturations on room air. Initial laboratory evaluation revealed no evidence of a leukocytosis. Coagulation profile was unrevealing. Chemistry profile was unremarkable. Urine analysis was unremarkable. Toxicology screen was negative. Initial CT head was unremarkable. Neurology consultation was obtained. No seizure activity was witnessed in the emergency department. Tenecteplase was felt to be indicated and was subsequently administered. The patient was then admitted to the medical intensive care unit for further management. This morning, the patient is back to his baseline and neurologically intact. He has no specific complaints. [facility] History Acute ischemic right MCA stroke Anxiety disorder CVA (cerebral vascular accident) DVT (deep venous thrombosis) GERD (gastroesophageal reflux disease) Obesity (BMI 30-39.9) Smoker TIA (transient ischemic attack) Tobacco dependence Vitamin D deficiency Home Medications Vitamin D3 5,000 iu PO BID Vitamin D deficiency 01/17/16 [History Last Taken 11/08/16] aspirin 81 mg chewable tablet 81 mg PO BREAKFAST #30 tabs 07/21/22 [Rx Last Taken Unknown] lisinopril 10 mg tablet 10 mg PO DAILY #30 tabs 07/21/22 [Rx Last Taken Unknown] rosuvastatin 40 mg tablet 40 mg PO DAILY 03/30/23 [History Last Taken Unknown] esomeprazole magnesium 40 mg capsule,delayed release 40 mg PO DAILY 04/09/23 [History Last Taken Unknown] Allergy/AdvReac Type Severity Reaction Status Date / Time cortisone Allergy Severe Shortness Verified 04/09/23 13:28 of breath bee venom protein (honey bee) Allergy Other Verified 04/09/23 14:55 [bees] Family History Father Heart disease Diabetes Surgical History History of ankle surgery History of removal of cyst Hx of arthrodesis Social History household members: significant other Smoking Status: Current every day smoker tobacco type: cigarettes and cigars Tobacco: How many years used: 47 second hand exposure: No alcohol intake: current alcohol intake frequency: a few times a month details: rarely substance use type: does not use what type of physical activity do you participate in: walking and other details: OT - PT armando/jainism: Jehovah'S Witness seatbelt use: always ROS ROS Narrative 10 systems were reviewed with pertinent positives as noted in the HPI above. Physical Exam Const alert, oriented x3 and no apparent distress General Appearance: cooperative HEENT normocephalic, head/scalp atraumatic and moist oral mucous membranes Eyes PERRL, EOMs intact bilaterally and conjunctivae normal Neck supple General: trachea midline Chest inspection of chest normal Resp normal respiratory effort Auscultation: Negative for rales, rhonchi or wheezes Cardio regular rate and regular rhythm GI normal to inspection, nondistended, normoactive bowel sounds Extremity no clubbing, cyanosis or edema Skin no rashes or lesions noted Neuro oriented x3, CN's II-XII intact bilaterally and moves all extremities Psych cooperative and affect normal Lab / Micro Data Result Diagrams: 04/10/23 05:12 04/10/23 05:12 Labs: Laboratory Results - last 24 hr 04/09/23 13:24: WBC 12.1 H, RBC 4.49 L, Hgb 13.8, Hct 41.4, MCV 92.2, MCH 30.7, MCHC 33.3, RDW Std Deviation 42.6, RDW Coeff of Francisca 12.8, Plt Count 204, MPV 10.0, Immature Gran % (Auto) 1.100 H, Neut % (Auto) 52.5, Lymph % (Auto) 31.5, [place] % (Auto) 10.0, Eos % (Auto) 4.1, Baso % (Auto) 0.8, Absolute Neuts (auto) 6.4, Absolute Lymphs (auto) 3.83, Nucleated RBC % 0 04/09/23 13:24: PT 13.4, INR 1.0, APTT 29.2 04/09/23 13:24: Sodium 138, Potassium 4.2, Chloride 106, Carbon Dioxide 25.0, Anion Gap 7, BUN 13, Creatinine 1.01, Estim Creat Clear Calc 96.30, Est GFR (MDRD) Af Amer 102, Est GFR (MDRD) Non-Af 84, BUN/Creatinine Ratio 12.9, Glucose 94, Calcium 9.0, Total Bilirubin 0.40, AST 32, ALT 33, Alkaline Phosphatase 76, Troponin I High Sens < 3 L, Total Protein 7.8, Albumin 3.3, Globulin 4.5 H, Albumin/Globulin Ratio 0.7 L 04/09/23 13:24: Ethyl Alcohol < 3.0 04/09/23 13:24: Ammonia 34.0 H 04/09/23 13:31: POC Glucose 93 04/09/23 13:45: Urine Color Yellow, Urine Clarity Clear, Urine pH 5.0, Ur Specific [place] 1.025, Urine Protein 15 H, Urine Glucose (UA) Normal, Urine Ketones 5 H, Urine Occult Blood Negative, Urine Nitrite Negative, Urine Bilirubin Negative, Urine Urobilinogen 4 H, Ur Leukocyte Esterase 25 H, Urine RBC 0 SEEN, Urine WBC 0 SEEN, Ur Squamous Epith Cells 0 SEEN, Urine Bacteria 0 SEEN, Hyaline Casts 0-5 SEEN, Urine Mucus 0 SEEN 04/09/23 13:45: Urine Opiates Screen NEGATIVE, Urine Methadone Screen NEGATIVE, Ur Barbiturates Screen NEGATIVE, Ur Phencyclidine Scrn NEGATIVE, Ur Amphetamines Screen NEGATIVE, MDMA (Ecstasy) Screen NEGATIVE, U Benzodiazepines Scrn NEGATIVE, Urine Cocaine Screen NEGATIVE, U Cannabinoids Screen NEGATIVE, Ur Drug Screen Comment 04/09/23 16:15: Troponin I High Sens 4 04/09/23 20:09: Troponin I High Sens 4 04/10/23 05:12: WBC 10.6, RBC 4.15 L, Hgb 12.9 L, Hct 38.5 L, MCV 92.8, MCH 31.1, MCHC 33.5, RDW Std Deviation 44.4 H, RDW Coeff of Francisca 13.1, Plt Count 201, MPV 10.4, Immature Gran % (Auto) 0.700, Neut % (Auto) 62.0, Lymph % (Auto) 23.7, [place] % (Auto) 9.1, Eos % (Auto) 3.9, Baso % (Auto) 0.6, Absolute Neuts (auto) 6.6, Absolute Lymphs (auto) 2.51, Nucleated RBC % 0 04/10/23 05:12: Sodium 140, Potassium 4.3, Chloride 109 H, Carbon Dioxide 28.0, Anion Gap 3 L, BUN 10, Creatinine 0.75, Estim Creat Clear Calc 129.68, Est GFR (MDRD) Af Amer 143, Est GFR (MDRD) Non-Af 119, BUN/Creatinine Ratio 13.4, Glucose 92, Calcium 8.3 L, Triglycerides 99, Cholesterol 168, LDL Cholesterol 120, VLDL Cholesterol 20, HDL Cholesterol 28 L ABG Data ABG results: ABG 04/09/23 13:55 Specimen Type ART Sample Site L Radial pH 7.41 Bicarbonate Actual 25.9 Total CO2 27 Base Excess 1 O2 Saturation 94 L ABG pCO2 40.8 ABG pO2 72 L [place] Test Positive O2 Delivery Device Room Air Rhythm Strip Rhythm Strip: Sinus Rhythm Rate: 83 Ectopy: PVC(s) Radiology Impression Brain CT 04/09/23 13:32 IMPRESSION: Normal unenhanced CT scan of the brain. Electronically Signed: Chi Zeng MD at 13:57 EDT , Chest X-Ray 04/09/23 13:40 IMPRESSION: No acute abnormality is seen. Electronically Signed: Chi Zeng MD at 13:57 EDT , Head/Neck CTA 04/09/23 13:59 IMPRESSION: Normal CTA Head and neck with contrast. N.B. : The above Results were Read Back by Chi Zeng MD to Deysi Fenton and understanding confirmed on 04/09/2023 14:28:41 (ET). Electronically Signed: Cih Zeng MD at 14:30 EDT , ADDENDUM: 04/09/23 1437 IMPRESSION: Normal CTA Head and neck with contrast. N.B. : The above Results were Read Back by Chi Zeng MD to Deysi Fenton and understanding confirmed on 04/09/2023 14:28:41 (ET). Electronically Signed: Chi Zeng MD at 14:30 EDT , Charges/Coding Visit Charges Inpatient E&M: 28004 Init Hosp L3
--- NOTE | 2023-04-10 07:40 | PCM.PN.HOSP ---
Subjective Subjective Feels better. Still with left sided weakness. Yesterday he was out doing yard work. Objective Data Objective Data Vital Signs: Vital Signs Temp Pulse Resp BP Pulse Ox O2 Del Method O2 Flow Rate 36.4 C L 70 21 H 109/67 100 Nasal Cannula 2 04/10/23 02:59 04/10/23 07:00 04/10/23 07:00 04/10/23 07:00 04/10/23 07:00 04/10/23 07:00 04/10/23 07:00 Oxygen Flow Rate (L/min) 2 Oxygen Delivery Method Nasal Cannula Weight: 124.9 kg Body Mass Index (BMI) 38.5 Intake & Output: Intake and Output for Last 24 Hours 04/08/23 04/09/23 04/10/23 23:59 23:59 23:59 Intake Total 686.66 / 686.66 0 / 0 Output Total 350 / 1000 1075 / 1075 Balance 336.66 / -313.34 -1075 / -1075 Lab / Micro Data Result Diagrams: 04/10/23 05:12 04/10/23 05:12 Labs: Laboratory Results - last 24 hr 04/09/23 13:24: WBC 12.1 H, RBC 4.49 L, Hgb 13.8, Hct 41.4, MCV 92.2, MCH 30.7, MCHC 33.3, RDW Std Deviation 42.6, RDW Coeff of [place]isc[place] 12.8, Plt Count 204, MPV 10.0, Immature Gran % (Auto) 1.100 H, Neut % (Auto) 52.5, Lymph % (Auto) 31.5, [place] % (Auto) 10.0, Eos % (Auto) 4.1, Baso % (Auto) 0.8, Absolute Neuts (auto) 6.4, Absolute Lymphs (auto) 3.83, Nucleated RBC % 0 04/09/23 13:24: PT 13.4, INR 1.0, APTT 29.2 04/09/23 13:24: Sodium 138, Potassium 4.2, Chloride 106, Carbon Dioxide 25.0, Anion Gap 7, BUN 13, Creatinine 1.01, Estim Creat Clear Calc 96.30, Est GFR (MDRD) Af Amer 102, Est GFR (MDRD) Non-Af 84, BUN/Creatinine Ratio 12.9, Glucose 94, Calcium 9.0, Total Bilirubin 0.40, AST 32, ALT 33, Alkaline Phosphatase 76, Troponin I High Sens < 3 L, Total Protein 7.8, Albumin 3.3, Globulin 4.5 H, Albumin/Globulin Ratio 0.7 L 04/09/23 13:24: Ethyl Alcohol < 3.0 04/09/23 13:24: Ammonia 34.0 H 04/09/23 13:31: POC Glucose 93 04/09/23 13:45: Urine Color Yellow, Urine Clarity Clear, Urine pH 5.0, Ur Specific [place] 1.025, Urine Protein 15 H, Urine Glucose (UA) Normal, Urine Ketones 5 H, Urine Occult Blood Negative, Urine Nitrite Negative, Urine Bilirubin Negative, Urine Urobilinogen 4 H, Ur Leukocyte Esterase 25 H, Urine RBC 0 SEEN, Urine WBC 0 SEEN, Ur Squamous Epith Cells 0 SEEN, Urine Bacteria 0 SEEN, Hyaline Casts 0-5 SEEN, Urine Mucus 0 SEEN 04/09/23 13:45: Urine Opiates Screen NEGATIVE, Urine Methadone Screen NEGATIVE, Ur Barbiturates Screen NEGATIVE, Ur Phencyclidine Scrn NEGATIVE, Ur Amphetamines Screen NEGATIVE, MDMA (Ecstasy) Screen NEGATIVE, U Benzodiazepines Scrn NEGATIVE, Urine Cocaine Screen NEGATIVE, U Cannabinoids Screen NEGATIVE, Ur Drug Screen Comment 04/09/23 16:15: Troponin I High Sens 4 04/09/23 20:09: Troponin I High Sens 4 04/10/23 05:12: WBC 10.6, RBC 4.15 L, Hgb 12.9 L, Hct 38.5 L, MCV 92.8, MCH 31.1, MCHC 33.5, RDW Std Deviation 44.4 H, RDW Coeff of Francisca 13.1, Plt Count 201, MPV 10.4, Immature Gran % (Auto) 0.700, Neut % (Auto) 62.0, Lymph % (Auto) 23.7, [place] % (Auto) 9.1, Eos % (Auto) 3.9, Baso % (Auto) 0.6, Absolute Neuts (auto) 6.6, Absolute Lymphs (auto) 2.51, Nucleated RBC % 0 04/10/23 05:12: Sodium 140, Potassium 4.3, Chloride 109 H, Carbon Dioxide 28.0, Anion Gap 3 L, BUN 10, Creatinine 0.75, Estim Creat Clear Calc 129.68, Est GFR (MDRD) Af Amer 143, Est GFR (MDRD) Non-Af 119, BUN/Creatinine Ratio 13.4, Glucose 92, Calcium 8.3 L, Triglycerides 99, Cholesterol 168, LDL Cholesterol 120, VLDL Cholesterol 20, HDL Cholesterol 28 L ABG Data ABG results: ABG 04/09/23 13:55 Specimen Type ART Sample Site L Radial pH 7.41 Bicarbonate Actual 25.9 Total CO2 27 Base Excess 1 O2 Saturation 94 L ABG pCO2 40.8 ABG pO2 72 L [place] Test Positive O2 Delivery Device Room Air Radiography Diagnostic Testing: Radiology Impression Brain CT 04/09/23 13:32 IMPRESSION: Normal unenhanced CT scan of the brain. Electronically Signed: Chi Zeng MD at 13:57 EDT , Chest X-Ray 04/09/23 13:40 IMPRESSION: No acute abnormality is seen. Electronically Signed: Chi Zeng MD at 13:57 EDT , Head/Neck CTA 04/09/23 13:59 IMPRESSION: Normal CTA Head and neck with contrast. N.B. : The above Results were Read Back by Chi Zeng MD to Deysi Fenton and understanding confirmed on 04/09/2023 14:28:41 (ET). Electronically Signed: Chi Zeng MD at 14:30 EDT , ADDENDUM: 04/09/23 1437 IMPRESSION: Normal CTA Head and neck with contrast. N.B. : The above Results were Read Back by Chi Zeng MD to Deysi Fenton and understanding confirmed on 04/09/2023 14:28:41 (ET). Electronically Signed: Chi Zeng MD at 14:30 EDT , Rhythm Strip Rhythm Strip: Sinus Rhythm Rate: 83 Ectopy: PVC(s) Physical Exam Const alert and no apparent distress HEENT head/scalp atraumatic and moist oral mucous membranes Resp normal respiratory effort, no retractions, no use of accessory muscles and clear to auscultation bilaterally Cardio regular rate, regular rhythm, S1 normal heart sound and S2 normal heart sound GI normal to inspection, nondistended, normoactive bowel sounds, soft to palpation, non-tender and non-distended Neuro no focal motor deficits and no sensory deficits noted Sensorium / Orientation: awake Assessment & Plan Assessment/Plan (1) Acute CVA (cerebrovascular accident): PLAN: Suspected given Acute left sided weakness and expressive aphasia admit to ICU patient last known well was ~ 1300 04/09 Received tenecteplase on arrival in the ED. IT was administered at 1414 CT of the brain showed no evidence of stroke. CTA head and neck was normal and showed no large vessel occlusion hold off on aspirin and plavix as patient received tenecteplase high intensity statin hold BP meds to allow for permissive hypertension Check MRI brain, 2d echo, then consult [facility] teleneurology PLAN: Plan Chronic conditions: Hyperlipidemia: on statin. Check lipid panel History of CVA: ASA on hold as stated above Hypertension; on lisinopril. Will hold. IV nicardipine prn DVT prophylaxis: SCDs. Hold anticoagulant as he received tPA Charges/Coding Visit Charges Inpatient E&M: 42607 Subs Hosp L3
[2023-04-10] MEDS: 0.9% Normal Saline 1,000 ML 100 ML IV (07:41)
[2023-04-10] MEDS: Cholecalciferol (Vit D3) 125 MCG CAPSULE (5,000 UNITS) PO ×2 (09:24→21:40)
[2023-04-10] MEDS: Pantoprazole Sodium 40 MG Tablet PO (09:24)
--- NOTE | 2023-04-10 12:00 | MRI_ITS ---
STUDY: MRI BRAIN WITHOUT CONTRAST REASON FOR EXAM: Male, 47 years old. neuro deficits TECHNIQUE: Standardized multiplanar fat and water weighted pulse sequences were obtained. COMPARISON: CT head 04/09/2023. BRAIN AND EXTRA-AXIAL SPACES: No intracranial mass, mass effect, or midline shift. No hemorrhage, territorial infarct or acute ischemia. Mild T2 signal hyperintensities in the white matter consistent with mild microvascular ischemia. Ventricles are normal in size. Basal cisterns are unremarkable. SELLA: Pituitary gland is normal in height. AUDITORY SYSTEM: Unremarkable. BONES/JOINTS: Unremarkable. SINUSES: Unremarkable as visualized. Clear. MASTOID AIR CELLS: T2 signal hyperintensity in the left mastoid sinus with a fluid level posteriorly. Findings are suspicious for acute mastoid inflammation. ORBITS: Unremarkable as visualized. VASCULATURE: Normal flow voids in the major intracranial circulation. MRI/Brain without Contrast IMPRESSION: 1. No acute findings. 2. Suspect acute left mastoiditis. 3. Mild chronic microvascular ischemic changes. Electronically Signed: Mary Reeves MD at 20:19 EDT Reading Location ID and State: [id number] / Tel , Service support ,
[2023-04-10] MEDS: Atorvastatin Calcium 80 MG Tablet PO (21:40)
[2023-04-11] VITALS (11 sets, daily range): BP systolic 105–144; BP diastolic 56–107; PULSE 57–75; RESP 18–22; TEMP 36.3–36.6; O2SAT 92–97; BMI 38.5
--- NOTE | 2023-04-11 06:35 | PN.CC_ITS ---
Assessment & Plan Assessment/Plan (1) Acute left-sided muscle weakness: PLAN: Plan RECOMMENDATIONS: 1. Encourage incentive spirometer use and mobilize patient as tolerated. 2. PT/OT evaluations. 3. Neurology follow-up on outpatient basis. 4. The patient is medically stable for transfer out of the intensive care unit. We will sign off from a critical care perspective. IMPRESSIONS: 1. Questionable CVA status post tenecteplase The patient was initially admitted to the hospital after being found unresponsive by his . The patient had neurological deficits noted on presentation raising the concern for potential CVA. The patient had a similar presentation in June 2022 with unremarkable neurologic work-up. The patient did receive tenecteplase in the emergency department and was admitted to the ICU. However, subsequent MRI brain did not demonstrate any acute findings that would account for his presenting symptoms. Therefore, the etiology remains unclear. Will defer additional work-up per neurology. 2. History of hyperlipidemia/hypertension/obesity Complicates care, management, recovery and prognosis. Continue home medications as indicated. This note was generated with [employer] dictation software. It may contain incorrect words, spelling, and punctuation that were not noted in checking the note before signing. Subjective Subjective The patient was seen and examined at the bedside this morning. Events from the last 24 hours have been reviewed. The patient is currently afebrile, hemodynamically stable and maintaining appropriate oxygen saturations on room air. The patient had an uneventful night without any specific complaints this morning. Brain MRI yesterday was unremarkable. Objective Data Objective Data The patient's most recent lab work, culture data and imaging studies have all been personally reviewed. Surface echocardiogram demonstrated normal LV size and function with an ejection fraction of 55 to 60%. Vital Signs: Vital Signs Temp Pulse Resp BP Pulse Ox O2 Del Method O2 Flow Rate 97.9 F 61 21 H 128/74 H 94 Room Air 2 04/11/23 04:00 04/11/23 06:00 04/11/23 06:00 04/11/23 06:00 04/11/23 06:00 04/11/23 06:00 04/10/23 07:00 Oxygen Flow Rate (L/min) 2 Oxygen Delivery Method Room Air Weight: 275 lb 5.718 oz Body Mass Index (BMI) 38.5 Intake & Output: Intake and Output for Last 24 Hours 04/09/23 04/10/23 04/11/23 23:59 23:59 23:59 Intake Total 686.66 / 686.66 3063.33 / 3063.33 Output Total 350 / 1000 1575 / 1575 Balance 336.66 / -313.34 1488.33 / 1488.33 Lab / Micro Data Attestation: I reviewed the patient's lab results. Result Diagrams: 04/10/23 05:12 04/10/23 05:12 Radiography Diagnostic Testing: Radiology Impression Echocardiogram 04/09/23 15:23 Interpretation Summary The estimated ejection fraction is 55-60 %. Normal LV systolic function No significant change from prior echocardiogram on July 20, 2022. Ordering Physician: Milka Perkins Referring Physician: Annette Jackson Performed By: Shilpa Mon, RDCS, RVT Brain MRI 04/10/23 12:00 IMPRESSION: 1. No acute findings. 2. Suspect acute left mastoiditis. 3. Mild chronic microvascular ischemic changes. Electronically Signed: Mary Reeves MD at 20:19 EDT Reading Location ID and State: [id number] / Tel , Service support , Rhythm Strip Rhythm Strip: Sinus Rhythm Rate: 83 Ectopy: PVC(s) Physical Exam Const alert, oriented x3 and no apparent distress General Appearance: cooperative HEENT normocephalic, head/scalp atraumatic and moist oral mucous membranes Eyes PERRL, EOMs intact bilaterally and conjunctivae normal Neck supple General: trachea midline Chest inspection of chest normal Resp normal respiratory effort Auscultation: Negative for rales, rhonchi or wheezes Cardio regular rate and regular rhythm GI normal to inspection, nondistended, normoactive bowel sounds Extremity no clubbing, cyanosis or edema Skin no rashes or lesions noted Neuro oriented x3, CN's II-XII intact bilaterally and moves all extremities Psych cooperative and affect normal Charges/Coding Visit Charges Inpatient E&M: 15302 Subs Hosp L2
--- NOTE | 2023-04-11 06:58 | PN.HOSP_ITS ---
Reason for Visit Reason for Visit: Diagnoses Cerebral infarction, unspecified (04/09/23) Muscle weakness (generalized) (04/09/23) Unspecified symptoms and signs involving the nervous system (04/09/23) Slurred speech (04/09/23) Subjective Subjective No events overnight. Feeling well. Objective Data Objective Data Vital Signs: Vital Signs Temp Pulse Resp BP Pulse Ox O2 Del Method O2 Flow Rate 36.6 C 61 21 H 128/74 H 94 Room Air 2 04/11/23 04:00 04/11/23 06:00 04/11/23 06:00 04/11/23 06:00 04/11/23 06:00 04/11/23 06:00 04/10/23 07:00 Oxygen Flow Rate (L/min) 2 Oxygen Delivery Method Room Air Weight: 124.9 kg Body Mass Index (BMI) 38.5 Intake & Output: Intake and Output for Last 24 Hours 04/09/23 04/10/23 04/11/23 23:59 23:59 23:59 Intake Total 686.66 / 686.66 3063.33 / 3063.33 Output Total 350 / 1000 1575 / 1575 Balance 336.66 / -313.34 1488.33 / 1488.33 Lab / Micro Data Result Diagrams: 04/10/23 05:12 04/10/23 05:12 Radiography Diagnostic Testing: Radiology Impression Echocardiogram 04/09/23 15:23 Interpretation Summary The estimated ejection fraction is 55-60 %. Normal LV systolic function No significant change from prior echocardiogram on July 20, 2022. Ordering Physician: Milka Perkins Referring Physician: Annette Jackson Performed By: Shilpa Mon, RDCS, RVT Brain MRI 04/10/23 12:00 IMPRESSION: 1. No acute findings. 2. Suspect acute left mastoiditis. 3. Mild chronic microvascular ischemic changes. Electronically Signed: Mary Reeves MD at 20:19 EDT Reading Location ID and State: [id number] / Tel , Service support , Rhythm Strip Rhythm Strip: Sinus Rhythm Rate: 83 Ectopy: PVC(s) Physical Exam Const alert and no apparent distress HEENT head/scalp atraumatic and moist oral mucous membranes Extremity normal to inspection and no clubbing, cyanosis or edema Neuro oriented x3, moves all extremities and no focal motor deficits Motor Exam: strength 5/5 throughout Assessment & Plan Assessment/Plan (1) Acute CVA (cerebrovascular accident): PLAN: Suspected given Acute left sided weakness and expressive aphasia admit to ICU patient last known well was ~ 1300 04/09 Received tenecteplase on arrival in the ED. IT was administered at 1414 CT of the brain showed no evidence of stroke. CTA head and neck was normal and showed no large vessel occlusion hold off on aspirin and plavix as patient received tenecteplase high intensity statin hold BP meds to allow for permissive hypertension Echo shows an EF 55-60% MRI brain showed chronic microvascular Discussed with neurology, recommending an EEG to rule out seizure though its not clear if there ever was any tonic-clonic activity is as unwitnessed. Also recommend dual antiplatelet therapy with aspirin and clopidogrel. Then to do that for 21 days and then to have clopidogrel monotherapy. PLAN: Plan Chronic conditions: * Hyperlipidemia: on statin. Check lipid panel * History of CVA: ASA on hold as stated above * Hypertension; on lisinopril. Will hold. IV nicardipine prn DVT prophylaxis: SCDs. Hold anticoagulant as he received tPA Charges/Coding Visit Charges Inpatient E&M: 88368 Subs Hosp L2
[2023-04-11] MEDS: Pantoprazole Sodium 40 MG Tablet PO (08:53)
[2023-04-11] MEDS: Cholecalciferol (Vit D3) 125 MCG CAPSULE (5,000 UNITS) PO (08:53)
[2023-04-11] MEDS: Clopidogrel Bisulfate 75 MG Tablet PO (11:51)
--- NOTE | 2023-04-11 13:48 | DCINST_ITS ---
Discharge Instructions Diet Discharge Diet: Low fat / Low cholesterol Activity Return to work on:: 04/13/23 (Wednesday night) Dressing / Incision Call your doctor if you observe: - (unilateral weakness. ) Follow Up Care Test Results: Test results from this visit will be discussed in further detail at your follow- up appointment, if applicable. Discharge Plan Admission Admit Date/Time: 04/09/23 14:39 Primary Reason for Your Visit: stroke Attending Provider: Jp Gray Primary Care Provider: Annette Jackson Consulting Providers: Milka Perkins ; Shine Cage ; Rashid Howard ; Shine Mendoza ; Marco Barlow ; Radha Lin OUTSOLE SKIVER Instructions Additional Instructions / Restrictions: You presented with left sided weakness. It was concerning for a stroke and you received tenecteplase (clot buster medication). The MRI did not show evidence of a stroke, but that does not rule out a stroke, it may have been eradicated by the tenecteplase. You are to take aspirin AND clopidogrel (Plavix) for 3 weeks, then stop aspirin and continue clopidogrel. Discharge Orders/Prescriptions Prescriptions: New clopidogrel 75 mg Tablet 75 mg PO DAILY Qty: 30 0RF Continued rosuvastatin 40 mg tablet 40 mg PO DAILY Vitamin D3 5,000 iu PO BID Label Comments: supplement lisinopril 10 mg Tablet 10 mg PO DAILY Qty: 30 0RF esomeprazole magnesium 40 mg capsule,delayed release(DR/EC) 40 mg PO DAILY Label Comments: TAKE 1 CAPSULE BY MOUTH ONCE DAILY aspirin 81 mg Tablet,Chewable 81 mg PO BREAKFAST Qty: 30 0RF Rx Instructions: stop taking May 02 and continue taking clopidogrel Referrals / Follow Up: Annette Jackson DO [Primary Care Provider] - Jose Luis Camp DO [Med Staff - Gas Plant Operator] - (next scheduled appointment) Raffaele Callahan MD [Non-Staff -Ordering Privileges] - 04/27/23 8:30 am Disposition Disposition (needs filled in before D/C Order can be placed): Home, Self Care
--- NOTE | 2023-04-11 13:55 | DS.PCM_ITS ---
Providers Date of Admission: 04/09/23 Primary Care Physician: Dr. Annette Jackson, DO Consultations 04/09/23 15:23 Consult: Multi Sensor Operator / Pulmonary Medicine Routine Consulting Provider: Pulmonary Medicine brenda [place] Reason for Consult: stroke for thrombolytic EMERGENT Consult: Yes MD Notified: Yes Date Notified: 04/09/23 Time Notified: 14:45 Method of Notification: Text Reason For Visit: ACUTE ENCEPHALOPATHY, POST TENECTAPLASE FOR Diagnosis Discharge Diagnosis (1) Acute CVA (cerebrovascular accident): Status: Acute Code(s): I63.9 - Cerebral infarction, unspecified Plan: Suspected given Acute left sided weakness and expressive aphasia admit to ICU patient last known well was ~ 1300 04/09 Received tenecteplase on arrival in the ED. IT was administered at 1414 CT of the brain showed no evidence of stroke. CTA head and neck was normal and showed no large vessel occlusion hold off on aspirin and plavix as patient received tenecteplase high intensity statin hold BP meds to allow for permissive hypertension Echo shows an EF 55-60% MRI brain showed chronic microvascular Discussed with neurology, recommending an EEG to rule out seizure though its not clear if there ever was any tonic-clonic activity is as unwitnessed. Also recommend dual antiplatelet therapy with aspirin and clopidogrel. Then to do that for 21 days and then to have clopidogrel monotherapy. Plan Chronic conditions: * Hyperlipidemia: on statin. Check lipid panel * History of CVA: ASA on hold as stated above * Hypertension; on lisinopril. Will hold. IV nicardipine prn DVT prophylaxis: SCDs. Hold anticoagulant as he received tPA Medications at Discharge Home Medications Vitamin D3 5,000 iu PO BID Vitamin D deficiency 01/17/16 lisinopril 10 mg tablet 10 mg PO DAILY #30 tabs 07/21/22 rosuvastatin 40 mg tablet 40 mg PO DAILY 03/30/23 esomeprazole magnesium 40 mg capsule,delayed release 40 mg PO DAILY 04/09/23 aspirin 81 mg chewable tablet 81 mg PO BREAKFAST #30 tabs 04/11/23 clopidogrel 75 mg tablet 75 mg PO DAILY #30 tabs 04/11/23 Hospital Course Operations None Procedures 2-D Echocardiogram Summary of Care Provided Minutes Spent on Discharge: 35 Hospital Course: 47-year-old male with a history of stroke presents with left-sided weakness. Concern was for stroke and patient did receive tenecteplase. Symptoms did r esolve. Subsequent MRI did not show any evidence of a stroke. Patient was seen by [facility] teleneurology who recommend 3 weeks of aspirin and clopidogrel and then to drop the aspirin and continue with clopidogrel. Patient's cholesterol panel was okay and patient was taking rosuvastatin prior and will continue with that upon discharge. Patient is otherwise doing well. Neurology has some concerns that since his episode was unwitnessed if there is a possibility of a seizure. Patient did have an EEG but the results of which are still pending. Patient will be discharged today. Patient will be able to return to his work on the and that evening. 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 Weight / BMI Weight Weight: 124.9 kg Body Mass Index (BMI) 38.5 ABG / Lab / Microbiology Data Result Diagrams: 04/10/23 05:12 04/10/23 05:12 Radiography Diagnostic Testing: Radiology Impression Brain MRI 04/10/23 12:00 IMPRESSION: 1. No acute findings. 2. Suspect acute left mastoiditis. 3. Mild chronic microvascular ischemic changes. Electronically Signed: Mary Reeves MD at 20:19 EDT Reading Location ID and State: [id number] / Tel , Service support , D/C Instructions Discharge Diet: Low fat / Low cholesterol Return to work on: 04/13/23 (Wednesday night) Call your doctor if you observe: - (unilateral weakness. ) Meaningful Use Info Meaningful Use Diagnoses (Choose all that apply): Ischemic CVA CVA Therapy Assessed for PT,OT and/or ST?: Yes Ischemic Stroke Antithrombotic order at d/c?: Yes Dx of Atrial fib/flutter?: No Anticoagulant at discharge?: No Reason anticoagulant not ordered: Treatment not Indicated Statins at discharge?: Yes Primary Dx Acute Ischemic CVA?: Yes IV thrombolytic ordered during stay?: Yes Discharge Plan Admission Admit Date/Time: 04/09/23 14:39 Primary Reason for Your Visit: stroke Attending Provider: Jp Gray Primary Care Provider: Annette Jackson Consulting Providers: Milka Perkins ; Shine Cage ; Rashid Howard ; Shine Mendoza ; Marco Barlow ; Radha Lin OPERATING SYSTEM PROGRAMMER Instructions Additional Instructions / Restrictions: You presented with left sided weakness. It was concerning for a stroke and you received tenecteplase (clot buster medication). The MRI did not show evidence of a stroke, but that does not rule out a stroke, it may have been eradicated by the tenecteplase. You are to take aspirin AND clopidogrel (Plavix) for 3 weeks, then stop aspirin and continue clopidogrel. Follow up with Dr. Callahan at your next scheduled appointment to review the results of the EEG as well as this most recent hospitalization. Discharge Orders/Prescriptions Prescriptions: New clopidogrel 75 mg Tablet 75 mg PO DAILY Qty: 30 0RF Continued rosuvastatin 40 mg tablet 40 mg PO DAILY Vitamin D3 5,000 iu PO BID Label Comments: supplement lisinopril 10 mg Tablet 10 mg PO DAILY Qty: 30 0RF esomeprazole magnesium 40 mg capsule,delayed release(DR/EC) 40 mg PO DAILY Label Comments: TAKE 1 CAPSULE BY MOUTH ONCE DAILY aspirin 81 mg Tablet,Chewable 81 mg PO BREAKFAST Qty: 30 0RF Rx Instructions: stop taking May 02 and continue taking clopidogrel Referrals / Follow Up: Annette Jackson DO [Primary Care Provider] - Jose Luis Camp DO [Med Staff - Hospital Education Coordinator] - (next scheduled appointment) Raffaele Callahan MD [Non-Staff -Ordering Privileges] - 04/27/23 8:30 am Disposition Disposition (needs filled in before D/C Order can be placed): Home, Self Care Charges/Coding Visit Charges Inpatient E&M: 19088 Disch Hosp >30min
== END 2023-04-11 14:38 | disposition home or self-care (01) | DRG 62 ==
LOC: ED 14:45 → ICU 15:09
PROVIDERS: Admitting Provider Student in an Organized Health Care Education/Training Program; Emergency Provider Emergency Medicine; PCP Family Medicine
DX: I63.9 Cerebral infarction, unspecified (principal); G81.94 Hemiplegia, unspecified affecting left nondominant side; R47.01 Aphasia; G47.33 Obstructive sleep apnea (adult) (pediatric); E78.5 Hyperlipidemia, unspecified; I10 Essential (primary) hypertension; F17.210 Nicotine dependence, cigarettes, uncomplicated; F17.290 Nicotine dependence, other tobacco product, uncomplicated; E66.9 Obesity, unspecified; R47.81 Slurred speech; R29.708 NIHSS score 8; R29.700 NIHSS score 0; Z68.39 Body mass index [BMI] 39.0-39.9, adult; Z79.02 Long term (current) use of antithrombotics/antiplatelets; Z79.82 Long term (current) use of aspirin; Z79.899 Other long term (current) drug therapy; Z86.73 Personal history of transient ischemic attack (TIA), and cerebral infarction without residual deficits
CPT/HCPCS: 36600; 51702; 70450; 70496; 70498; 70551; 71045; 80048; 80053; 80061; 80307; 81001; 82077; 82140; 82803; 82962; 84484; 85025; 85610; 85730; 92507; 93005; 93306; 95819; 97162; 97166; 99285; J3101; J7030; Q9957; Q9967; A4216; C8929; J2405

== ENCOUNTER 2023-06-14 00:54 | Emergency (ER) | payer BC, SELFPAY ==
[2023-06-14 00:56] VITALS: BP 130/78; PULSE 67; RESP 10; TEMP 37.1; O2SAT 96; BMI 27.3
--- NOTE | 2023-06-14 01:16 | EKG12_ITS ---
Test Reason : SYNCOPE Blood Pressure : / mmHG Vent. Rate : 066 BPM Atrial Rate : 066 BPM P-R Int : 164 ms QRS Dur : 082 ms QT Int : 390 ms P-R-T Axes : 059 062 045 degrees QTc Int : 408 ms Normal sinus rhythm Normal ECG Confirmed by JODI HUTCHINSON, CHIDI ([id number]), order editor BLAKE MÉNDEZ ([id number]) on 06/16/2023 9:13:17 AM Referred By: Confirmed By:CHIDI ZAPATA MD
--- NOTE | 2023-06-14 01:19 | EX.ED.DYSGE1 ---
HPI History of Present Illness Chief Complaint: Syncope Narrative Narrative: Patient presents after a syncopal episode. He was sleeping all day since he works nights, he did not eat or drink he was in a very hot room and became lightheaded and then had what sounds like a brief episode of loss of consciousness with rapid full recovery without any neurological symptoms. He does have a history of stroke, DVT, obstructive sleep apnea, hypertension, GERD, obesity and anxiety. He does not have any strokelike symptoms today. He is denying any chest pain or shortness of breath. He does tell me he was lightheaded when he stood up earlier today [facility] Medical History Acute ischemic right MCA stroke Anxiety disorder CVA (cerebral vascular accident) DVT (deep venous thrombosis) GERD (gastroesophageal reflux disease) Hypertension Obesity (BMI 30-39.9) Smoker TIA (transient ischemic attack) Tobacco dependence Vitamin D deficiency Home Medications Vitamin D3 5,000 iu PO BID Vitamin D deficiency 01/17/16 [History Last Taken 11/08/16] lisinopril 10 mg tablet 10 mg PO DAILY #30 tabs 07/21/22 [Rx Last Taken Unknown] rosuvastatin 40 mg tablet 40 mg PO DAILY 03/30/23 [History Last Taken Unknown] esomeprazole magnesium 40 mg capsule,delayed release 40 mg PO DAILY 04/09/23 [History Last Taken Unknown] clopidogrel 75 mg tablet 75 mg PO DAILY #30 tabs 04/12/23 [Rx Last Taken Unknown] aspirin 81 mg tablet,delayed release 81 mg PO DAILY 06/14/23 [History Last Taken Unknown] atorvastatin 80 mg tablet 80 mg PO DAILY 06/14/23 [History Last Taken Unknown] bupropion HCl 150 mg 24 hr tablet, extended release 150 mg PO DAILY 06/14/23 [History Last Taken Unknown] doxycycline monohydrate 100 mg capsule 100 mg PO BID #20 CAPSULES 06/14/23 [Rx Last Taken Unknown] furosemide 40 mg tablet 40 mg PO DAILY 06/14/23 [History Last Taken Unknown] metformin 500 mg tablet 500 mg PO BID 06/14/23 [History Last Taken Unknown] Allergy/AdvReac Type Severity Reaction Status Date / Time cortisone Allergy Severe Shortness Verified 06/14/23 00:55 of breath bee venom protein (honey bee) Allergy Other Verified 06/14/23 00:55 [bees] Family History Father Heart disease Diabetes Surgical History History of ankle surgery History of removal of cyst Hx of arthrodesis Social History household members: significant other Smoking Status: Current some day smoker tobacco type: cigarettes and cigars Tobacco: How many years used: 47 second hand exposure: No alcohol intake: current alcohol intake frequency: a few times a month details: rarely substance use type: does not use what type of physical activity do you participate in: walking and other details: OT - PT armando/caodaism: Mandaeism seatbelt use: always ROS ROS ED ROS Narrative Past medical history: Reviewed Medications: Reviewed Social history: Noncontributory Review of systems: All systems negative except as indicated General: No fever. He does feel lightheaded when he stands up Eyes: No visual changes ENT: No upper airway congestion, normal voice Neck: No neck pain Cardiovascular: No chest pain. Syncope as in HPI Respiratory: No shortness of breath or cough Gastrointestinal: No abdominal pain, nausea vomiting or diarrhea Genitourinary: No dysuria Musculoskeletal: Denies myalgias no difficulty with ambulation Skin: No rash Neurological: No memory loss, confusion or any focal weakness EXAM Physical Exam Narrative Exam Narrative: Physical exam General: Well nourished, Well developed, No Acute Distress Head: Normocephalic, Atraumatic Eyes: Conjunctiva not pale ENT: Somewhat dry mucous membranes Neck: Supple, Nontender, No lymphadenopathy Cardiovascular: Regular rate, Regular rhythm. No murmur Respiratory: No distress, CTA bilaterally Abdomen: Soft, Nontender, Nondistended Back: Nontender, Normal Inspection. Negative for: CVA tenderness Extremities: Nontender, No edema Skin: Normal color, No rash Neurological: Alert, Normal Strength, Normal Sensation. No focal deficit Const Vital Signs: 06/14/23 00:56 06/14/23 01:00 06/14/23 02:49 Temperature 98.8 F 97.8 F Temperature Source Oral Oral Pulse Rate 67 65 Respiratory Rate 10 L 16 Respiratory Effort Normal Respiratory Pattern Normal Blood Pressure 130/78 H 152/81 H Blood Pressure Mean 95 104 Pulse Ox 96 96 Oxygen Delivery Method Room Air Room Air MDM MDM MDM Narrative Medical decision making narrative: Patient presents with syncope. He had a consciousness with rapid full recovery. His EKG is unremarkable not worried about an arrhythmia causing this, his chest x-ray is normal although he does have leukocytosis, immature granulocytes and he has had some respiratory symptoms recently, he may be working on a pneumonia therefore with the leukocytosis and the respiratory symptoms I believe it is reasonable to treat with doxycycline. As far syncope, likely cause is dehydration, he did not eat or drink today, he felt lightheaded when standing up and he had dry mucous membranes. A COVID and influenza tests are pending however I do not believe the patient needs to stay in the ED. He was given IV fluids as far as resuscitation and improved. I talked to him about admission however since we have a plan he is feeling better and he appears well and wants to be discharged which is reasonable. I will discharge him in stable condition if anything changes he is to return. I also warned him about fevers chills worsening symptoms. I talked to his also give me some of the history and she is also okay with the plan. Lab Data Labs: Laboratory Results - last 24 hr 06/14/23 01:25 WBC 19.8 H RBC 4.91 Hgb 15.2 Hct 45.0 MCV 91.6 MCH 31.0 MCHC 33.8 RDW Std Deviation 43.2 RDW Coeff of Francisca 12.8 Plt Count 247 MPV 10.1 Immature Gran % (Auto) 1.100 H Neut % (Auto) 72.6 H Lymph % (Auto) 15.9 L Sterling % (Auto) 8.0 Eos % (Auto) 1.6 Baso % (Auto) 0.8 Absolute Neuts (auto) 14.4 H Absolute Lymphs (auto) 3.14 Nucleated RBC % 0 Diff Path Review May foll Sodium 134 L Potassium 3.8 Chloride 104 Carbon Dioxide 24.0 Anion Gap 6 BUN 10 Creatinine 0.85 Estim Creat Clear Calc 114.43 Est GFR (MDRD) Af Amer 123 Est GFR (MDRD) Non-Af 102 BUN/Creatinine Ratio 11.7 Glucose 112 H Calcium 8.8 Total Bilirubin 0.50 AST 26 ALT 31 Alkaline Phosphatase 78 Troponin I High Sens 4 Total Protein 7.8 Albumin 3.2 Globulin 4.6 H Albumin/Globulin Ratio 0.7 L Radiography Diagnostic Testing: Clinical Impression(s) from Imaging Studies Chest X-Ray 06/14/23 02:45 IMPRESSION: No acute findings in the chest. Electronically Signed: Tony Wright MD at 2:55 EDT Reading Location ID and State: [facility] / [place] , Service support , Rhythm Strip Rhythm Strip: Sinus Rhythm Rate: 66 Ectopy: None EKG Initial EKG: Comments: Sinus rhythm with a rate of 66. Normal IA interval. Normal QTc interval. No LVH. No signs of Brugada. No ischemic changes. Interpreted by emergency doctor Discharge Plan Triage Chief Complaint: Syncope ED Provider: Edd Sanchez Dx/Rx/DC Orders Clinical Impression: Acute dehydration, Leukocytosis, Syncope Instructions: Causes of Syncope Prescriptions: New doxycycline monohydrate 100 mg capsule 100 mg PO BID Qty: 20 0RF No Action rosuvastatin 40 mg tablet 40 mg PO DAILY Vitamin D3 5,000 iu PO BID Patient Comments: supplement lisinopril 10 mg Tablet 10 mg PO DAILY Qty: 30 0RF esomeprazole magnesium 40 mg capsule,delayed release(DR/EC) 40 mg PO DAILY Patient Comments: TAKE 1 CAPSULE BY MOUTH ONCE DAILY clopidogrel 75 mg tablet 75 mg PO DAILY Qty: 30 0RF metformin 500 mg tablet 500 mg PO BID Patient Comments: TAKE 1 TABLET BY MOUTH TWICE A DAY bupropion HCl 150 mg tablet extended release 24 hr 150 mg PO DAILY Patient Comments: TAKE 1 TABLET BY MOUTH EVERY DAY atorvastatin 80 mg tablet 80 mg PO DAILY Patient Comments: TAKE 1 TABLET BY MOUTH EVERY DAY aspirin 81 mg tablet,delayed release (DR/EC) 81 mg PO DAILY Patient Comments: TAKE 1 TABLET BY MOUTH EVERY DAY furosemide 40 mg tablet 40 mg PO DAILY Patient Comments: TAKE 1 TABLET BY MOUTH DAILY NEEDED Primary Care Provider: Jose Luis Camp Referrals: Jose Luis Camp [Primary Care Provider] - Activity Restrictions/Additional Instructions: The likely cause for your passing out was dehydration. Make sure you drink plenty of fluids. Otherwise you are found to have high white count which may be an early infection I believe this is secondary to a lung infection, however if you get worse, he had fevers chills, you feel weak or anything changes return to the emergency department right away.
[2023-06-14] MEDS: 0.9% Normal Saline 1,000 ML 1000 ML IV (01:27)
[2023-06-14 01:29] LABS: Absolute Lymphocyte Count 3.14 X10^3/uL (0.83-4.51); Absolute Neutrophil Count 14.4 X10^3/uL (2.0-7.7); Basophil# 0.15 X10^3/uL; Basophil% 0.8 % (0-1); Eosinophil# 0.32 X10^3/uL; Eosinophils% 1.6 % (0-5); Hemoglobin 15.2 g/dL (13.0-16.5); Lymphocyte # 3.14 X10^3/ul (0.83-4.51); Lymphocyte % 15.9 % (19-41); Mean Corp Hgb Conc 33.8 g/dL (32-36); Mean Corpuscular Volume 91.6 fL (80-94); Mean Platelet Vol. 10.1 fl (6.2-12.0); Monocyte# 1.58 X10^3/uL; NRBC Flagged by Analyzer 0 % (0-5); Neutrophil % 72.6 % (47-70); POSITIVE DIFFERENTIAL YES; Platelet Count 247 K/mm3 (150-450); RBC Distribution Width CV 12.8 % (11.6-14.6); RBC Distribution Width SD 43.2 fl (35.1-43.9); Red Blood Count 4.91 M/mm3 (4.6-6.2); White Blood Count 19.8 K/mm3 (4.4-11.0)
[2023-06-14 02:00] LABS: ALB/GLOB Ratio 0.7 RATIO (0.9-2.4); AST(SGOT) 26 U/L (15-37); Alanine Aminotransfer ALT/SGPT 31 U/L (16-61); Albumin, Serum 3.2 g/dL (3.2-5.0); Alkaline Phosphatase 78 U/L (45-117); Anion Gap 6 (5-15); BUN 10 mg/dL (7-18); BUN/Creat Ratio 11.7 RATIO (10-20); Calcium,Total 8.8 mg/dL (8.5-10.1); Chloride 104 mmol/L (98-107); Creatinine, Serum 0.85 mg/dL (0.70-1.30); EST Glomerular Filtration Rate 102 mL/min (>60); Est Glom Filt Rate - Afr Amer 123 mL/min (>60); Estimated Creatinine Clearance 114.43 ml/min; Globulin 4.6 g/dL (2.2-4.2); Glucose 112 mg/dL (74-106); Potassium 3.8 mmol/L (3.5-5.1); Protein, Total 7.8 g/dL (6.4-8.2); Sodium Level 134 mmol/L (136-145); Troponin-I HS 4 pg/mL (3.0-78.0)
[2023-06-14 02:26] LABS: Differential Indicated SCAN CRITERIA MET
--- NOTE | 2023-06-14 02:45 | RAD_ITS ---
EXAM: XR CHEST, 1 VIEW CLINICAL INDICATION: cough cough. Shortness of breath. TECHNIQUE: Frontal view of the chest. COMPARISON: Chest x-ray 04/09/2023. FINDINGS: LUNGS AND PLEURAL SPACES: Unremarkable. No consolidation or edema. No pneumothorax. No effusion. HEART: Unremarkable. Cardiac silhouette not enlarged. MEDIASTINUM: Central airways and mediastinal contour are unremarkable. BONES/JOINTS: There are multilevel degenerative changes in the visualized spine. SOFT TISSUES: Unremarkable. RAD/Chest 1 View (Portable) IMPRESSION: No acute findings in the chest. Electronically Signed: Tony Wright MD at 2:55 EDT ,
[2023-06-14 02:49] VITALS: BP 152/81; PULSE 65; RESP 16; TEMP 36.6; O2SAT 96
[2023-06-14] MEDS: Doxycycline 100 MG CAPSULE PO (03:20)
[2023-06-14 03:30] VITALS: BP 131/95; PULSE 74; RESP 18; O2SAT 100
[2023-06-15 10:13] LABS: Pathologist Review Reviewed
== END 2023-06-14 03:41 | disposition home or self-care (01) ==
PROVIDERS: Emergency Provider Emergency Medicine; PCP Family Medicine; Visit Provider Emergency Medicine
DX: R55 Syncope and collapse (principal); D72.829 Elevated white blood cell count, unspecified; E86.0 Dehydration; Z86.73 Personal history of transient ischemic attack (TIA), and cerebral infarction without residual deficits; I10 Essential (primary) hypertension; F17.210 Nicotine dependence, cigarettes, uncomplicated; Z79.899 Other long term (current) drug therapy; Z79.82 Long term (current) use of aspirin; K21.9 Gastro-esophageal reflux disease without esophagitis; F17.290 Nicotine dependence, other tobacco product, uncomplicated
CPT/HCPCS: 71045; 80053; 84484; 85025; 93005; 96360; 96361; 99285; J7030; A4216

== ENCOUNTER 2023-12-26 13:32 | Emergency (ER) | payer BC, SELFPAY ==
[2023-12-26 13:33] VITALS: BP 141/88; PULSE 98; RESP 16; TEMP 36.7; O2SAT 97; BMI 39.6
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
[2023-12-26] MEDS: Oxycodone/Apap 5/325 Tablet PO (14:15)
--- OUTSIDE RECORDS SUMMARY | 2023-12-26 14:43 | XMS RPT_ITS | CCD ---
Author Name Unknown Address [address] [place] [address] Organization [facility] Care Team Providers Care Director Of Marketing And Promotions Name Role Phone LOCO CONNELLY Attending Unavailable PHYSICIAN, NONE Primary Care Unavailable Results Test Name Value Interpretation Reference Range Facil ity Encounters Encounter Date Encounter Type Care Provider Facility Start: 12-31-2018 End: 12-31-2018 Emergency department patient visit LOCO CONNELLY Facil ity:B Payers Date Payer Category Payer Unknown [id number] 1975 Unknown [id number] Summary Purpose Family History No Family History Records FoundNo Family History Records Found Advance Directives No Advanced Directives Records FoundNo Advanced Directives Records Found Additional Source Comments (unrecognized sect ion and content) No Status Records FoundNo Status Records Found INFORMATION SOURCE (unrecogn ized section and content) DATE CREATED AUTHOR AUTHOR'S ORGANIZ ATION 02/11/2022 [facility] FOR RECORDS PERTAINING TO PATIENTS WHO ARE OR HAVE BEEN ENROLLED IN A CHEMICAL DEPENDENCY/SUBSTANCEABUSE PROGRAM, SOME INFORMATION MAY BE OMITTED. This clinical summary was aggregated from multiple sources. Caution should be exercised in using it in the provision of clinical care. This summary normalizes information from multiple sources, and as a consequence, information in this document may materially change the coding, format and clinical context of patient data. In addition, data may be omitted in some cases. CLINICAL DECISIONS SHOULD BE BASED ON THE PRIMARY CLINICAL RECORDS. [employer] provides no warranty or guarantee of the accuracy or completeness of information in this document.
[2023-12-26] MEDS: Diphth,Pertuss(Acell),Tet Vac 0.5 ML Vial IM (16:24)
[2023-12-26 16:43] VITALS: BP 116/73; PULSE 65; RESP 14; O2SAT 99
== END 2023-12-26 17:15 | disposition home or self-care (01) ==
PROVIDERS: Emergency Provider Emergency Medicine; PCP Family Medicine; Visit Provider Emergency Medicine
DX: S06.0X0A Concussion without loss of consciousness, initial encounter (principal); E11.9 Type 2 diabetes mellitus without complications; F17.210 Nicotine dependence, cigarettes, uncomplicated; S01.91XA Laceration without foreign body of unspecified part of head, initial encounter; Y04.8XXA Assault by other bodily force, initial encounter; Z86.73 Personal history of transient ischemic attack (TIA), and cerebral infarction without residual deficits; K21.9 Gastro-esophageal reflux disease without esophagitis; I10 Essential (primary) hypertension; Z86.718 Personal history of other venous thrombosis and embolism; Z79.82 Long term (current) use of aspirin; Z23 Encounter for immunization
CPT/HCPCS: 12002; 70450; 72125; 90471; 90715; 99284

== ENCOUNTER 2024-06-09 05:20 | Emergency (ER) | payer BC, SELFPAY ==
[2024-06-09 05:21] VITALS: BP 116/100; PULSE 66; RESP 17; TEMP 36.3; O2SAT 97; O2SAT 98; BMI 37.6
--- NOTE | 2024-06-09 05:46 | EKG12_ITS ---
Test Reason : CHEST TIGHTNESS Blood Pressure : / mmHG Vent. Rate : 063 BPM Atrial Rate : 063 BPM P-R Int : 196 ms QRS Dur : 084 ms QT Int : 400 ms P-R-T Axes : 053 057 045 degrees QTc Int : 409 ms Normal sinus rhythm Low voltage QRS Borderline ECG Confirmed by JODI HUTCHINSON, CHIDI ([id number]), research editor ALLY ZHENG ([id number]) on 06/12/2024 11:28:33 AM Referred By: MARK Confirmed By:CHIDI ZAPATA MD
--- NOTE | 2024-06-09 05:47 | RAD_ITS ---
INDICATION: chest pain/sob wheezing EXAMINATION/TECHNIQUE: X-RAY - XR Chest 2 Views COMPARISON: No relevant prior comparison study available FINDINGS: LINES/DEVICES: None. LUNGS: No consolidation, edema or effusion. No pneumothorax. MEDIASTINUM AND CARDIOVASCULAR STRUCTURES: Cardiac silhouette not enlarged. Central airways and mediastinal contour are unremarkable. BONES AND SOFT TISSUES: Unremarkable. RAD/Chest PA and Lateral IMPRESSION: No radiographic evidence of acute cardiopulmonary disease. Electronically Signed: Nicolasa Bella MD at 6:51 EDT ,
--- NOTE | 2024-06-09 05:48 | ED.VIS.CHEST ---
HPI History of Present Illness Chief Complaint: Shortness of Breath Informant: patient Narrative Narrative: 48-year-old male presenting 5:30 AM for chest heaviness and shortness of breath that started around 2 hours ago and has been persistent since then. No history of heart problems that he knows of but he had a couple of strokes within the past couple years that left him with some speech issues, none of that is any different right now. He states he has felt generally weak especially in his legs for the last several days. No fevers or chills that he knows of. He notices now that he is here in the ER that he seems to have some edema in both of his legs/ankles. He denies any vomiting or diarrhea or abdominal pain. He states his chest feels heavy like someone is sitting on it, does not radiate anywhere else. Substernal. 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 He denies inhaling any fumes, gases, or anything else he knows of. [facility] Medical History Hypertension CVA (cerebral vascular accident) Acute ischemic right MCA stroke GERD (gastroesophageal reflux disease) Smoker Obesity (BMI 30-39.9) Vitamin D deficiency TIA (transient ischemic attack) Tobacco dependence Anxiety disorder DVT (deep venous thrombosis) Home Medications ?Medication ?Instructions ?Recorded ?Last Taken ?Type Vitamin D3 5,000 iu PO BID Vitamin D 01/17/16 11/08/16 History deficiency lisinopril 10 mg tablet 10 mg PO DAILY #30 tabs 07/21/22 Unknown Rx esomeprazole magnesium 40 mg 40 mg PO DAILY 04/09/23 Unknown History capsule,delayed release aspirin 81 mg tablet,delayed 81 mg PO DAILY 06/14/23 Unknown History release atorvastatin 80 mg tablet 80 mg PO DAILY 06/14/23 Unknown History bupropion HCl 150 mg 24 hr tablet, 150 mg PO DAILY 06/14/23 Unknown History extended release furosemide 40 mg tablet 40 mg PO DAILY 06/14/23 Unknown History metformin 500 mg tablet 500 mg PO BID 06/14/23 Unknown History clopidogrel 75 mg tablet 75 mg PO DAILY #30 tabs 10/08/23 Unknown Rx cephalexin 500 mg capsule 500 mg PO TID #9 caps 12/26/23 Unknown Rx albuterol sulfate 90 mcg/actuation 1 - 2 puff inhalation Q4H PRN PRN 06/09/24 Unknown Rx aerosol inhaler (Ventolin HFA) Wheezing ##1 prednisone 20 mg tablet 40 mg (2 x 20 mg) PO DAILY #8 06/09/24 Unknown Rx TABLETS rosuvastatin 40 mg tablet 40 mg PO DAILY 06/09/24 Unknown History Allergy/AdvReac Type Severity Reaction Status Date / Time cortisone Allergy Severe Shortness Verified 06/09/24 05:21 of breath bee venom protein (honey Allergy Other Verified 06/09/24 05:21 bee) (bees) Family History Father Heart disease Diabetes Surgical History History of ankle surgery History of removal of cyst Hx of arthrodesis Social History household members: significant other Smoking Status: Current some day smoker tobacco type: cigars Tobacco: How many years used: 47 second hand exposure: No alcohol intake: current alcohol intake frequency: a few times a month details: rarely substance use type: does not use what type of physical activity do you participate in: walking and other details: OT - 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/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: [employer] seatbelt use: always ROS ROS ED Constitutional Constitutional ED: Reports fatigue and weakness; Denies chills or fever(s) Eyes Eyes: Denies change in vision or diplopia ENT ENT ED: Denies rhinorrhea or sore throat Cardiovascular Cardiovascular: Reports as per HPI and chest pain; Denies palpitations Respiratory/Chest Respiratory/Chest: Reports dyspnea; Denies cough or sputum Gastrointestinal Gastrointestinal: Denies abdominal pain, diarrhea, nausea or vomiting Genitourinary Genitourinary ED: Denies dysuria or hematuria Musculoskeletal Musculoskeletal: Denies back pain or neck pain Integumentary Denies abscess or rash Neurologic Neurologic: Denies headache(s), paresthesias or weakness Psychiatric Psychiatric: Denies suicidal thoughts EXAM Physical Exam Const Vital Signs: 06/09/24 05:21 06/09/24 05:21 06/09/24 06:06 Temperature 97.3 F L Temperature Source Oral Pulse Rate 66 Respiratory Rate 17 Respiratory Effort Normal Non-Labored Respiratory Depth Normal Respiratory Pattern Normal Blood Pressure 116/100 H Blood Pressure Mean 105 Pulse Ox 98 99 Oxygen Delivery Method Room Air Room Air Room Air 06/09/24 06:21 06/09/24 06:21 06/09/24 07:00 Temperature Temperature Source Pulse Rate 65 61 65 Respiratory Rate 24 H 14 20 H Respiratory Effort Respiratory Depth Respiratory Pattern Tachypnea Blood Pressure 125/98 H 133/96 H Blood Pressure Mean 107 108 Pulse Ox 92 94 Oxygen Delivery Method Room Air Room Air 06/09/24 07:48 Temperature 97.8 F Temperature Source Pulse Rate 78 Respiratory Rate 18 Respiratory Effort Respiratory Depth Respiratory Pattern Blood Pressure 126/85 H Blood Pressure Mean 98 Pulse Ox 97 Oxygen Delivery Method Positive well nourished and well developed General Appearance ED: well developed and NAD HEENT Reports moist mucous membranes normocephalic and atraumatic Eyes PERRL and EOMs intact bilaterally Neck full ROM and supple Resp normal respiratory effort Auscultation: wheezes expiratory wheezes (Mild; no rales or rhonchi) and throughout; Negative for rales or rhonchi Cardio regular rate, regular rhythm, no murmurs and no JVD GI non-tender and non-distended Auscultation: normoactive bowel sounds Palpation: soft Back/Spine no CVA tenderness General Back: other FROM Extremity normal to inspection Extremity Narrative: Possibly trace nonpitting edema bilateral ankles if present General Extremety ED: Negative for pulses abnormal or tenderness General Extremity: Negative for pulses abnormal Neuro oriented x3, CN's II-XII intact bilaterally and no sensory deficits noted Sensorium / Orientation: awake and alert Motor Exam: strength 5/5 throughout Psych Mood & Affect: anxious Skin no rashes or lesions noted and no wounds Heart Score History: Moderately Suspicious ECG: Normal Age: >45 - <65 years Risk Factors: 1 or 2 Risk Factors Troponin: </= Normal Limit Score: 3 MDM MDM MDM Narrative Medical decision making narrative: Patient has a normal EKG, his systolic blood pressure is 110-116, the rest of his vital signs are normal, and he has some slight wheezes. This chest discomfort may be pulmonary, so I am giving him a duo nebulizer treatment but also considering cardiac causes and working him up for acute coronary syndrome and congestive heart failure. The cardiac work up is negative with normal EKG, normal troponin, and a normal BNP. Chest x-ray two views on my interpretation are normal showing no signs of pneumonia or pulmonary edema, radiology in agreement. After the nebulizer treatment, he is feeling improved. 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 I am putting him on a five day course of prednisone to see if that helps, and prescribing him an albuterol inhaler and advising close outpatient follow up. He is comfortable with that plan. Lab Data Attestation: I reviewed the patient's lab results. Labs: Laboratory Results - last 24 hr 06/09/24 06:07 WBC 10.6 RBC 4.29 L Hgb 13.1 Hct 40.3 MCV 93.9 MCH 30.5 MCHC 32.5 RDW Std Deviation 45.5 H RDW Coeff of Francisca 13.2 Plt Count 212 MPV 10.2 Immature Gran % (Auto) 0.800 Neut % (Auto) 64.5 Lymph % (Auto) 23.1 Dauphin % (Auto) 7.7 Eos % (Auto) 3.1 Baso % (Auto) 0.8 Absolute Neuts (auto) 6.8 Absolute Lymphs (auto) 2.44 Nucleated RBC % 0 Sodium 137 Potassium 3.8 Chloride 107 Carbon Dioxide 24.0 Anion Gap 6 BUN 13 Creatinine 0.95 Estim Creat Clear Calc 126.66 Est GFR (MDRD) Af Amer 108 Est GFR (MDRD) Non-Af 89 BUN/Creatinine Ratio 13.6 Glucose 98 Calcium 8.7 Troponin I High Sens < 3 L B-Natriuretic Peptide 59.2 Radiography Diagnostic Testing: Clinical Impression(s) from Imaging Studies Chest X-Ray 06/09/24 05:47 IMPRESSION: No radiographic evidence of acute cardiopulmonary disease. Electronically Signed: Nicolasa Bella MD at 6:51 EDT , Rhythm Strip Rhythm Strip: Sinus Rhythm Rate: 60 Ectopy: None EKG Initial EKG: Attestation: I personally reviewed and interpreted this EKG as follows: Interpretation: Sinus Rhythm and No Acute Injury Pattern Comments: nml EKG Discharge Plan Triage Chief Complaint: Shortness of Breath ED Provider: Jason Bryant Dx/Rx/DC Orders Clinical Impression: RAD (reactive airway disease) with wheezing, Chest pain Instructions: Controlling Asthma Triggers at Work, Smoking and Respiratory Diseases Prescriptions: New albuterol sulfate [Ventolin HFA] 90 mcg/actuation HFA aerosol inhaler 1 - 2 puff inhalation Q4H PRN PRN (Reason: Wheezing) Qty: 1 0RF prednisone 20 mg tablet 40 mg PO DAILY Qty: 8 0RF No Action clopidogrel 75 mg tablet 75 mg PO DAILY Qty: 30 7RF Vitamin D3 5,000 iu PO BID Patient Comments: supplement lisinopril 10 mg Tablet 10 mg PO DAILY Qty: 30 0RF esomeprazole magnesium 40 mg capsule,delayed release(DR/EC) 40 mg PO DAILY Patient Comments: TAKE 1 CAPSULE BY MOUTH ONCE DAILY cephalexin 500 mg capsule 500 mg PO TID Qty: 9 0RF metformin 500 mg tablet 500 mg PO BID Patient Comments: TAKE 1 TABLET BY MOUTH TWICE A DAY bupropion HCl 150 mg tablet extended release 24 hr 150 mg PO DAILY Patient Comments: TAKE 1 TABLET BY MOUTH EVERY DAY atorvastatin 80 mg tablet 80 mg PO DAILY Patient Comments: TAKE 1 TABLET BY MOUTH EVERY DAY aspirin 81 mg tablet,delayed release (DR/EC) 81 mg PO DAILY Patient Comments: TAKE 1 TABLET BY MOUTH EVERY DAY furosemide 40 mg tablet 40 mg PO DAILY Patient Comments: TAKE 1 TABLET BY MOUTH DAILY NEEDED rosuvastatin 40 mg tablet 40 mg PO DAILY Stand Alone Forms: ED Work / School Excuse Primary Care Provider: Jose Luis Camp Referrals: Jose Luis Camp DO [Primary Care Provider] - 3-5 Days if not improving Print Language: Bermudian Disposition Disposition: Home, Self Care Discharge Date/Time: 06/09/24 08:04
[2024-06-09 06:06] VITALS: O2SAT 99
[2024-06-09 06:15] LABS: Absolute Lymphocyte Count 2.44 X10^3/uL (0.83-4.51); Absolute Neutrophil Count 6.8 X10^3/uL (2.0-7.7); Basophil# 0.08 X10^3/uL; Basophil% 0.8 % (0-1); Eosinophil# 0.33 X10^3/uL; Eosinophils% 3.1 % (0-5); Hematocrit 40.3 % (40-54); Hemoglobin 13.1 g/dL (13.0-16.5); Lymphocyte # 2.44 X10^3/ul (0.83-4.51); Lymphocyte % 23.1 % (19-41); Mean Corp Hgb Conc 32.5 g/dL (32-36); Mean Corpuscular Hgb 30.5 pg (27.0-32.0); Mean Corpuscular Volume 93.9 fL (80-94); Mean Platelet Vol. 10.2 fl (6.2-12.0); Monocyte# 0.81 X10^3/uL; Monocyte% 7.7 % (0-10); NRBC Flagged by Analyzer 0 % (0-5); Neutrophil # 6.82 X10^3/uL (2.7-7.7); Neutrophil % 64.5 % (47-70); Platelet Count 212 K/mm3 (150-450); RBC Distribution Width CV 13.2 % (11.6-14.6); RBC Distribution Width SD 45.5 fl (35.1-43.9); Red Blood Count 4.29 M/mm3 (4.6-6.2); White Blood Count 10.6 K/mm3 (4.4-11.0)
[2024-06-09 06:21] VITALS: BP 125/98; PULSE 61; PULSE 65; RESP 14; RESP 24; O2SAT 92
[2024-06-09] MEDS: Ipratropium/Albuterol Sulfate 3 ML AMPUL.NEB INHALATION (06:21)
[2024-06-09 06:39] LABS: Anion Gap 6 (5-15); BUN 13 mg/dL (7-18); BUN/Creat Ratio 13.6 RATIO (10-20); Calcium,Total 8.7 mg/dL (8.5-10.1); Chloride 107 mmol/L (98-107); Creatinine, Serum 0.95 mg/dL (0.70-1.30); EST Glomerular Filtration Rate 89 mL/min (>60); Est Glom Filt Rate - Afr Amer 108 mL/min (>60); Estimated Creatinine Clearance 126.66 ml/min; Glucose 98 mg/dL (74-106); Potassium 3.8 mmol/L (3.5-5.1); Sodium Level 137 mmol/L (136-145); Troponin-I HS (w/2H Reflex) < 3 pg/mL (3.0-78.0)
[2024-06-09 07:00] VITALS: BP 133/96; PULSE 65; RESP 20; O2SAT 94
[2024-06-09 07:48] VITALS: BP 126/85; PULSE 78; RESP 18; TEMP 36.6; O2SAT 97
[2024-06-09] MEDS: MethylPREDNISolone 125 MG/2 ML Vial IV (07:50)
[2024-06-09 08:12] LABS: Reflex Troponin-HS? (from REC) Y
[2024-06-09 08:28] LABS: BNP,B-Type NATRIURETIC PEPTIDE 59.2 pg/mL (0-100)
== END 2024-06-09 08:04 | disposition home or self-care (01) ==
PROVIDERS: Emergency Provider Emergency Medicine; PCP Family Medicine; Visit Provider Emergency Medicine
DX: J45.909 Unspecified asthma, uncomplicated (principal); I11.0 Hypertensive heart disease with heart failure; I50.9 Heart failure, unspecified; R07.9 Chest pain, unspecified
CPT/HCPCS: 36415; 71046; 80048; 83880; 84484; 85025; 93005; 94640; 96374; 99284; A4216

== ENCOUNTER → 2024-07-31 | Outpatient (CLI) | payer BC, SELFPAY ==
[2024-07-31 12:47] LABS: AST(SGOT) 19 U/L (15-37); Alanine Aminotransfer ALT/SGPT 28 U/L (16-61); Albumin, Serum 3.2 g/dL (3.2-5.0); Alkaline Phosphatase 75 U/L (45-117); Cholesterol 189 mg/dL (200); Globulin 4.1 g/dL (2.2-4.2); High Density Lipoprotein 33 mg/dL; Protein, Total 7.3 g/dL (6.4-8.2); Triglycerides 95 mg/dL; Very Low Density Lipoprotein 19 mg/dL (5-40)
== END | disposition home or self-care (01) ==
LOC: BFHLAB 09:23
PROVIDERS: PCP Family Medicine; Referring Provider Psychiatry & Neurology Neurology; Visit Provider Psychiatry & Neurology Neurology
DX: E78.5 Hyperlipidemia, unspecified (principal); R53.82 Chronic fatigue, unspecified
CPT/HCPCS: 36415; 80061; 80076; 84443

== ENCOUNTER → 2024-11-07 | Outpatient (CLI) | payer BC, SELFPAY | END | disposition home or self-care (01) | LOC: BFHLAB 15:39 → LABSPEC 15:41 | PROVIDERS: PCP Family Medicine; Referring Provider Family Medicine; Visit Provider Family Medicine | DX: L73.2 Hidradenitis suppurativa (principal); L02.91 Cutaneous abscess, unspecified | CPT/HCPCS: 87070; 87075; 87077; 87205 ==

== ENCOUNTER 2025-02-28 06:09 | Observation (INO) | payer BC, SELFPAY ==
[2025-02-28] VITALS (15 sets, daily range): BP systolic 101–147; BP diastolic 64–97; PULSE 63–97; RESP 16–19; TEMP 36–37.2; O2SAT 93–99; BMI 36.8; BMI 36.5
--- NOTE | 2025-02-28 06:27 | CT_ITS ---
PROCEDURE: STROKE BRAIN/HEAD WITHOUT CONT 02/28/2025 REASON FOR EXAM: NEURO DEFICIT, ACUTE, STROKE SUSPECTED TECHNIQUE: Head CT without intravenous contrast. Coronal and Sagittal reconstruction series were provided. One or more dose reduction techniques were used (e.g., Automated exposure control, adjustment of the mA and/or kV according to patient size, use of iterative reconstruction technique. RADIATION DOSE SUMMARY: CTDlvol: 45 mGy DLP: 864 MGycm FINDINGS: There is no acute intracranial hemorrhage, mass effect or midline shift. There are no abnormal extra-axial fluid collections present. Ventricles and sulci are within normal limits. The calvarium is intact. Visualized paranasal sinuses are unremarkable. The mastoids are well aerated. CT/STROKE Brain/Head without Cont IMPRESSION: No acute intracranial hemorrhage, mass effect or midline shift. If there is co ncern for acute infarct, MRI may be obtained. Reading Location: [id number]
--- NOTE | 2025-02-28 06:27 | EKG12_ITS ---
Test Reason : GEN WEAKNESS Blood Pressure : */* mmHG Vent. Rate : 72 BPM Atrial Rate : 72 BPM P-R Int : 196 ms QRS Dur : 86 ms QT Int : 398 ms P-R-T Axes : 60 69 51 degrees QTcB Int : 435 ms Normal sinus rhythm Normal ECG Confirmed by JODI HUTCHINSON, CHIDI ([id number]), publication editor BLAKE MÉNDEZ ([id number]) on 03/01/2025 8:35:06 AM Referred By: Confirmed By: CHIDI ZAPATA MD
--- NOTE | 2025-02-28 06:28 | CT_ITS ---
PROCEDURE: STROKE CTA HEAD AND NECK W/CON 02/28/2025 REASON FOR EXAM: NEURO DEFICIT, ACUTE, STROKE SUSPECTED TECHNIQUE: CTA imaging of the head and neck from the aortic arch to the skull vertex with intravenous contrast. Coronal and Sagittal reconstruction series were provided. 3D, 3D post processing, 3D reconstructions, Maximum intensity projection (MIPs) Volume rendering and Shaded surface rendering was provided. CONTRAST: Isovue 370 VOLUME: 100 mL One or more dose reduction techniques were used (e.g., Automated exposure control, adjustment of the mA and/or kV according to patient size, use of iterative reconstruction technique). # of known CTs in the past 12 months: 0 # of known Cardiac Nuclear Medicine Studies in the past 12 months: 0 RADIATION DOSE SUMMARY: CTDlvol: 70 mGy DLP: 836.6 mGycm COMPARISON: CT brain performed on the same date. FINDINGS: Aortic Arch: Within normal limits. Brachiocephalic and Subclavians: Within normal limits. RIGHT Carotid: Right CCA: Within normal limits Right ICA: Within normal limits Maximum stenosis (NASCET): No significant stenosis. Right ECA: Within normal limits LEFT Carotid: Left CCA: Within normal limits Left ICA: Within normal limits Maximum stenosis (NASCET): No significant stenosis. Left ECA: Within normal limits Vertebrals: RIGHT Vertebral: Within normal limits LEFT Vertebral: Within normal limits. Anatomy: Aneurysm or avm: None Anterior cerebral arteries: Within normal limits Middle cerebral arteries: Within normal limits Basilar artery: Mildly diminutive in size. Posterior cerebral arteries: Mildly diminutive in size. Other major branches of the posterior circulation: Mildly diminutive in size. CT/STROKE CTA Head AND Neck W/Con IMPRESSION: The posterior cerebral arteries as well as posterior communicating artery's dem onstrate mild diminution in size. This may represent normal variant could also represent vasculitis. Correlate clinically . No hemodynamically significant stenosis seen within the bilateral ICA. No sign ificant atheromatous calcification. Reading Location: [id number]
--- NOTE | 2025-02-28 06:43 | EDS_ITS ---
HPI History of Present Illness Chief Complaint: Weakness Detail of Chief Complaint: Weakness pain left lower extremity yesterday at 05 100. Informant: patient Onset/Context/Timing Onset: Today (Today he fell twice walking and states his left side does not feel normal.) and Yesterday (Yesterday complained of left lower extremity pain and trouble walking.) Context: Sudden Onset Timing: Continuous Quality and Location: Positive for Left Arm Parasthesia, Left Leg Parasthesia and Left Leg Weakness Current Severity: Mild Maximum Severity: Mild Worsened by: Nothing specific Relieved by: Nothing Associated Symptoms Associated Symptoms: Negative for Headache, Nausea, Vomiting or Chest Pain Narrative Narrative: Patient is a 49-year-old male. He is a smoker. Based on medication he has a history of elevated cholesterol, hypertension and type 2 diabetes. He is on Plavix apparently. Patient's complaint is pain weakness and difficulty walking involvement is left side. As previously noted this started yesterday at 0500. He was sent in because his boss noted he had fallen twice because of his leg weakness. He denies headache, double vision blurred vision loss of vision. Measuring his ears decreased hearing. Denies trouble with speech or swallowing. He denies cardiac or respiratory symptoms. He denies GI symptoms. Prior similar symptoms: No Recent Illness/Hospitalization: No [facility] Medical History History of blood clots Edema Hypertension CVA (cerebral vascular accident) Acute ischemic right MCA stroke GERD (gastroesophageal reflux disease) Smoker Obesity (BMI 30-39.9) Vitamin D deficiency TIA (transient ischemic attack) Tobacco dependence Anxiety disorder DVT (deep venous thrombosis) Home Medications ?Medication ?Instructions ?Recorded ?Last Taken ?Type Vitamin D3 5,000 iu PO BID Vitamin D 11/08/16 History deficiency lisinopril 10 mg tablet 10 mg PO DAILY #30 tabs 06/24 Unknown Rx esomeprazole magnesium 40 mg 40 mg PO DAILY 04/09/23 U nknown History capsule,delayed release atorvastatin 80 mg tablet 80 mg PO DAILY 06/14/23 Unkn own History bupropion HCl 150 mg 24 hr tablet, 150 mg PO DAILY Unknown History extended release furosemide 40 mg tablet 40 mg PO DAILY 06/14/23 Unkn own History metformin 500 mg tablet 500 mg PO BID 06/14/23 Unkno wn History clopidogrel 75 mg tablet 75 mg PO DAILY #30 tabs 02/12 Unknown Rx Allergy/AdvReac Type Severity Reaction Status Date / Time cortisone Allergy Severe Shortness Verified 02/28/25 06:10 of breath bee venom protein (honey Allergy Other Verified 02/28/25 06:10 bee) (bees) Family History Father Heart disease Diabetes Surgical History History of ankle surgery Hx of arthrodesis History of removal of cyst Social History household members: significant other Smoking Status: Current every day smoker tobacco type: cigars Tobacco: How many years used: 47 second hand exposure: No alcohol intake: current alcohol intake frequency: a few times a month details: rarely substance use type: does not use what type of physical activity do you participate in: walking and other details: OT - PT armando/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: [employer] seatbelt use: always ROS ROS ED Constitutional Constitutional ED: Denies chills, fever(s), subjective or sweats Eyes Eyes: Denies blurry vision, change in vision or diplopia ENT ENT ED: Denies ear pain, rhinorrhea or sore throat Cardiovascular Cardiovascular: Denies chest pain, palpitations or paroxysmal nocturnal dyspnea Respiratory/Chest Respiratory/Chest: Denies cough, dyspnea, dyspnea on exertion or paroxysmal nocturnal dyspnea Gastrointestinal Gastrointestinal: Denies abdominal pain, melena, nausea or vomiting Genitourinary Genitourinary ED: Denies urinary frequency Musculoskeletal Musculoskeletal: Denies arthralgias, back pain or myalgias Integumentary Denies rash Neurologic Neurologic: Reports paresthesias LUE and LLE and weakness Endocrine Endocrinology: Denies polydipsia or polyphagia Hematologic/Lymphatic Hematologic/Lymphatic: Denies easy bleeding or easy bruising EXAM Physical Exam Const Vital Signs: 02/28/25 06:10 02/28/25 06:10 02/28/25 06:27 Temperature 97.6 F L Temperature Source Oral Pulse Rate 86 97 Respiratory Rate 16 19 H Respiratory Pattern Normal Blood Pressure 143/91 H 113/97 H Blood Pressure Mean 108 102 Pulse Ox 97 97 Oxygen Delivery Method Room Air 02/28/25 06:29 02/28/25 06:57 Temperature Temperature Source Pulse Rate 69 Respiratory Rate 19 H Respiratory Pattern Blood Pressure 115/75 Blood Pressure Mean 88 Pulse Ox 97 97 Oxygen Delivery Method Room Air Room Air Positive well nourished and well developed Constitutional Narrative: BMI is 36.9. General Appearance ED: well developed HEENT Reports moist mucous membranes atraumatic Eyes PERRL and EOMs intact bilaterally General Eye ED: Negative for pale conjunctiva or scleral icterus Neck no lymphadenopathy, supple and no JVD Neck Narrative: There are no carotid bruits. Chest Wall inspection of chest normal and palpation of chest normal Resp normal respiratory effort and clear to auscultation bilaterally Cardio no murmurs Rate: regular rate Rhythm: regular rhythm Heart Sounds: S1 normal and S2 normal GI normal to inspection, nondistended, normoactive bowel sounds, soft to palpation, non-tender, non-distended and no masses Back/Spine no CVA tenderness Extremity normal to inspection Extremity Narrative: Patient does have stigmata of vascular disease lower extremity exam area Neuro oriented x3, CN's II-XII intact bilaterally and No no sensory deficits noted [place] Coma Scale: document GCS findings Spontaneous Obeys Commands Oriented 15 Sensorium / Orientation: alert Speech: speech normal Sensory Exam: sensory level loss detected Motor Exam: strength 5/5 throughout Psych mental status grossly normal Psych Narrative: Affect is flat. Skin no wounds General Skin Exam: Negative for jaundice Lesions: no lesions Rashes: no rashes NIHSS NIHSS Initial: 1a Level of Consciousness: 0 1b LOC Questions (Score 2 if aphasic/stupor): 0 1c LOC Commands (Only score 1st attempt): 0 2 Best Gaze (If aphasic, use reflexive mvmts.): 0 3 Visual: 0 4 Facial Palsy: 0 5 Motor Arm Right (UN = amputation/fusion): 0 5 Motor Arm Left: 1 6 Motor Leg Right: 0 6 Motor Leg Left: 1 7 Limb ataxia (Only + if out of proportion): 0 8 Sensory (Aphasia/stupor=0 or 1, coma=2): 1 9 Best Language: 0 10 Dysarthria (mute, coma=2, intubated=UN): 0 11 Extinction and Inattention (only scored if +): 0 Total Score: 3 MDM MDM MDM Narrative Medical decision making narrative: Patient presents with strokelike symptoms. Will obtain CT and appropriate workup using stroke order set. Need to evaluate for potential malignancy, intracranial bleed versus ischemic stroke. Lab Data Attestation: I reviewed the patient's lab results. Lab results narrative: CBC reveals slight elevation in white count otherwise unremarkable. Labs: Laboratory Results - last 24 hr 02/28/25 06:35 Hemoglobin A1c 5.6 L Radiography Diagnostic Testing: Clinical Impression(s) from Imaging Studies Brain CT 02/28/25 06:27 IMPRESSION: No acute intracranial hemorrhage, mass effect or midline shift. If there is concern for acute infarct, MRI may be obtained. Reading Location: [facility] Head/Neck CTA 02/28/25 06:28 IMPRESSION: The posterior cerebral arteries as well as posterior communicating artery's demonstrate mild diminution in size. This may represent normal variant could also represent vasculitis. Correlate clinically. No hemodynamically significant stenosis seen within the bilateral ICA. No significant atheromatous calcification. Reading Location: [facility] CT of the head without contrast was reviewed by me. There is no obvious abnormality. Radiology interpretation of unenhanced scan was unremarkable. EKG Initial EKG: Attestation: I personally reviewed and interpreted this EKG as follows: Interpretation: Sinus Rhythm (Rate to 72. EKG is normal. MO interval is 196 ms. QS duration 86 ms. QT duration 298 ms. [place] is normal.) Stroke Documentation Questions Stroke Team Activated: No Reviewed Inclusion/Exclusion criteria: No IV Thrombolytic Administered: No (Patient outside the window) No contraindications from thrombolytic administration: No Risks, Benefits, Alternatives Discussed: No Discharge Plan Dx/Rx/DC Orders Clinical Impression: Cerebrovascular accident (CVA) involving right cerebral hemisphere, Hyperlipidemia, History of hypertension, Type 2 diabetes mellitus Disposition Disposition: Acute Care Hospital [facility] Discharge Date/Time: 02/28/25 08:48
[2025-02-28 06:44] LABS: Absolute Lymphocyte Count 2.93 X10^3/uL (0.83-4.51); Absolute Neutrophil Count 7.1 X10^3/uL (2.0-7.7); Basophil# 0.11 X10^3/uL; Basophil% 0.9 % (0-1); Eosinophil# 0.39 X10^3/uL; Eosinophils% 3.4 % (0-5); Hematocrit 41.9 % (40-54); Hemoglobin 14.4 g/dL (13.0-16.5); Lymphocyte # 2.93 X10^3/ul (0.83-4.51); Lymphocyte % 25.3 % (19-41); Mean Corp Hgb Conc 34.4 g/dL (32-36); Mean Corpuscular Hgb 31.7 pg (27.0-32.0); Mean Corpuscular Volume 92.3 fL (80-94); Mean Platelet Vol. 10.6 fl (6.2-12.0); Monocyte# 0.98 X10^3/uL; Monocyte% 8.4 % (0-10); NRBC Flagged by Analyzer 0 % (0-5); Neutrophil # 7.08 X10^3/uL (2.7-7.7); Neutrophil % 61.1 % (47-70); Platelet Count 225 K/mm3 (150-450); RBC Distribution Width CV 13.2 % (11.6-14.6); RBC Distribution Width SD 44.8 fl (35.1-43.9); Red Blood Count 4.54 M/mm3 (4.6-6.2); White Blood Count 11.6 K/mm3 (4.4-11.0)
[2025-02-28 06:57] LABS: Prothrombin Time (Protime)PT. 13.8 SECONDS (11.7-14.9)
[2025-02-28 06:58] LABS: Partial Thromboplast Time 27.3 Seconds (24.1-36.2)
[2025-02-28 07:09] LABS: Anion Gap 12 (5-15); BUN 17 mg/dL (4-19); BUN/Creat Ratio 17.4 RATIO (10-20); Calcium,Total 9.4 mg/dL (7.6-11.0); Carbon Dioxide 21.8 mmol/L (21.0-32.0); Chloride 103 mmol/L (98-108); Creatinine, Serum 0.99 mg/dL (0.70-1.20); EST Glomerular Filtration Rate 93 (>60); Glucose 87 mg/dL (70-99); Sodium Level 137 mmol/L (133-145); Troponin T High Sensitivity < 6 ng/L (<=22)
--- NOTE | 2025-02-28 07:43 | PCM.HP.STD ---
HPI - General General Date of Admission: 02/28/25 Date of Service: 02/28/25 Chief Complaint: Left-sided weakness HPI Narrative IRASEMA CUTLER, is a 49 M who presented to the emergency department at [facility] on 02/28/2025 with a chief complaint of left-sided weakness. Patient has a history of stroke with previous left-sided deficits and takes Plavix. He previously had been on aspirin but was transitioned to Plavix at the time of his second stroke which was back in 2021. Patient reported that his boss sent him to the emergency department because he fell twice due to leg weakness. He also is complaining of some left upper extremity weakness. He denies any paresthesias, diplopia, dysarthria or speech difficulties. Vital signs on presentation showed a temperature of 97.6, heart rate 86, respiratory rate was 16, blood pressure was 143/91, and pulse ox was 97% on room air. CBC showed a mild leukocytosis with a white count of 11.6 but was otherwise unremarkable. Coags were normal. Chemistry was unremarkable. Troponin was normal. EKG was unremarkable with unchanged from previous. CT of the brain was negative for acute findings. CTA of the head and neck showed posterior cerebral arteries as well as [employer] with mild continuation in size that could be normal variant versus vasculitis with no hemodynamically significant stenosis noted in bilateral ICAs. Given his symptoms and history there is concern for acute stroke so he was admitted to the hospital. [facility] Medical History History of blood clots Edema Hypertension CVA (cerebral vascular accident) Acute ischemic right MCA stroke GERD (gastroesophageal reflux disease) Smoker Obesity (BMI 30-39.9) Vitamin D deficiency TIA (transient ischemic attack) Tobacco dependence Anxiety disorder DVT (deep venous thrombosis) Home Medications ?Medication ?Instructions ?Recorded ?Last Taken ?Type Vitamin D3 5,000 iu PO BID Vitamin D 01/17/16 11/08/16 History deficiency lisinopril 10 mg tablet 10 mg PO DAILY #30 tabs 07/21/22 Unknown Rx esomeprazole magnesium 40 mg 40 mg PO DAILY 04/09/23 Unknown History capsule,delayed release atorvastatin 80 mg tablet 80 mg PO DAILY 06/14/23 Unknown History bupropion HCl 150 mg 24 hr tablet, 150 mg PO DAILY 06/14/23 Unknown History extended release furosemide 40 mg tablet 40 mg PO DAILY 06/14/23 Unknown History metformin 500 mg tablet 500 mg PO BID 06/14/23 Unknown History clopidogrel 75 mg tablet 75 mg PO DAILY #30 tabs 07/25/24 Unknown Rx Allergy/AdvReac Type Severity Reaction Status Date / Time cortisone Allergy Severe Shortness Verified 02/28/25 06:10 of breath bee venom protein (honey Allergy Other Verified 02/28/25 06:10 bee) (bees) Family History Father Heart disease Diabetes Surgical History History of ankle surgery Hx of arthrodesis History of removal of cyst Social History household members: significant other Smoking Status: Current every day smoker tobacco type: cigars Tobacco: How many years used: 47 second hand exposure: No alcohol intake: current alcohol intake frequency: a few times a month details: rarely substance use type: does not use what type of physical activity do you participate in: walking and other details: OT - PT amrando/jain: Adventism seatbelt use: always ROS Constitutional Constitutional: Reports weakness; Denies anorexia, change in weight, chills, fatigue, fever(s), malaise, night sweats or other Eyes Eyes: Denies blurry vision, change in eye color, change in vision, discharge from eye(s), double vision, erythema, eye pain, loss of vision or other ENT HEENT: Denies abnormal hearing, dysphagia, ear pain, epistaxis, headache(s), hearing loss, nasal congestion, nasal discharge, post nasal drip, sinus pressure, sore throat or other Cardiovascular Cardiovascular: Denies chest pain, claudication, dyspnea on exertion, edema, lightheadedness, orthopnea, palpitations, paroxysmal nocturnal dyspnea, rapid heart rate, syncope or other Respiratory/Chest Respiratory/Chest: Denies cough, dyspnea, excessive phlegm production, hemoptysis, productive cough, shortness of breath at rest, shortness of breath with exertion, wheezing or other Gastrointestinal Gastrointestinal: Denies abdominal pain, coffee ground emesis, constipation, diarrhea, dyspepsia, hematemesis, hematochezia, loose stools, melena, nausea, vomiting or other Genitourinary Genitourinary: Denies burning urination, difficulty urinating, dysuria, hematuria, nocturia, urinary frequency, urinary hesitancy, urinary incontinence, urinary urgency or other Musculoskeletal Musculoskeletal: Reports other Details: Left leg and arm pain Neurologic Neurologic: Reports abnormal gait and focal weakness; Denies abnormal speech, confusion, disequilibrium, dizziness, headache(s), numbness, paresthesias, seizure-like activity, seizures, syncope, tingling, tremor(s) or other Psychiatric Psychiatric: Denies anxiety, depression, homicidal ideation, suicidal ideation or other Endocrine Endocrinology: Denies change in body appearance, cold intolerance, excessive sweating, heat intolerance, polydipsia, polyuria or other Hematologic/Lymphatic Hematologic/Lymphatic: Denies anemia, easy bleeding, easy bruising, lymphadenopathy or other Allergic/Immunologic Allergic/Immunologic: Denies rhinitis, hives, eczemia, asthma or other Vital Signs Vital Signs Vital Signs: 02/28/25 06:10 02/28/25 06:10 02/28/25 06:27 Temperature 97.6 F L Temperature Source Oral Pulse Rate 86 97 Respiratory Rate 16 19 H Respiratory Pattern Normal Blood Pressure 143/91 H 113/97 H Blood Pressure Mean 108 102 Pulse Ox 97 97 Oxygen Delivery Method Room Air 02/28/25 06:29 02/28/25 06:57 02/28/25 07:27 Temperature 98.9 F Temperature Source Oral Pulse Rate 69 78 Respiratory Rate 19 H 16 Respiratory Pattern Blood Pressure 115/75 147/84 H Blood Pressure Mean 88 105 Pulse Ox 97 97 98 Oxygen Delivery Method Room Air Room Air Room Air Weight Weight: 119.884 kg Body Mass Index (BMI) 36.8 Physical Exam Const alert, oriented x3, no apparent distress and well nourished; Negative for average body habitus or healthy appearing Constitutional Narrative: Obese, middle-aged, white male, sitting up in bed, at bedside, patient appears older than stated age, currently appears comfortable, nontoxic General Appearance: cooperative HEENT normocephalic, head/scalp atraumatic and hearing grossly normal bilaterally HEENT Narrative: Mallampati 3, no thrush Eyes EOMs intact bilaterally and conjunctivae normal Eyes Narrative: No scleral icterus Neck supple Neck Narrative: Trachea midline Resp normal respiratory effort, no retractions, no use of accessory muscles and clear to auscultation bilaterally Resp Narrative: Slightly diminished diffusely with clear Auscultation: Negative for rales, rhonchi or wheezes Cardio regular rate, regular rhythm, S1 normal heart sound, S2 normal heart sound, no murmurs, no rub, no gallops and no clicks GI normal to inspection, nondistended, normoactive bowel sounds, soft to palpation and non-tender Extremity no clubbing, cyanosis or edema Extremity Narrative: Pedal and radial pulses are 2+ Neuro CN's II-XII intact bilaterally and No no focal motor deficits Neuro Narrative: Negative clonus, reflexes on the left side are slightly hyperactive especially in the lower extremity at the patella, mild left upper extremity drift mild left lower extremity drift without hitting the bed, sensation is normal Speech: speech normal Psych affect normal Psych Narrative: Eye contact is good and patient interacts appropriately Results Lab / Micro Data 02/28/25 06:35 02/28/25 06:35 Labs: Laboratory Results - last 24 hr 02/28/25 06:35: WBC 11.6 H, RBC 4.54 L, Hgb 14.4, Hct 41.9, MCV 92.3, MCH 31.7, MCHC 34.4, RDW Std Deviation 44.8 H, RDW Coeff of Francisca 13.2, Plt Count 225, MPV 10.6, Immature Gran % (Auto) 0.900, Neut % (Auto) 61.1, Lymph % (Auto) 25.3, [place] % (Auto) 8.4, Eos % (Auto) 3.4, Baso % (Auto) 0.9, Absolute Neuts (auto) 7.1, Absolute Lymphs (auto) 2.93, Nucleated RBC % 0, PT 13.8, INR 1.0, APTT 27.3, Sodium 137, Potassium 4.0, Chloride 103, Carbon Dioxide 21.8, Anion Gap 12, BUN 17, Creatinine 0.99, Estim Creat Clear Calc 118.90, Est GFR (MDRD) Non-Af 93, BUN/Creatinine Ratio 17.4, Glucose 87, Calcium 9.4, Troponin T High Sens < 6 Imaging Radiology Impression Brain CT 02/28/25 06:27 IMPRESSION: No acute intracranial hemorrhage, mass effect or midline shift. If there is concern for acute infarct, MRI may be obtained. Reading Location: [id number] Head/Neck CTA 02/28/25 06:28 IMPRESSION: The posterior cerebral arteries as well as posterior communicating artery's demonstrate mild diminution in size. This may represent normal variant could also represent vasculitis. Correlate clinically. No hemodynamically significant stenosis seen within the bilateral ICA. No significant atheromatous calcification. Reading Location: [id number] Assessment & Plan Assessment/Plan (1) Left-sided weakness: (2) Falls: PLAN: Plan Acute on chronic left-sided weakness -Patient reports his previous stroke affected the left side however he felt weaker today -Stroke order set utilized -Check hemoglobin A1c -Check lipid panel -Continue home Plavix -Add aspirin 81 mg daily -Hold home lisinopril to allow for some temporary permissive hypertension with as needed medication available for bikes -Check echocardiogram -Check MRI -NIH as per protocol -Neurology consult History of stroke -Patient was previously on aspirin but transition to Plavix alone when he had a stroke on aspirin -Continue secondary risk factor modification Essential hypertension -Continue home Lasix -Hold home lisinopril -As needed antihypertensives are available DM-2 -Hold home metformin with contrast utilization -SSI with Accu-Cheks as ordered -Check hemoglobin A1c GERD -Continue with PPI History of VTE -Remote -No longer on anticoagulation Tobacco abuse -Still smoking half a pack a day -Patient denies need for nicotine replacement therapy -States he intends to quit with his Obesity -BMI 36.5 -Recommend weight loss -complicates treatment, prognosis, outcomes DVT prophylaxis -Subcu enoxaparin 40 daily CODE STATUS -Full code as verified at the time of admission Charges/Coding Visit Charges Inpatient E&M: 94991 Init Hosp L2
[2025-02-28 08:14] LABS: Bedside Glucose 87 mg/dL (74-106)
--- NOTE | 2025-02-28 08:54 | MRI_ITS ---
PROCEDURE: BRAIN WITHOUT CONTRAST (MRIBR), 02/28/2025 REASON FOR EXAM: LLE WEAKNESS COMPARISON: CT head and CTA head/neck of same date TECHNIQUE: Multisequence multiplanar MRI brain was performed without intravenous contrast. Contrast: None. FINDINGS: Cerebrum: No acute infarct, mass, or appreciable intracranial hemorrhage. Scattered supratentorial white matter abnormalities are greater in number than would be expected to represent typical age related chronic microvascular ischemic changes in a patient of this age. No significant cerebral volume loss. Likely prominent perivascular spaces in the bilateral basal ganglia. Cerebellum: Unremarkable. Brainstem: Unremarkable. Ventricles/extra-axial spaces: Unremarkable. Cavum septum pellucidum, normal variant. Major flow voids: Grossly unremarkable, better evaluated on CTA of same date. Paranasal sinuses: Trace LEFT mastoid effusion.. Hypertrophic RIGHT inferior turbinate. Scalp/calvarium: Unremarkable. Orbits: Grossly unremarkable within limits of nondedicated technique. Other: None. MRI/Brain without Contrast IMPRESSION: 1. No specific evidence of an acute intracranial process. 2. Scattered supratentorial white matter abnormalities greater than would be ex pected to represent typical age related chronic microvascular ischemic changes in a patient of this age. This is a nonspecific finding and can be seen in various entities including CADASIL and demyelinating processes. Correlate with clinical evaluat ion. 3. Trace LEFT mastoid effusion. 4. Additional description as above. Reading Location: [id number]
--- NOTE | 2025-02-28 09:44 | ECHOCS_ITS ---
Reason For Study Reason For Study: TIA/CVA Procedure This was a 2D Doppler, Color Flow transthoracic echocardiogram. The study was technically difficult. Patient unable to lay on left side due to left arm and left leg pain. Contrast injection was performed. Exam performed portable in patient room. Left Ventricle Normal LV size. Left ventricular systolic function is normal. The left ventricular ejection fraction is 65 %. No regional wall motion abnormalities noted. Right Ventricle Normal RV size. Normal systolic function. Atria Normal left atrium. Normal right atrium. Mitral Valve Normal mitral valve. Tricuspid Valve Normal tricuspid valve. Aortic Valve The aortic valve is not well visualized. Pulmonic Valve The pulmonic valve is not well visualized. Great Vessels Normal aortic root. The pulmonary artery is normal size. Pericardium/Pleural No pericardial effusion. Medication Diluted definity 2ml given slow IV push to enhance endocardial definition. MMode/2D Measurements & Calculations LVIDd: 4.6 cm IVSd: 1.1 cm LAV(MOD- bp): 50.1 ml LVIDs: 2.8 cm LVPWd: 1.0 cm FS: 38.4 % LAV(MOD- bp) Indexed: 21.2 ml/m2 LAV(MOD- sp2): 47.9 ml LAV(MOD- sp4): 49.2 ml SV(MOD-sp4): 78.4 ml SV(sp4- el): 80.2 ml LVAd ap4: 33.6 cm2 LVLd ap4: 8.1 cm SI(MOD-sp4): 33.2 ml/m2 EDV(MOD-sp4): 114.7 ml EDV(sp4-el): 118.3 ml LVAs ap4: 17.8 cm2 LVLs ap4: 7.1 cm ESV(MOD-sp4): 36.2 ml ESV(sp4-el): 38.2 ml EF(MOD-sp4): 68.4 % EF(sp4-el): 67.7 % LA dimension(2D): 3.3 cm LA A4 area: 17.5 cm2 RA A4 area: 16.8 cm2 TAPSE: 2.0 cm Time Measurements MV dec time: 0.21 sec Doppler Measurements & Calculations MV E max gilbert: 78.1 cm/sec Lat Peak E' Gilbert: 17.9 cm/sec Med Peak E' Gilbert: 12.6 cm/sec MV A max gilbert: 58.3 cm/sec E/E' lat: 4.4 E/E' med: 6.2 MV E/A: 1.3 MV V2 max: 91.2 cm/sec MV P1/2t max gilbert: 91.2 cm/sec Ao V2 max: 133.7 cm/sec MV max P.3 mmHg MV P1/2t: 80.7 msec Ao max P.2 mmHg MV V2 mean: 50.4 cm/sec MV dec slope: 331.3 cm/sec2 MV mean P.2 mmHg MVA(P1/2t): 2.7 cm2 MV V2 VTI: 30.6 cm LV V1 max: 123.0 cm/sec LV V1 max P.1 mmHg ECHO/Echo Complete W/ Contrast Interpretation Summary Normal LV size. Left ventricular systolic function is normal. The left ventricular ejection fraction is 65 %. Contrast injection was performed. Ordering Physician: Rasheeda Riojas Referring Physician: Jose Luis Camp Performed By: Cipriano Petty RCS
[2025-02-28] MEDS: Clopidogrel Bisulfate 75 MG Tablet PO (10:12)
[2025-02-28] MEDS: Aspirin 81 MG TAB.CHEW PO (10:12)
[2025-02-28] MEDS: Pantoprazole Sodium 40 MG Tablet PO (10:12)
[2025-02-28] MEDS: Furosemide 40 MG Tablet PO (10:12)
[2025-02-28] MEDS: buPROPion (XL) 150 MG TABLET.XL PO (10:13)
[2025-02-28] MEDS: Enoxaparin 40 MG/0.4 ML Syringe SC (10:13)
[2025-02-28 10:23] LABS: Hemoglobin A1c 5.6 % (<=5.6)
[2025-02-28] MEDS: Acetaminophen 325 MG Tablet 650 MG PO ×2 (10:24→14:35)
[2025-02-28 11:27] LABS: Troponin T High Sens 4 HR < 6 ng/L (<=22)
[2025-02-28 11:45] LABS: Bedside Glucose 159 mg/dL (74-106)
[2025-02-28 17:44] LABS: Bedside Glucose 125 mg/dL (74-106)
--- NOTE | 2025-02-28 17:58 | STROKE.CONS ---
Assessment and Plan: Stroke Assessment/Plan Unlikely to be stroke due to prominent pain component which would be abnormal for stroke as well as negative MRI brain. Recommend MRI Cervical spine with and without gadolinium to rule out myelopathy though overall less likely. Also possible functional neurologic disorder given repeated symptoms with negative workups. Complex migraine is also a possibility though no headache component of this presentation and limb pain would also be abnormal. Recommend involving general teleneurology service to offer opinion and follow up on imaging. Radiology read of MRI brain mentions CADASIL in differential but the MRI does not have any of the cardinal features of this such as anterior temporal horn or external capsule white matter disease so low suspicion for this. HPI Consult Data Date of Consult: 02/28/25 HPI Narrative HPI Narrative: IRASEMA CUTLER, is a 49M w/ HTN/HLD, [place] on CPAP, tobacco use, DVT (previously on anticoagulant). Prior presentation for acute L weakness, initially treated w/ tPA but MRI neg so suspected hypertensive emergency (07/20/22), however weakness persisted for 2 months before resolving. 03/2023 had LOC and dysarthria, treated w/ TNK. MRI neg, symptoms improved over 1 week. Treated w/ DAPT x 21 days. Mildly elevated anti-cardiolipin ab but negative on repeat testing. Ultimate diagnosis of ischemic stroke vs complex migraine. Follows w/ Dr Callahan as outpatient neurologist who has him on Plavix and atorvastatin for stroke prevention. 02/27/25 had acute onset LLE pain followed by LLE weakness and stumbling while at work. Next am had LUE pain an mild weakness. Pain is worse with movement. Cannot identify location of pain with one finger. Does not start in shoulder or hip and radiate down arm/leg. No loss of bowel/bladder control. NIHSS 3 (LLE 1, LUE 1, sens 1). LDL 137, A1c 5.6%. MRI brain w/ no stroke, mild WMD. CTA w/ L VITICULTURIST (normal variant), otherwise unremarkable. FOR[facility]LY [facility], LAT[facility] Medical History History of blood clots Edema Hypertension CVA (cerebral vascular accident) Acute ischemic right MCA stroke GERD (gastroesophageal reflux disease) Smoker Obesity (BMI 30-39.9) Vitamin D deficiency TIA (transient ischemic attack) Tobacco dependence Anxiety disorder DVT (deep venous thrombosis) Home Medications ?Medication ?Instructions ?Recorded ?Last Taken ?Type Vitamin D3 5,000 iu PO BID Vitamin D 01/17/16 11/08/16 History deficiency lisinopril 10 mg tablet 10 mg PO DAILY #30 tabs 07/21/22 Unknown Rx esomeprazole magnesium 40 mg 40 mg PO DAILY 04/09/23 Unknown History capsule,delayed release atorvastatin 80 mg tablet 80 mg PO DAILY 06/14/23 Unknown History bupropion HCl 150 mg 24 hr tablet, 150 mg PO DAILY 06/14/23 Unknown History extended release furosemide 40 mg tablet 40 mg PO DAILY 06/14/23 Unknown History metformin 500 mg tablet 500 mg PO BID 06/14/23 Unknown History clopidogrel 75 mg tablet 75 mg PO DAILY #30 tabs 07/25/24 Unknown Rx Allergy/AdvReac Type Severity Reaction Status Date / Time cortisone Allergy Severe Shortness Verified 02/28/25 06:10 of breath bee venom protein (honey Allergy Other Verified 02/28/25 06:10 bee) (bees) Family History Father Heart disease Diabetes Surgical History History of ankle surgery Hx of arthrodesis History of removal of cyst Social History household members: significant other Smoking Status: Current every day smoker tobacco type: cigars Tobacco: How many years used: 47 second hand exposure: No alcohol intake: current alcohol intake frequency: a few times a month details: rarely substance use type: does not use what type of physical activity do you participate in: walking and other details: OT - PT armando/christianity: Yazidism seatbelt use: always Vital Signs Vital Signs Vital Signs: 02/28/25 06:10 02/28/25 06:10 02/28/25 06:27 Temperature 97.6 F L Temperature Source Oral Pulse Rate 86 97 Respiratory Rate 16 19 H Respiratory Effort Respiratory Depth Respiratory Pattern Normal Blood Pressure 143/91 H 113/97 H Blood Pressure Mean 108 102 Blood Pressure Source Blood Pressure Position Blood Pressure Location Pulse Ox 97 97 Oxygen Delivery Method Room Air 02/28/25 06:29 02/28/25 06:57 02/28/25 07:27 Temperature 98.9 F Temperature Source Oral Pulse Rate 69 78 Respiratory Rate 19 H 16 Respiratory Effort Respiratory Depth Respiratory Pattern Blood Pressure 115/75 147/84 H Blood Pressure Mean 88 105 Blood Pressure Source Blood Pressure Position Blood Pressure Location Pulse Ox 97 97 98 Oxygen Delivery Method Room Air Room Air Room Air 02/28/25 08:10 02/28/25 08:47 02/28/25 09:35 Temperature 98.6 F 98.1 F 96.8 F L Temperature Source Oral Temporal Pulse Rate 64 78 63 Respiratory Rate 18 16 18 Respiratory Effort Respiratory Depth Respiratory Pattern Blood Pressure 147/76 H 146/64 H 108/90 H Blood Pressure Mean 99 91 96 Blood Pressure Source Monitor Blood Pressure Position Semi-Fowlers Blood Pressure Location Right Forearm Pulse Ox 98 99 98 Oxygen Delivery Method Room Air Room Air 02/28/25 10:10 02/28/25 13:05 02/28/25 13:35 Temperature 97.5 F L Temperature Source Temporal Pulse Rate 68 Respiratory Rate 18 Respiratory Effort Normal Non-Labored Respiratory Depth Normal Respiratory Pattern Normal Blood Pressure 101/64 Blood Pressure Mean 76 Blood Pressure Source Monitor Blood Pressure Position Semi-Fowlers Blood Pressure Location Right Forearm Pulse Ox 98 95 96 Oxygen Delivery Method Room Air Room Air Room Air 02/28/25 17:17 Temperature 97.2 F L Temperature Source Temporal Pulse Rate 77 Respiratory Rate 16 Respiratory Effort Respiratory Depth Respiratory Pattern Blood Pressure 120/72 Blood Pressure Mean 88 Blood Pressure Source Monitor Blood Pressure Position Semi-Fowlers Blood Pressure Location Right Forearm Pulse Ox 95 Oxygen Delivery Method Room Air Weight Weight: 118.841 kg Body Mass Index (BMI) 36.5 EEG Results Procedure Details EEG Procedure Details: IRASEMA CUTLER is a 49 year old M with a past medical history of , who presents for evaluation of Electroencephalogram on DATE at TIME NIHSS NIHSS Nursing Documentation NIHSS Nursing Documentation: NIHSS: Ischemic Stroke/TIA Start: 02/28/25 09:21 Text: For PCU Patients: NIH and Neuro Check every 4 Status: Active hours, PRN and with change in RN caregiver. Freq: [id number] Protocol: Activity Type Activity Date Activity User E-sign Co-sign Detail Recorded Client Recorded Date Recorded By Document 02/28/25 13:35 HS [id number] 02/28/25 13:46 HS 02/28/25 13:35 NIH Stroke Scale [NIHSS] A score of 0 is normal or asymptomatic . Total possible score is 42. Inpatient: RN or Physician to activate a stroke alert for onset of new stroke symptoms or with NIHSS increase >/= 3 points. Following change in neurological status, NIHSS will be performed per physician order or more frequently PRN. -1a. Level of Consciousness Alert; keenly responsive -1b. LOC Questions Answers BOTH questions correctly. -1c. LOC Commands Performs both tasks correctly . -2. Best Gaze Normal -3. Visual No visual loss -4. Facial Palsy Normal symmetrical movements -5a. Left Arm No drift; arm holds 90 (or 45 ) degrees for full 10 seconds -5b. Right Arm No drift; arm holds 90 (or 45 ) degrees for full 10 seconds -6a. Left Leg No drift; leg holds 30-degree position for full 5 seconds -6b. Right Leg No drift; leg holds 30-degree position for full 5 seconds -7. Limb Ataxia Absent -8. Sensory Mild-to- moderate sensory loss; -9. Best Language No aphasia; normal -10. Dysarthria Normal -11. Extinction and Inattention No abnormality -Total 1 Query Text:A score of 0 is normal or asymptomatic. Total possible score is 42 . ED: Notify Physician for NIHSS increase by > / = 3 points. Inpatient: RN or Physician to activate a stroke alert for NIHSS increase of > / = 3 points. Coma Scale [Assess] -Eye Opening Spontaneous -Motor Obeys Commands -Verbal Oriented [Total] -Coma Scale Total 15 Physical Exam Narrative Conversational, no aphasia or neglect. No face droop or dysarthria. Finger tapping symmetric. No orbiting but does provoke arm pain. No drift in BLE though lifting LLE does provoke leg pain. NIHSS 0. Lab / Micro Data 02/28/25 06:35 02/28/25 06:35 Labs: Laboratory Results - last 24 hr 02/28/25 06:35: WBC 11.6 H, RBC 4.54 L, Hgb 14.4, Hct 41.9, MCV 92.3, MCH 31.7, MCHC 34.4, RDW Std Deviation 44.8 H, RDW Coeff of Francisca 13.2, Plt Count 225, MPV 10.6, Immature Gran % (Auto) 0.900, Neut % (Auto) 61.1, Lymph % (Auto) 25.3, [place] % (Auto) 8.4, Eos % (Auto) 3.4, Baso % (Auto) 0.9, Absolute Neuts (auto) 7.1, Absolute Lymphs (auto) 2.93, Nucleated RBC % 0, PT 13.8, INR 1.0, APTT 27.3, Sodium 137, Potassium 4.0, Chloride 103, Carbon Dioxide 21.8, Anion Gap 12, BUN 17, Creatinine 0.99, Estim Creat Clear Calc 118.90, Est GFR (MDRD) Non-Af 93, BUN/Creatinine Ratio 17.4, Glucose 87, Hemoglobin A1c 5.6 L, Calcium 9.4, Troponin T High Sens < 6 02/28/25 07:56: POC Glucose 87 02/28/25 10:41: Troponin T Hi Sens 4Hr < 6 02/28/25 11:27: POC Glucose 159 H 02/28/25 17:09: POC Glucose 125 H Imaging Radiology Impression Brain CT 02/28/25 06:27 IMPRESSION: No acute intracranial hemorrhage, mass effect or midline shift. If there is concern for acute infarct, MRI may be obtained. Reading Location: [facility] Head/Neck CTA 02/28/25 06:28 IMPRESSION: The posterior cerebral arteries as well as posterior communicating artery's demonstrate mild diminution in size. This may represent normal variant could also represent vasculitis. Correlate clinically. No hemodynamically significant stenosis seen within the bilateral ICA. No significant atheromatous calcification. Reading Location: [facility] Brain MRI 02/28/25 08:54 IMPRESSION: 1. No specific evidence of an acute intracranial process. 2. Scattered supratentorial white matter abnormalities greater than would be expected to represent typical age related chronic microvascular ischemic changes in a patient of this age. This is a nonspecific finding and can be seen in various entities including CADASIL and demyelinating processes. Correlate with clinical evaluation. 3. Trace LEFT mastoid effusion. 4. Additional description as above. Reading Location: [facility] Echocardiogram 02/28/25 09:44 Interpretation Summary Normal LV size. Left ventricular systolic function is normal. The left ventricular ejection fraction is 65 %. Contrast injection was performed. Ordering Physician: Rasheeda Riojas Referring Physician: Jose Luis Camp Performed By: Cipriano Petty RCS Active Medications Active Medications Active Medications: Current Medications Generic Name Dose Route Start Last Admin Trade Name Freq PRN Reason Stop Dose Admin Acetaminophen 650 mg 02/28/25 09:21 02/28/25 14:35 Acetaminophen 325 Mg Tablet PO 650 mg Q4H PRN PRN Administration Pain 1-10 Or Fever>99.6 Albuterol Sulfate 2.5 mg 02/28/25 09:21 Albuterol 2.5 Mg/3 Ml Vial.Neb. INHALATION Q2H PRN PRN SOB &/OR WHEEZING Atorvastatin Calcium 80 mg 02/28/25 22:00 Atorvastatin Calcium 80 Mg Tablet PO QHS MARK ANTHONY Bupropion HCl 150 mg 02/28/25 10:00 02/28/25 10:13 Bupropion (Xl) 150 Mg Tablet.Xl PO 150 mg DAILY MARK ANTHONY Administration Clopidogrel Bisulfate 75 mg 02/28/25 10:00 02/28/25 10:12 Clopidogrel Bisulfate 75 Mg Tablet PO 75 mg DAILY MARK ANTHONY Administration Enoxaparin Sodium 40 mg 02/28/25 10:00 02/28/25 10:13 Enoxaparin 40 Mg/0.4 Ml Syringe SC 40 mg DAILY MARK ANTHONY Administration Furosemide 40 mg 02/28/25 10:00 02/28/25 10:12 Furosemide 40 Mg Tablet PO 40 mg DAILY MARK ANTHONY Administration Protocol Glucagon 1 mg 02/28/25 09:21 Glucagon 1 Mg/Ml Syringe IM X1 PRN HYPOGLYCEMIA Protocol Hydralazine HCl 5 mg 02/28/25 09:21 Hydralazine 20 Mg/Ml Vial IV 03/01/25 09:21 Q30M PRN maintain BP parameters with HR <60 Dextrose 250 mls @ 0 mls/hr 02/28/25 09:21 Dextrose 10%-Water IV .Q0M PRN HYPOGLYCEMIA Protocol As Directed Sodium Chloride 100 mls @ 15 mls/hr 02/28/25 09:25 IV .Q6H40M PRN Saline Flush Sodium Chloride 100 mls @ 15 mls/hr 02/28/25 09:25 IV .Q6H40M PRN Additional IVPB Infusion Insulin Human Lispro 0 unit 02/28/25 11:00 02/28/25 17:28 Insulin Lispro 100 Unit/Ml Insuln.Pen SC Not Given ACHS MARK ANTHONY Protocol Labetalol HCl 10 - 20 mg 02/28/25 09:21 Labetalol 20mg/4ml Syringe IV 03/01/25 09:21 Q10M PRN PRN maintain BP parameters with HR >/=60 Ondansetron HCl 4 mg 02/28/25 09:21 Ondansetron 4 Mg/2 Ml Vial IV Q8H PRN PRN NAUSEA/VOMITING Pantoprazole Sodium 40 mg 02/28/25 10:00 02/28/25 10:12 Pantoprazole Sodium 40 Mg Tablet PO 40 mg DAILY MARK ANTHONY Administration Psyllium Hydrophilic Mucilloid 1 packet 02/28/25 09:21 Psyllium 1 Packet PO DAILY PRN PRN Constipation Sodium Chloride 10 - 40 ml 02/28/25 09:25 0.9% Saline Lock 10 Ml Syringe IV UD PRN SALINE FLUSH
--- NOTE | 2025-02-28 21:14 | CPS ---
Patient refused PAP therapy for night time use.
[2025-02-28] MEDS: Atorvastatin Calcium 80 MG Tablet PO (21:27)
[2025-02-28 21:58] LABS: Bedside Glucose 123 mg/dL (74-106)
[2025-03-01 01:16] VITALS: BP 120/67; PULSE 67; RESP 18; TEMP 36.6; O2SAT 95
[2025-03-01 01:38] VITALS: BMI 36.5
[2025-03-01 05:13] VITALS: BP 119/68; PULSE 62; RESP 18; TEMP 36.4; O2SAT 96
[2025-03-01 06:53] LABS: Bedside Glucose 91 mg/dL (74-106)
--- NOTE | 2025-03-01 07:12 | MRI_ITS ---
PROCEDURE: SPINE CERVICAL W/WO CONTRAST 03/01/2025 REASON FOR EXAM: PAIN AND WEAKNESS TECHNIQUE: Cervical spine MRI without and with intravenous gadolinium-based contrast. CONTRAST: Clariscan VOLUME: 23 mL COMPARISON: 02/28/2025 FINDINGS: Vertebrae: Normal height. No abnormal bone marrow signal. Alignment: Normal. No spondylolisthesis. Spinal Cord: Normal in appearance. No abnormal signal or enhancement. C2-3: Unremarkable. C3-4: Unremarkable. C4-5: Unremarkable. C5-6: A mild diffuse disc bulge is present causing mild spinal canal stenosis. C6-7: There is a mild diffuse disc bulge as well as a left posterolateral disc protrusion causing severe stenosis of the left lateral recess and neural foramina and mild spinal canal stenosis. C7-T1: Unremarkable. Postcontrast images: No abnormal enhancement. MRI/Spine Cervical W/WO Contrast IMPRESSION: 1. Left posterolateral disc protrusion at C6-7 contributing to severe stenosis of the left lateral recess and neural foramina. 2. No abnormal enhancement. [facility]
[2025-03-01 07:41] LABS: Absolute Lymphocyte Count 2.41 X10^3/uL (0.83-4.51); Absolute Neutrophil Count 5.7 X10^3/uL (2.0-7.7); Basophil% 1.1 % (0-1); Eosinophil# 0.37 X10^3/uL; Eosinophils% 3.9 % (0-5); Hematocrit 41.1 % (40-54); Hemoglobin 14.1 g/dL (13.0-16.5); Lymphocyte # 2.41 X10^3/ul (0.83-4.51); Lymphocyte % 25.5 % (19-41); Mean Corp Hgb Conc 34.3 g/dL (32-36); Mean Corpuscular Hgb 31.7 pg (27.0-32.0); Mean Corpuscular Volume 92.4 fL (80-94); Mean Platelet Vol. 10.8 fl (6.2-12.0); Monocyte# 0.83 X10^3/uL; Monocyte% 8.8 % (0-10); NRBC Flagged by Analyzer 0 % (0-5); Neutrophil # 5.66 X10^3/uL (2.7-7.7); Neutrophil % 59.9 % (47-70); Platelet Count 213 K/mm3 (150-450); RBC Distribution Width CV 13.2 % (11.6-14.6); RBC Distribution Width SD 44.8 fl (35.1-43.9); Red Blood Count 4.45 M/mm3 (4.6-6.2); White Blood Count 9.5 K/mm3 (4.4-11.0)
[2025-03-01 08:32] LABS: ALB/GLOB Ratio 1.1 RATIO (0.9-2.4); AST(SGOT) 18 U/L (<=37); Alanine Aminotransfer ALT/SGPT 18 U/L (<=46); Albumin, Serum 3.8 g/dL (3.5-5.0); Alkaline Phosphatase 70 U/L (40-129); Anion Gap 10 (5-15); BUN 17 mg/dL (4-19); BUN/Creat Ratio 22.4 RATIO (10-20); Carbon Dioxide 21.4 mmol/L (21.0-32.0); Chloride 105 mmol/L (98-108); Cholesterol 202 mg/dL (<=200); Creatinine, Serum 0.74 mg/dL (0.70-1.20); EST Glomerular Filtration Rate 111 (>60); Estimated Creatinine Clearance 158.36 ml/min (50-250); Globulin 3.4 g/dL (2.2-4.2); Glucose 92 mg/dL (70-99); High Density Lipoprotein 34 mg/dL; Low Density Lipoprotein Calc. 150 mg/dL; Magnesium 2.2 mg/dL (1.5-2.2); Phosphorus 2.7 mg/dL (2.7-4.5); Potassium 4.1 mmol/L (3.3-5.1); Protein, Total 7.2 g/dL (5.9-8.4); Sodium Level 136 mmol/L (133-145); Total Bilirubin 0.36 mg/dL (0.00-1.30); Triglycerides 94 mg/dL; Very Low Density Lipoprotein 19 mg/dL (5-40); cholesterol:hdl ratio screen 5.99
[2025-03-01 08:54] VITALS: BP 115/65; PULSE 59; RESP 16; TEMP 36.6; O2SAT 95
[2025-03-01 09:00] VITALS: BMI 36.8
[2025-03-01] MEDS: Furosemide 40 MG Tablet PO (09:00)
[2025-03-01] MEDS: buPROPion (XL) 150 MG TABLET.XL PO (09:01)
[2025-03-01] MEDS: Enoxaparin 40 MG/0.4 ML Syringe SC (09:01)
[2025-03-01] MEDS: Clopidogrel Bisulfate 75 MG Tablet PO (09:01)
[2025-03-01] MEDS: Pantoprazole Sodium 40 MG Tablet PO (09:01)
[2025-03-01 12:18] LABS: Bedside Glucose 97 mg/dL (74-106)
[2025-03-01 12:50] VITALS: BP 106/64; PULSE 63; RESP 14; TEMP 36.6; O2SAT 97
[2025-03-01 14:06] VITALS: BMI 36.8
--- NOTE | 2025-03-01 14:39 | PN.NEURO_ITS ---
Assessment and Plan: Neuro Assessment/Plan IRASEMA CUTLER is a 49 M, being evaluated by Teleneurology for L sided weakness, with no evidence of stroke. On history concern for neuropathic pain in the legs and arm and with positional component. Patient's exam concerning for a C7-8 dermatome which confirms there is radiculopathy present Diagnosis: cervical radiculopathy Plan: - Medrol dosepak + gabapentin 300mg at night, recommend heat and ice packs to the neck - Physical Therapy - referral to spine clinic I personally attended this patient and spent a total time of 45minutes evaluating this patient including clinical assessment, review of chart, medical history imaging, and determining appropriate treatment and workup. Subject: Neurology Subjective 02/27/25 had acute onset LLE pain followed by LLE weakness and stumbling while at work. Next am had LUE pain an mild weakness. Pain is worse with movement. Cannot identify location of pain with one finger. Does not start in shoulder or hip and radiate down arm/leg. No loss of bowel/bladder control. NIHSS 3 (LLE 1, LUE 1, sens 1). LDL 137, A1c 5.6%. MRI brain w/ no stroke, mild WMD. 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 The pain today is shooting pain in the L arm (aparasthesias) and shooting pain in the L leg has resolved. The pain in the L leg is improving and he was able to walk. The L arm still feels weak. The symptoms have been going on for 2 days. Patient was sleeping when symptoms started. NIHSS NIHSS Nursing Documentation NIHSS Nursing Documentation: NIHSS: Ischemic Stroke/TIA Start: 02/28/25 09:21 Text: For PCU Patients: NIH and Neuro Check every 4 Status: Active hours, PRN and with change in RN caregiver. Freq: [id number] Protocol: Activity Type Activity Date Activity User E-sign Co-sign Detail Recorded Client Recorded Date Recorded By Document 03/01/25 12:52 YAEL [id number] 03/01/25 12:55 YAEL 03/01/25 12:52 NIH Stroke Scale [NIHSS] A score of 0 is normal or asymptomatic . Total possible score is 42. Inpatient: RN or Physician to activate a stroke alert for onset of new stroke symptoms or with NIHSS increase >/= 3 points. Following change in neurological status, NIHSS will be performed per physician order or more frequently PRN. -1a. Level of Consciousness Alert; keenly responsive -1b. LOC Questions Answers BOTH questions correctly. -1c. LOC Commands Performs both tasks correctly . -2. Best Gaze Normal -3. Visual No visual loss -4. Facial Palsy Normal symmetrical movements -5a. Left Arm No drift; arm holds 90 (or 45 ) degrees for full 10 seconds -5b. Right Arm No drift; arm holds 90 (or 45 ) degrees for full 10 seconds -6a. Left Leg No drift; leg holds 30-degree position for full 5 seconds -6b. Right Leg No drift; leg holds 30-degree position for full 5 seconds -7. Limb Ataxia Absent -8. Sensory Normal; no sensory loss -9. Best Language No aphasia; normal -10. Dysarthria Normal -11. Extinction and Inattention No abnormality -Total 0 Query Text:A score of 0 is normal or asymptomatic. Total possible score is 42 . ED: Notify Physician for NIHSS increase by > / = 3 points. Inpatient: RN or Physician to activate a stroke alert for NIHSS increase of > / = 3 points. Coma Scale [Assess] -Eye Opening Spontaneous -Motor Obeys Commands -Verbal Oriented [Total] -Coma Scale Total 15 EEG Results Procedure Details EEG Procedure Details: IRASEMA CUTLER is a 49 year old M with a past medical history of , who presents for evaluation of Electroencephalogram on DATE at TIME Objective Data Objective Data Vital Signs: Vital Signs Temp Pulse Resp BP Pulse Ox O2 Del Method 97.9 F 63 14 106/64 97 Room Air 03/01/25 12:50 03/01/25 12:50 03/01/25 12:50 03/01/25 12:50 03/01/25 12:50 03/01/25 12:50 Oxygen Delivery Method Room Air Weight: 119.884 kg Body Mass Index (BMI) 36.8 Intake & Output: Intake and Output for Last 24 Hours 02/27/25 02/28/25 03/01/25 23:59 23:59 23:59 Intake Total 780 / 780 Balance 780 / 780 Lab / Micro Data 03/01/25 06:35 03/01/25 06:35 Labs: Laboratory Results - last 24 hr 02/28/25 17:09: POC Glucose 125 H 02/28/25 21:28: POC Glucose 123 H 03/01/25 06:35: WBC 9.5, RBC 4.45 L, Hgb 14.1, Hct 41.1, MCV 92.4, MCH 31.7, MCHC 34.3, RDW Std Deviation 44.8 H, RDW Coeff of Francisca 13.2, Plt Count 213, MPV 10.8, Immature Gran % (Auto) 0.800, Neut % (Auto) 59.9, Lymph % (Auto) 25.5, [place] % (Auto) 8.8, Eos % (Auto) 3.9, Baso % (Auto) 1.1 H, Absolute Neuts (auto) 5.7, Absolute Lymphs (auto) 2.41, Nucleated RBC % 0, Sodium 136, Potassium 4.1, Chloride 105, Carbon Dioxide 21.4, Anion Gap 10, BUN 17, Creatinine 0.74, Estim Creat Clear Calc 158.36, Est GFR (MDRD) Non-Af 111, BUN/Creatinine Ratio 22.4 H, Glucose 92, Calcium 9.0, Phosphorus 2.7, Magnesium 2.2, Total Bilirubin 0.36, AST 18, ALT 18, Alkaline Phosphatase 70, Total Protein 7.2, Albumin 3.8, Globulin 3.4, Albumin/Globulin Ratio 1.1, Triglycerides 94, Cholesterol 202 H, LDL Cholesterol, Calc 150, VLDL Cholesterol 19, HDL Cholesterol 34 L, Cholesterol/HDL Ratio 5.99, TSH 1.160, POC Glucose 91 03/01/25 11:38: POC Glucose 97 Radiography Diagnostic Testing: Radiology Impression Brain MRI 02/28/25 08:54 IMPRESSION: 1. No specific evidence of an acute intracranial process. 2. Scattered supratentorial white matter abnormalities greater than would be expected to represent typical age related chronic microvascular ischemic changes in a patient of this age. This is a nonspecific finding and can be seen in various entities including CADASIL and demyelinating processes. Correlate with clinical evaluation. 3. Trace LEFT mastoid effusion. 4. Additional description as above. Reading Location: [facility] Echocardiogram 02/28/25 09:44 Interpretation Summary Normal LV size. Left ventricular systolic function is normal. The left ventricular ejection fraction is 65 %. Contrast injection was performed. Ordering Physician: Rasheeda Riojas Referring Physician: Jose Luis Camp Performed By: Cipriano Petty RCS Cervical Spine MRI 03/01/25 07:12 IMPRESSION: 1. Left posterolateral disc protrusion at C6-7 contributing to severe stenosis of the left lateral recess and neural foramina. 2. No abnormal enhancement. Reading Location: [facility] Physical Exam Narrative -? NEURO: -? Mental Status: The patient was alert and oriented to time, place, and person. Normal recent/remote memory, concentration, and general fund of knowledge. -? Language: speech is clear.? Naming, repetition, fluency, and comprehension intact. -? Cranial Nerves: EOMI, visual jackson full, no facial asymmetry, facial sensation intact, hearing intact, tongue midline, no evidence of atrophy or fibrillations. A -? Motor: normal bulk, tone, and strength throughout. No pronator drift or satelliting. Upper and lower extremities equal bilaterally. 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 Detailed reflex exam as performed by the nurse/NATIVIDAD and witnessed by the physician: l R L Biceps 2 2 Patellar 2 3 Ankle Babinski mute mute -? Tone: is normal and bulk is normal -? Sensation- diminished in the L C5, C7-T1 -? Coordination: No dysmetria on [id number], finger follow finger or [id number]. -? Gait- Gait initiation was normal. Narrow base with good heel strike and stride length was observed during ambulation. Turns were in stride. Patient was able to walk normally in tandem. Romberg was normal.
--- NOTE | 2025-03-01 16:05 | CASEMGMT ---
RN CM in to discuss needs at discharge. Patient denies needs or help at discharge. Patient had no further questions or concerns.
--- NOTE | 2025-03-01 16:13 | PCM.DC.SUM ---
Providers Date of Admission: 02/28/25 Date of Discharge: 03/01/25 Primary Care Physician: Dr. Jose Luis Camp, Consultations 02/28/25 09:21 Consult: Tele-Neurology Routine Consulting Provider: [facility] Reason for Consult: Acute Ischemic Stroke/TIA EMERGENT Consult: No MD Notified: Yes Date Notified: 02/28/25 Time Notified: 09:36 Method of Notification: Answering Service Nursing Unit Staff Notify [facility] of Tele-Neurology Consult: Yes Reason For Visit: LLE WEAKNESS Diagnosis Discharge Diagnosis (1) Left-sided weakness: Status: Acute Code(s): R53.1 - Weakness (2) Falls: Status: Acute Code(s): R29.6 - Repeated falls Medications at Discharge Home Medications Vitamin D3 5,000 iu PO BID Vitamin D deficiency 01/17/16 lisinopril 10 mg tablet 10 mg PO DAILY #30 tabs 07/21/22 esomeprazole magnesium 40 mg capsule,delayed release 40 mg PO DAILY 04/09/23 atorvastatin 80 mg tablet 80 mg PO DAILY 06/14/23 bupropion HCl 150 mg 24 hr tablet, extended release 150 mg PO DAILY 06/14/23 furosemide 40 mg tablet 40 mg PO DAILY 06/14/23 metformin 500 mg tablet 500 mg PO BID 06/14/23 clopidogrel 75 mg tablet 75 mg PO DAILY #30 tabs 07/25/24 gabapentin 300 mg capsule 300 mg PO QHS #30 caps 03/01/25 methylprednisolone 4 mg tablets in a dose pack (Medrol (Jak)) See Rx Instructions PO .COMPLEX #21 tabs 03/01/25 Hospital Course Summary of Care Provided Minutes Spent on Discharge: 38 Hospital Course: IRASEMA CUTLER, is a 49 M who presented to the emergency department at [facility] on 02/28/2025 with a chief complaint of left-sided weakness. Patient has a history of stroke with previous left-sided deficits and takes Plavix. He previously had been on aspirin but was transitioned to Plavix at the time of his second stroke which was back in 2021. Patient reported that his boss sent him to the emergency department because he fell twice due to leg weakness. He also is complaining of some left upper extremity weakness. He denies any paresthesias, diplopia, dysarthria or speech difficulties. Vital signs on presentation showed a temperature of 97.6, heart rate 86, respiratory rate was 16, blood pressure was 143/91, and pulse ox was 97% on room air. CBC showed a mild leukocytosis with a white count of 11.6 but was otherwise unremarkable. Coags were normal. Chemistry was unremarkable. Troponin was normal. EKG was unremarkable with unchanged from previous. CT of the brain was negative for acute findings. CTA of the head and neck showed posterior cerebral arteries as well as [employer] with mild continuation in size that could be normal variant versus vasculitis with no hemodynamically significant stenosis noted in bilateral ICAs. Given his symptoms and history there is concern for acute stroke so he was admitted to the hospital. MRI was performed and was negative for any acute findings. Echocardiogram was performed. Patient had previous bubble study so this was not repeated as it was negative at that time. EF was 65% with normal systolic function normal valves and no diastolic abnormalities. Given his left-sided radicular symptoms including pain and tingling there was concern that there could be a cervical spine component to this so an MRI of the cervical spine with and without contrast was performed and demonstrated a posterior lateral disc protrusion at C6-C7 contributing to severe stenosis of the left lateral recess and the neuroforaminal. No other abnormalities were identified. Neuro reevaluated the patient and agreed that he needs outpatient follow-up with spinal surgery. Will go ahead and get him a Medrol Dosepak as well as gabapentin 300 mg at at bedtime and referral to see Dr. Perales. He is to call the office and make an appointment to be seen within the week tomorrow. Patient was discharged home in stable condition with the above prescriptions. Discharge diagnoses: Left-sided tingling and numbness Cervical radiculopathy at C6-7 Chronic left-sided weakness History of stroke Essential hypertension Insulin resistance GERD History of VTE Tobacco abuse Obesity Physical Exam Const alert, oriented x3, no apparent distress and well nourished; Negative for average body habitus or healthy appearing Constitutional Narrative: Obese, middle-aged, white male, sitting up in bed, room is dark, watching television, appears comfortable, nontoxic General Appearance: cooperative, comfortable, well kempt and well developed Exam Limitations: no limitations Nutritional Appearance: obese HEENT normocephalic, head/scalp atraumatic and hearing grossly normal bilaterally HEENT Narrative: Mallampati 3, no thrush Eyes EOMs intact bilaterally and conjunctivae normal Eyes Narrative: No scleral icterus Neck supple Neck Narrative: Trachea midline Resp normal respiratory effort, no retractions, no use of accessory muscles and clear to auscultation bilaterally Resp Narrative: Slightly diminished diffusely with clear Auscultation: Negative for rales, rhonchi or wheezes Cardio regular rate, regular rhythm, S1 normal heart sound, S2 normal heart sound, no murmurs, no rub, no gallops and no clicks GI normal to inspection, nondistended, normoactive bowel sounds, soft to palpation and non-tender Extremity no clubbing, cyanosis or edema Extremity Narrative: Pedal and radial pulses are 2+ Skin skin turgor normal and no jaundice Neuro oriented x3, CN's II-XII intact bilaterally and No no focal motor deficits Neuro Narrative: Left-sided weakness is resolved, no sensory changes Speech: speech normal Psych affect normal Psych Narrative: Eye contact is good and patient interacts appropriately Weight / BMI Weight Weight: 119.884 kg Body Mass Index (BMI) 36.8 ABG / Lab / Microbiology Data 03/01/25 06:35 03/01/25 06:35 Laboratory: Laboratory Results - last 24 hr 02/28/25 17:09: POC Glucose 125 H 02/28/25 21:28: POC Glucose 123 H 03/01/25 06:35: WBC 9.5, RBC 4.45 L, Hgb 14.1, Hct 41.1, MCV 92.4, MCH 31.7, MCHC 34.3, RDW Std Deviation 44.8 H, RDW Coeff of Francisca 13.2, Plt Count 213, MPV 10.8, Immature Gran % (Auto) 0.800, Neut % (Auto) 59.9, Lymph % (Auto) 25.5, R[place] % (Auto) 8.8, Eos % (Auto) 3.9, Baso % (Auto) 1.1 H, Absolute Neuts (auto) 5.7, Absolute Lymphs (auto) 2.41, Nucleated RBC % 0, Sodium 136, Potassium 4.1, Chloride 105, Carbon Dioxide 21.4, Anion Gap 10, BUN 17, Creatinine 0.74, Estim Creat Clear Calc 158.36, Est GFR (MDRD) Non-Af 111, BUN/Creatinine Ratio 22.4 H, Glucose 92, Calcium 9.0, Phosphorus 2.7, Magnesium 2.2, Total Bilirubin 0.36, AST 18, ALT 18, Alkaline Phosphatase 70, Total Protein 7.2, Albumin 3.8, Globulin 3.4, Albumin/Globulin Ratio 1.1, Triglycerides 94, Cholesterol 202 H, LDL Cholesterol, Calc 150, VLDL Cholesterol 19, HDL Cholesterol 34 L, Cholesterol/HDL Ratio 5.99, TSH 1.160, POC Glucose 91 03/01/25 11:38: POC Glucose 97 Radiography Diagnostic Testing: Radiology Impression Brain MRI 02/28/25 08:54 IMPRESSION: 1. No specific evidence of an acute intracranial process. 2. Scattered supratentorial white matter abnormalities greater than would be expected to represent typical age related chronic microvascular ischemic changes in a patient of this age. This is a nonspecific finding and can be seen in various entities including CADASIL and demyelinating processes. Correlate with clinical evaluation. 3. Trace LEFT mastoid effusion. 4. Additional description as above. Reading Location: [facility] Echocardiogram 02/28/25 09:44 Interpretation Summary Normal LV size. Left ventricular systolic function is normal. The left ventricular ejection fraction is 65 %. Contrast injection was performed. Ordering Physician: Rasheeda Riojas Referring Physician: Jose Luis Camp Performed By: Cipriano Petty RCS Cervical Spine MRI 03/01/25 07:12 IMPRESSION: 1. Left posterolateral disc protrusion at C6-7 contributing to severe stenosis of the left lateral recess and neural foramina. 2. No abnormal enhancement. Reading Location: [facility] Instructions Discharge Diet: Low fat / Low cholesterol Discharge Activity: Return to Normal Activity Return to work on: 03/02/25 (Will need to be on light duty until seen by orthopedic surgery) DC O2, CPAP, BIPAP Needs Home O2 Discharge instructions: No Meaningful Use Info Meaningful Use Meaningful Use Diagnoses (Choose all that apply): None applicable Ischemic Stroke Statin Dosing Therapy Reference: STATIN DOSE THERAPY REFERENCE: * Patients > 75 years receive moderate or high dose statin therapy. * Patients 75 years or YOUNGER should receive HIGH intensity statin dose unless contraindicated. You will be required to document reason for non-treatment if statin daily dose does not meet guidelines. HIGH DOSE STATIN THERAPY DAILY Atorvastatin > than or = to 40 mg Rosuvastatin > than or = to 20 mg Amlodipine + Atorvastatin > than or = to 2.5/40 mg Ezetimibe + Simvastatin 10/80 mg Simvastatin 80mg Discharge Plan Admission Admit Date/Time: 02/28/25 08:43 Primary Reason for Your Visit: Left-sided pain and weakness Attending Provider: Rasheeda Riojas Primary Care Provider: Jose Luis Camp Consulting Providers: Bao Perez; Erin Carter; Dilcia Carrington; Elyse Thompson; Gretchen Hammond; Robbie Stephen; Sharmaine Smith; Eliot Wyatt; Gonzalo Campos; Richard Stoll; Hailee Muniz; Andrew Zhong; Jayshree Gee; Geneva George; Venus Pineda; Soren Tesfaye; Cyndi Coles; Trae Pearson; Cecy Riojas; Melina Macias Instructions Forms: Work / School Excuse Additional Instructions / Restrictions: 1. As we talked about you have a disc in your neck that is pressing on some nerves probably causing your pain. Please call the office for the spine surgeon tomorrow to set up an appointment to be seen in the next week. Please take the medications as noted below. 2. As discussed you will need to be on light duty until cleared by orthopedic surgery for your regular job duties Discharge Orders/Prescriptions Prescriptions: New methylprednisolone [Medrol (Jak)] 4 mg tablets,dose pack See Rx Instructions .ROUTE .COMPLEX Qty: 21 0RF Rx Instructions: for 6 days gabapentin 300 mg capsule 300 mg PO QHS Qty: 30 0RF Continued clopidogrel 75 mg tablet 75 mg PO DAILY Qty: 30 9RF Vitamin D3 5,000 iu PO BID Patient Comments: supplement lisinopril 10 mg Tablet 10 mg PO DAILY Qty: 30 0RF esomeprazole magnesium 40 mg capsule,delayed release(DR/EC) 40 mg PO DAILY Patient Comments: TAKE 1 CAPSULE BY MOUTH ONCE DAILY metformin 500 mg tablet 500 mg PO BID Patient Comments: TAKE 1 TABLET BY MOUTH TWICE A DAY bupropion HCl 150 mg tablet extended release 24 hr 150 mg PO DAILY Patient Comments: TAKE 1 TABLET BY MOUTH EVERY DAY atorvastatin 80 mg tablet 80 mg PO DAILY Patient Comments: TAKE 1 TABLET BY MOUTH EVERY DAY furosemide 40 mg tablet 40 mg PO DAILY Patient Comments: TAKE 1 TABLET BY MOUTH DAILY NEEDED Referrals / Follow Up: Tucker Perales MD [Med Staff - Active Staff] - Within 1 Week (Cervical disc protrusion) Jose Luis Camp DO [Primary Care Provider] - See Referral Note (As needed) Disposition Disposition (needs filled in before D/C Order can be placed): Home, Self Care Charges/Coding Visit Charges Inpatient E&M: 03172 Disch Hosp >30min
[2025-03-01 16:26] VITALS: BP 95/58; PULSE 58; RESP 16; TEMP 36.6; O2SAT 95
== END 2025-03-01 16:26 | disposition home or self-care (01) ==
LOC: ED 07:23 → PCU 09:09
PROVIDERS: Admitting Provider Internal Medicine; Emergency Provider Emergency Medicine; PCP Family Medicine; Visit Provider Internal Medicine
DX: M50.10 Cervical disc disorder with radiculopathy, unspecified cervical region (principal); I69.354 Hemiplegia and hemiparesis following cerebral infarction affecting left non-dominant side; E11.9 Type 2 diabetes mellitus without complications; M48.02 Spinal stenosis, cervical region; Z68.36 Body mass index [BMI] 36.0-36.9, adult; K21.9 Gastro-esophageal reflux disease without esophagitis; E78.5 Hyperlipidemia, unspecified; E66.9 Obesity, unspecified; E88.819 Insulin resistance, unspecified; H91.90 Unspecified hearing loss, unspecified ear; I10 Essential (primary) hypertension; G47.33 Obstructive sleep apnea (adult) (pediatric); F17.290 Nicotine dependence, other tobacco product, uncomplicated; Z79.02 Long term (current) use of antithrombotics/antiplatelets; Z79.84 Long term (current) use of oral hypoglycemic drugs
CPT/HCPCS: 36415; 70450; 70496; 70498; 70551; 72156; 80048; 80053; 80061; 82962; 83036; 83735; 84100; 84443; 84484; 85025; 85610; 85730; 93005; 93306; 94668; 94762; 96372; 97162; 97166; 97802; 99221; 99285; A9575; Q9957; Q9967; A4216; C8929; G0378